=== PATIENT | female | born 1945 | race Caucasian/White ===

== ENCOUNTER 2016-09-18 13:03 | Inpatient (IN) | payer OTHER ==
[~2016-09-18] VITALS: Ht 160 cm; Wt 73.2 kg
[2016-09-18] MEDS ORDERED: ONDANSETRON 4 MG INJ IV STA ×2 (15:35→18:46)
[2016-09-18] MEDS ORDERED: SOD CHLORIDE 0.9% 1,000 ML IV STA (15:35)
[2016-09-18] MEDS ORDERED: morphine 4 MG/ML VIAL IV STA ×2 (15:35→18:46)
[2016-09-18 16:06] LABS: ADD SCAN DIFF NO
[2016-09-18 16:08] LABS: BASOPHILS % 0.3 % (0.0-2.0); EOSINOPHILS # 0.1 10^3/ul (0.0-0.5); EOSINOPHILS % 0.8 % (0.0-7.0); HEMATOCRIT 49.2 % (37.0-47.0); HEMOGLOBIN 15.9 g/dl (12.0-16.0); LYMPHOCYTES % 32.6 % (15.0-51.0); MEAN CORPUSCULAR HEMOGLOBIN 27.5 pg (29.0-33.0); MEAN CORPUSCULAR HGB CONC 32.3 g/dl (32.0-37.0); MEAN CORPUSCULAR VOLUME 85.1 fl (82.0-101.0); MEAN PLATELET VOLUME 8.7 fl (7.4-10.4); MONOCYTE # 0.5 10^3/ul (0.3-0.9); MONOCYTES % 5.5 % (0.0-11.0); NEUTROPHIL # 5.6 10^3/ul (1.6-7.5); NEUTROPHILS % 60.4 % (39.0-77.0); PLATELET COUNT 342 10^3/UL (140-415); RED BLOOD COUNT 5.78 10^6/ul (4.20-5.40); RED CELL DISTRIBUTION WIDTH 13.2 % (11.5-14.5); WHITE BLOOD COUNT 9.2 10^3/ul (4.8-10.8)
--- NOTE | 2016-09-18 16:19 | RADRPT ---
PROCEDURE: US Abdomen. CLINICAL INDICATION: abdominal pain TECHNIQUE: Multiple real-time images were acquired of the patient's right upper quadrant abdomen a nd retroperitoneum utilizing a high resolution transducer. COMPARISON: None FINDINGS: The liver demonstrates increased echogenicity. The liver is normal in size. There is a focal 2.2 x 1.4 cm hypoechoic area in the right lobe of the liver, anterior to the gallbladder. The liver measu res 16.5 cm in length. The portal vein is patent with normal direction of flow. No intrahepatic abbey iary dilatation is seen. No gallstones are identified within the gallbladder. There is no pericholecystic fluid or gallbladd er wall thickening. The common bile duct measures 4 mm in maximal dimension. The visualized portions of the pancreas are unremarkable. The tail of the pancreas is not seen. No free fluid is identified. The right kidney is normal in size, and demonstrate normal echogenicity and cortical thickness. The right kidney measures 11.1 cm in long dimension. There is no evidence of hydronephrosis. There are no kidney stones. RPTAT: AA IMPRESSION: Fatty infiltration of the liver. 2.2 cm hypoechoic area in the right lobe of the liver, anterior to the gallbladder, may represent a focal area of fatty sparing. However, a mass is not excluded and further evaluation with MRI of the liver on a routine basis is recommended. .Bull Solis MD, MD Date Time Electronically viewed and signed by .Bull Solis MD, MD on 09/18/2016 16:19 .S/
[2016-09-18 16:28] LABS: INR 0.93; PARTIAL THROMBOPLASTIN TIME 30.9 Sec (25.0-35.0); PROTIME 12.5 Sec (12.2-14.2)
[2016-09-18] MEDS ORDERED: FOSI20TA PO (16:31)
[2016-09-18] MEDS ORDERED: METF500T4 PO ×2 (16:32→16:33)
[2016-09-18] MEDS ORDERED: SIMV20TA2 PO (16:35)
[2016-09-18] MEDS ORDERED: ASPI-664 PO (16:37)
[2016-09-18 16:43] LABS: CHLORIDE 100 mmol/L (97-110); POTASSIUM 3.8 mmol/L (3.5-5.1); SODIUM 143 mmol/L (135-144)
[2016-09-18 16:45] LABS: ALBUMIN/GLOBULIN RATIO 1.25; ALKALINE PHOSPHATASE 117 IU/L (42-121); AMYLASE 88 U/L (11-123); ANION GAP 21 (8-16); ASPARTATE AMINO TRANSFERASE 26 IU/L (15-46); BILIRUBIN,INDIRECT 0.6 mg/dl (0-1.1); BILIRUBIN,TOTAL 0.6 mg/dl (0.2-1.3); BLOOD UREA NITROGEN 22 mg/dl (7-20); CARBON DIOXIDE 26 mmol/L (21-31); CREATININE 0.64 mg/dl (0.44-1.00)
[2016-09-18 16:46] LABS: ALANINE AMINOTRANSFERASE 28 IU/L (13-69); CALCIUM 9.5 mg/dl (8.4-10.2); GLUCOSE 103 mg/dl (70-220)
[2016-09-18 16:59] LABS: TROPONIN-I < 0.012 ng/ml (0.00-0.12)
--- NOTE | 2016-09-18 17:43 | ERD ---
ER Documentation Chief Complaint Date/Time DATE: 09/18/16 TIME: 17:37 Chief Complaint PERSISTENT RUQ PAIN, MARLONA X 8 DAYS HPI This is a very pleasant 70-year-old female with a known history of diabetes and high blood pressure that presents to the emergency department complaining of persistent right upper quadrant pain for the past 8 days. The patient indicates the pain does radiate to the tip of her right scapula. She states that the pain is a sharp shooting pain and there is no alleviating or exacerbating factors to the pain. She states the pain is 6 out of 10 in intensity. She is felt nauseous but denies any hemoptysis hematemesis or melanotic stools. She denies any frequency urgency or dysuria no gross hematuria. She denies any pain that radiates to her lower abdomen. She denies any weight loss. She denies a productive or nonproductive cough. She denies any recent travel or prolonged immobilization and has no shortness of breath at rest or exertion. She states food does not exacerbate her pain and she denies a retrosternal burning epigastric chest pain. ROS All systems reviewed and are negative except as per history of present illness. Medications Home Meds Reported Medications Aspirin* (Aspirin* EC) 81 Mg Tablet.dr, 81 MG PO DAILY WITH FOOD, TAB 09/18/16 Simvastatin (Simvastatin) 20 Mg Tablet, 20 MG PO QHS for HIGH CHOLESTEROL, #30 TAB 09/18/16 Metformin* (Glucophage*) 500 Mg Tab, 500 MG PO WITH EVENING MEALS, #30 TAB 09/18/16 Fosinopril Sodium (Fosinopril Sodium) 20 Mg Tablet, 20 MG PO DAILY for BLOOD PRESSURE and KIDNEYS, TAB 09/18/16 Discontinued Reported Medications Metformin* (Glucophage*) 500 Mg Tab, 500 MG PO WITH MEALS, #90 TAB 09/18/16 Allergies Allergies: Coded Allergies: No Known Allergy (Unverified , 09/18/16) PMhx/Soc Hx Alcohol Use: No Hx Substance Use: No Hx Tobacco Use: No Smoking Status: Never smoker Physical Exam Vitals Vital Signs Date Time Temp Pulse Resp B/P Pulse Ox O2 Delivery O2 Flow Rate FiO2 09/18/16 13:15 98.7 79 19 166/96 95 Physical Exam Constitutional:Well-developed. Well-nourished. HEENT:Normocephalic. Atraumatic.Pupils were equal round reactive to light. Moist mucous membranes.No tonsillar exudates. Neck: No nuchal rigidity. No lymphadenopathy. No posterior cervical spine tenderness or step-offs. Respiratory: Not using accessory muscles of respiration.Lungs were clear to auscultation bilaterally. No rhonchi. No rales. No wheezing. Cardiovascular: Regular rate regular rhythm.No murmurs. No rubs were appreciated.S1, S2 normal. Distal pulses are palpable 2+ bilaterally. GI: Abdomen was soft. Tenderness in the right upper quadrant with negative Davila sign. No tenderness in the right lower quadrant over McBurneys point. Non Distended. No pulsatile abdominal masses or bruits. No rebound. No guarding. Bowel sounds were present and normal. Muscle skeletal: Full range of motion of both the upper and lower extremities bilaterally.Normal muscle tone.No assymetrical calf tenderness or swelling. Skin: No petechia, no purpura. No lesions on the palms or the soles of the feet. No maculopapular rash. NEURO: Patient was alert, awake, orientated x3.No facial droop. Gait observed and normal with no ataxia.Speech had regular rate and rhythm. No focal neurological deficits. Result Diagram: 09/18/16 1540 09/18/16 1540 Results 24 hrs Laboratory Tests Test 09/18/16 15:40 White Blood Count 9.210^3/ul Red Blood Count 5.7810^6/ul Hemoglobin 15.9g/dl Hematocrit 49.2% Mean Corpuscular Volume 85.1fl Mean Corpuscular Hemoglobin 27.5pg Mean Corpuscular Hemoglobin Concent 32.3g/dl Red Cell Distribution Width 13.2% Platelet Count 56220^3/UL Mean Platelet Volume 8.7fl Neutrophils % 60.4% Lymphocytes % 32.6% Monocytes % 5.5% Eosinophils % 0.8% Basophils % 0.3% Nucleated Red Blood Cells % 0.0/100WBC Neutrophils # 5.610^3/ul Lymphocytes # 3.010^3/ul Monocytes # 0.510^3/ul Eosinophils # 0.110^3/ul Basophils # 0.010^3/ul Nucleated Red Blood Cells # 0.010^3/ul Prothrombin Time 12.5Sec Prothrombin Time Ratio 1.0 INR International Normalized Ratio 0.93 Activated Partial Thromboplast Time 30.9Sec Sodium Level 143mmol/L Potassium Level 3.8mmol/L Chloride Level 100mmol/L Carbon Dioxide Level 26mmol/L Anion Gap 21 Blood Urea Nitrogen 22mg/dl Creatinine 0.64mg/dl Glucose Level 103mg/dl Calcium Level 9.5mg/dl Total Bilirubin 0.6mg/dl Direct Bilirubin 0.00mg/dl Indirect Bilirubin 0.6mg/dl Aspartate Amino Transf (AST/SGOT) 26IU/L Alanine Aminotransferase (ALT/SGPT) 28IU/L Alkaline Phosphatase 117IU/L Troponin I < 0.012ng/ml Total Protein 9.0g/dl Albumin 5.0g/dl Globulin 4.00g/dl Albumin/Globulin Ratio 1.25 Amylase Level 88U/L Lipase 102U/L Current Medications Medications (Trade) Dose Ordered Sig/Marti Route PRN Reason Start Time Stop Time Status Last Admin Dose Admin Sodium Chloride (NS) 1,000 ml @ 1,000 mls/hr Q1H STAT IV 09/18/16 15:35 09/18/16 16:34 DC 09/18/16 16:43 Morphine Sulfate (morphine) 4 mg ONCE STAT IV 09/18/16 15:35 09/18/16 15:39 DC 09/18/16 16:43 Ondansetron HCl (Zofran Inj) 4 mg ONCE STAT IV 09/18/16 15:35 09/18/16 15:39 DC 09/18/16 16:43 IV Flush 10 ml 10 ml STK-MED ONCE .ROUTE 09/18/16 17:53 09/18/16 17:54 DC 09/18/16 18:04 Sodium Chloride (NS) 100 ml @ ud STK-MED ONCE .ROUTE 09/18/16 17:53 09/18/16 17:54 DC 09/18/16 18:05 Iohexol (Omnipaque 300mg/ ml) 150 ml STK-MED ONCE .ROUTE 09/18/16 17:53 09/18/16 17:54 DC 09/18/16 18:05 Procedures/MDM This patient presented to the emergency department with abdominal pain and was seen and evaluated by myself. My differential diagnosis included but was not limited to abdominal aortic aneurysm, appendicitis, pancreatitis, perforated peptic ulcer, perforated viscus, Boerhaaves syndrome or visceral pain such as diverticulitis, DKA, esophagitis, hepatitis or bowel obstruction. The patient was placed on a bus driver/monitor, continuous pulse oximetry, and IV access was established by nursing staff. 12 Lead EKG tracing ordered and reviewed by myself showed: Normal sinus rhythm of 79 bpm and no arrhythmia. VA interval normal. QRS duration normal. No ST segment elevation. Left axis deviation No ST segment depression. No changes consistent with acute ischemia. I obtained an ultrasound of the gallbladder and there is no evidence of cholelithiasis. The patient still complained of a significant amount of pain despite being given analgesic medication. Therefore did not feel is necessary at this time and to obtain a CT scan of the abdomen which was reviewed by both myself and the radiologist and indicated followin. 4 cm by 3.2 x 2.9 cm mass in the distal body and tail of the pancreas. Pancreatic neoplasm is suspected. 2. Dilatation of the distal pancreatic duct and distal common bile duct. MRCP or ERCP might be considered for further evaluation to evaluate for pancreatic duct stenosis or ampullary tumor. No pancreatic mass or evidence of choledocholithiasis. 3. Fatty infiltration of the liver with no hepatic metastasis. No intrahepatic biliary ductal dilatation. 4. Accessory splenule. 5. Ground-glass and plate-like densities in the right left lower lobes consistent with atelectasis. 6. Diastasis rectus with a small midline umbilical hernia containing only fat. 7. 2.8 cm right adnexal cyst. This can be further evaluated with ultrasound if clinically indicated. A right ovarian cyst, paraovarian cyst or mesenteric cyst might present this fashion. 8. Status post hysterectomy. 9. Osteoarthritis of the thoracic and lumbosacral spine. 10. Atherosclerotic vascular disease. The patient received a further dose of analgesic medication with no improvement of her pain. Therefore did feel the patient required admission for observation for intractable abdominal pain and further evaluation into a suspected new onset pancreatic neoplasm. Departure Diagnosis: Primary Impression: Abdominal pain Abdominal location: right upper quadrant Qualified Code: R10.11 - Right upper quadrant abdominal pain Additional Impression: Pancreatic neoplasm Condition: Serious JAMESON JACOBS Sep 18, 2016 17:43
[2016-09-18] MEDS ORDERED: SOD CHLORIDE 0.9% 100 ML ONE (17:53)
[2016-09-18] MEDS ORDERED: IOHEXOL 300MG/ML 150 ML BTL ONE (17:53)
--- NOTE | 2016-09-18 18:28 | RADRPT ---
PROCEDURE: CT scan of the abdomen and pelvis with and without IV contrast. CLINICAL INDICATION: 70-year-old female with history of prior hysterectomy, hypertension and type 2 diabetes. Right upper quadrant abdominal pain. TECHNIQUE: Thin section axial, coronal and sagittal images were performed through the abdomen and pelvis without contrast and then following the injection of 90 cc of Omnipaque-300. Low-dose protoco l imaging was utilized. One or more of the following dose reduction techniques were used: - Automated exposure control. - Adjustment of the mA and/or kV according to patient size. Use of iterative reconstruction technique. Radiation Dose: CTDI: 18.5 and DLP: 1066 COMPARISON: None FINDINGS: Lungs and pleural space: There is peripheral atelectasis in the right left lower lobes. Soft tissues the visible portions of both breasts are normal. There are subcutaneous calcifications in the right and left gluteal areas which likely represent old injection sites. Heart: The heart is upper limits of normal size. No pericardial or pleural effusion is present. The liver, common bile duct and gallbladder: There is fatty infiltration of the liver which measures 14.2 cm AP. No hepatic mass or intrahepatic biliary ductal dilatation is identified. The gallblad gin and gallbladder wall are normal. Pancreas: There is a 3.2 x 2 point a 504 cm mass with low attenuation in the distal body and tail of the pancreas. The main pancreatic duct measures 2.5 mm which is normal. The proximal main pancrea tic duct measures 5.8 mm which is dilated. The common bile duct measures 7.1 mm which is enlarged. No choledocolith is identified. Gastrointestinal: The stomach is unremarkable but incompletely distended which accounts for gastric wall thickening. The small bowel loops are normal. There is fecal material in the colon. There is a small umbilical hernia containing fat. There is diastasis rectus. The vermiform appendix is not visualized. There is no evidence of diverticulosis or diverticulitis. Kidneys and bladder : The adrenal glands are normal. There are small benign left renal cysts measur ing under 1 cm in size. These require no follow-up. No solid mass or nephrolith is identified. Adrenal glands: Normal. Spleen: Normal. There is a 1.2 cm accessory splenule. Lymph nodes: There are small inguinal lymph nodes. Reproductive system: 82 point a by 2.2 by 2.5 cm cyst is noted in the right ovary. The uterus and l eft ovary are not identified. There are phleboliths in the pelvis. Bony elements: There are degenerative changes in the lower thoracic and lumbar spine. No acute bony fracture or bone metastasis is identified. Vasculature: There are atherosclerotic vascular calcifications in the abdominal aorta, common iliac arteries, internal and external iliac and at the origin of the celiac artery. IMPRESSION: 1. 4 cm by 3.2 x 2.9 cm mass in the distal body and tail of the pancreas. Pancreatic neoplasm is s uspected. 2. Dilatation of the distal pancreatic duct and distal common bile duct. MRCP or ERCP might be cons idered for further evaluation to evaluate for pancreatic duct stenosis or ampullary tumor. No pancr eatic mass or evidence of choledocholithiasis. 3. Fatty infiltration of the liver with no hepatic metastasis. No intrahepatic biliary ductal dilat ation. 4. Accessory splenule. 5. Ground-glass and plate-like densities in the right left lower lobes consistent with atelectasis. 6. Diastasis rectus with a small midline umbilical hernia containing only fat. 7. 2.8 cm right adnexal cyst. This can be further evaluated with ultrasound if clinically indicate d. A right ovarian cyst, paraovarian cyst or mesenteric cyst might present this fashion. 8. Status post hysterectomy. 9. Osteoarthritis of the thoracic and lumbosacral spine. 10. Atherosclerotic vascular disease. RPTAT:AAJJ Physician Pedro Date Time Electronically viewed and signed by Physician Pedro on 09/18/2016 18:28 MARIE/
[2016-09-18] MEDS ORDERED: DICLOFENAC SODIUM 37.5 MG/ML VIAL IV STA (18:46)
[2016-09-18] MEDS ORDERED: ACETAMINOPHEN 325 MG TAB PO PRN (21:00)
[2016-09-18] MEDS ORDERED: ONDANSETRON 4 MG INJ IV PRN (21:00)
[2016-09-18 22:40] VITALS: TEMP 98.5
[2016-09-19 00:24] VITALS: BP 129/74; PULSE 74; RESP 18
[2016-09-19 00:25] VITALS: Ht 160 cm; Wt 73.2 kg
[2016-09-19] MEDS ORDERED: MAGNESIUM HYDROXIDE 30ML CUP PO PRN (01:00)
[2016-09-19] MEDS ORDERED: NACL 0.9% 3 ML SYG IV SCH (01:00)
[2016-09-19] MEDS ORDERED: ALBUTEROL/IPRATROPIUM (NEB) 3 ML AMP HHN PRN (01:00)
[2016-09-19] MEDS ORDERED: morphine 2 MG INJ IV PRN (01:00)
[2016-09-19] MEDS ORDERED: ONDANSETRON 4 MG INJ IV PRN (01:00)
[2016-09-19] MEDS ORDERED: ACETAMINOPHEN 325 MG TAB PO PRN (01:00)
[2016-09-19] MEDS: ACCU-CHEK XX SCH (01:19)
[2016-09-19 05:02] LABS: ADD SCAN DIFF NO
[2016-09-19 05:03] LABS: BASOPHILS % 0.1 % (0.0-2.0); EOSINOPHILS % 0.5 % (0.0-7.0); HEMATOCRIT 41.4 % (37.0-47.0); HEMOGLOBIN 13.8 g/dl (12.0-16.0); LYMPHOCYTES # 2.4 10^3/ul (0.8-2.9); LYMPHOCYTES % 27.5 % (15.0-51.0); MEAN CORPUSCULAR HEMOGLOBIN 28.8 pg (29.0-33.0); MEAN CORPUSCULAR HGB CONC 33.3 g/dl (32.0-37.0); MEAN CORPUSCULAR VOLUME 86.4 fl (82.0-101.0); MEAN PLATELET VOLUME 8.6 fl (7.4-10.4); MONOCYTE # 0.7 10^3/ul (0.3-0.9); MONOCYTES % 7.6 % (0.0-11.0); NEUTROPHIL # 5.6 10^3/ul (1.6-7.5); PLATELET COUNT 296 10^3/UL (140-415); RED BLOOD COUNT 4.79 10^6/ul (4.20-5.40); RED CELL DISTRIBUTION WIDTH 13.2 % (11.5-14.5); WHITE BLOOD COUNT 8.7 10^3/ul (4.8-10.8)
[2016-09-19 05:22] LABS: ALBUMIN 3.8 g/dl (3.3-4.9)
[2016-09-19 05:23] LABS: POTASSIUM 4.5 mmol/L (3.5-5.1)
[2016-09-19 05:25] LABS: ALBUMIN/GLOBULIN RATIO 1.18; BILIRUBIN,INDIRECT 0.4 mg/dl (0-1.1); BILIRUBIN,TOTAL 0.4 mg/dl (0.2-1.3); CREATININE 0.82 mg/dl (0.44-1.00); PHOSPHORUS 4.4 mg/dl (2.5-4.9)
[2016-09-19 05:26] LABS: CALCIUM 8.8 mg/dl (8.4-10.2); MAGNESIUM 2.2 mg/dl (1.7-2.5)
--- NOTE | 2016-09-19 06:21 | HP ---
Date/Time of Note Date/Time of Note DATE: 09/19/16 TIME: 06:21 Assessment/Plan VTE Prophylaxis VTE Prophylaxis Intervention: heparin Lines/Catheters IV Catheter Type (from Nrsg): Saline Lock Assessment/Plan Assessment/Plan IMPRESSION 1. Probable Newly dx'd Pancreatic cancer 2. Abd Pain, likely 2/2 above 3. Hx of HTN 4. Hx of Type II Diabetes 5. hx of Dyslipidemia PLAN - Will place an Oncology consult as well as GI consult given dilated pancreatic ducts. Will discuss best way to obtain biopsy with Oncology and GI - pain mgmt - Cont home meds, but hold metformin. Instead Insulin for DM while in-patient HPI/ROS Admit Date/Time Admit Date/Time Sep 18, 2016 at 20:50 Hx of Present Illness Patient is a 70 yo female with hx of HTN, DM, Dyslipidemia who presented to hospital c/o abd pain x 1 week. Pain is diffuse, but mainly located in RUQ area with associated nausea. She reported decreased po intake as a result. Denied Chest pain, SOB, fever, chills. In ER CT a/p showed 4 cm by 3.2 x 2.9 cm mass in the distal body and tail of the pancreas. Pancreatic neoplasm is suspected. Dilatation of the distal pancreatic duct and distal common bile duct. MRCP or ERCP might be considered for further evaluation to evaluate for pancreatic duct stenosis or ampullary tumor. No pancreatic mass or evidence of choledocholithiasis. Fatty infiltration of the liver with no hepatic metastasis. No intrahepatic biliary ductal dilatation. . PMH/Family/Social Past Medical History Medical History: diabetes, high cholesterol, hypertension Social History Alcohol Use: none Smoking Status: Never smoker Drug Use: none Exam/Review of Systems Vital Signs Vitals Vital Signs Date Time Temp Pulse Resp B/P Pulse Ox O2 Delivery O2 Flow Rate FiO2 09/19/16 00:24 98.5 74 18 129/74 92 Room Air Intake and Output 09/18/16 09/18/16 09/19/16 14:59 22:59 06:59 Intake Total 480 ml Balance 480 ml Labs Result Diagram: 09/19/160 09/19/16439 Medications Medications Current Medications Ondansetron HCl (Zofran Inj) 4 mg Q6H PRN IV NAUSEA AND/OR VOMITING; Start at 01:00 Acetaminophen (Tylenol Tab) 650 mg Q6H PRN PO PAIN LEVEL 1-3 OR FEVER; Start at 01:00 Oxycodone/ Acetaminophen (Percocet (5/ 325)) 1 tab Q6H PRN PO MODERATE PAIN LEVEL 4-6; Start 09/19/16 at 01:00 Morphine Sulfate (morphine) 3 mg Q4H PRN IV SEVERE PAIN LEVEL 7-10; Start 09/19 at 01:00 Magnesium Hydroxide (Milk Of Mag) 30 ml DAILY PRN PO CONSTIPATION; Start at 01:00 Enoxaparin Sodium (Lovenox) 40 mg DAILY SC ; Start 09/19/16 at 09:00 Aspirin (Halfprin) 81 mg DAILY PO ; Start 09/19/16 at 09:00 Insulin Glargine (Lantus) 10 unit DAILY@08 SC ; Start 09/19/16 at 08:00 Diagnostic Test (Pha) (Accu-Chek) 1 ea 02 XX ; Start 09/19/16 at 02:00 Atorvastatin Calcium (Lipitor) 10 mg DAILY@21 PO ; Start 09/19/16 at 21:00 Benazepril HCl (Lotensin) 20 mg DAILY PO ; Start 09/19/16 at 09:00 CEDRICK PARKER MD Sep 19, 2016 06:21
--- NOTE | 2016-09-19 06:21 | PN ---
Date/Time of Note Date/Time of Note DATE: 09/19/16 TIME: 06:10 Assessment/Plan VTE Prophylaxis VTE Prophylaxis Intervention: heparin Lines/Catheters IV Catheter Type (from Nrsg): Saline Lock Assessment/Plan Assessment/Plan IMPRESSION 1. Probable Newly dx'd Pancreatic cancer 2. Abd Pain, likely 2/2 above 3. Hx of HTN 4. Hx of Type II Diabetes 5. hx of Dyslipidemia PLAN - Will place an Oncology consult as well as GI consult given dilated pancreatic ducts. Will discuss best way to obtain biopsy with Oncology and GI - pain mgmt - Cont home meds, but hold metformin. Instead Insulin for DM while in-patient Subjective 24 Hr Interval Summary Free Text/Dictation reported improved abd pain Exam/Review of Systems Vital Signs Vitals Vital Signs Date Time Temp Pulse Resp B/P Pulse Ox O2 Delivery O2 Flow Rate FiO2 09/19/16 00:24 98.5 74 18 129/74 92 Room Air Intake and Output 09/18/16 09/18/16 09/19/16 14:59 22:59 06:59 Intake Total 480 ml Balance 480 ml Exam Constitutional: alert, oriented, other (No acute distress) Head: atraumatic, normocephalic Eyes: EOMI, PERRL Respiratory: clear to auscultation, normal air movement Cardiovascular: nl pulses, regular rate and rhythm Gastrointestinal: soft, tender Extremities: normal pulses Results Result Diagram: 09/19/16 0440 09/19/16 0440 Results 24 hrs Laboratory Tests Test 09/18/16 15:40 09/19/16 04:40 White Blood Count 9.2 8.7 Red Blood Count 5.78 H 4.79 Hemoglobin 15.9 13.8 Hematocrit 49.2 H 41.4 Mean Corpuscular Volume 85.1 86.4 Mean Corpuscular Hemoglobin 27.5 L 28.8 L Mean Corpuscular Hemoglobin Concent 32.3 33.3 Red Cell Distribution Width 13.2 13.2 Platelet Count 342 296 Mean Platelet Volume 8.7 8.6 Neutrophils % 60.4 64.0 Lymphocytes % 32.6 27.5 Monocytes % 5.5 7.6 Eosinophils % 0.8 0.5 Basophils % 0.3 0.1 Nucleated Red Blood Cells % 0.0 0.0 Neutrophils # 5.6 5.6 Lymphocytes # 3.0 H 2.4 Monocytes # 0.5 0.7 Eosinophils # 0.1 0.0 Basophils # 0.0 0.0 Nucleated Red Blood Cells # 0.0 0.0 Prothrombin Time 12.5 Prothrombin Time Ratio 1.0 INR International Normalized Ratio 0.93 Activated Partial Thromboplast Time 30.9 Sodium Level 143 142 Potassium Level 3.8 4.5 Chloride Level 100 104 Carbon Dioxide Level 26 28 Anion Gap 21 H 15 Blood Urea Nitrogen 22 H 22 H Creatinine 0.64 0.82 Glucose Level 103 136 Calcium Level 9.5 8.8 Total Bilirubin 0.6 0.4 Direct Bilirubin 0.00 0.00 Indirect Bilirubin 0.6 0.4 Aspartate Amino Transf (AST/SGOT) 26 24 Alanine Aminotransferase (ALT/SGPT) 28 22 Alkaline Phosphatase 117 76 Troponin I < 0.012 Total Protein 9.0 H 7.0 # Albumin 5.0 H 3.8 # Globulin 4.00 H 3.20 Albumin/Globulin Ratio 1.25 1.18 Amylase Level 88 Lipase 102 Phosphorus Level 4.4 Magnesium Level 2.2 Medications Medications Current Medications Ondansetron HCl (Zofran Inj) 4 mg Q6H PRN IV NAUSEA AND/OR VOMITING; Start at 01:00 Acetaminophen (Tylenol Tab) 650 mg Q6H PRN PO PAIN LEVEL 1-3 OR FEVER; Start at 01:00 Oxycodone/ Acetaminophen (Percocet (5/ 325)) 1 tab Q6H PRN PO MODERATE PAIN LEVEL 4-6; Start 09/19/16 at 01:00 Morphine Sulfate (morphine) 3 mg Q4H PRN IV SEVERE PAIN LEVEL 7-10; Start 09/19 at 01:00 Magnesium Hydroxide (Milk Of Mag) 30 ml DAILY PRN PO CONSTIPATION; Start at 01:00 Enoxaparin Sodium (Lovenox) 40 mg DAILY SC ; Start 09/19/16 at 09:00 Aspirin (Halfprin) 81 mg DAILY PO ; Start 09/19/16 at 09:00 Insulin Glargine (Lantus) 10 unit DAILY@08 SC ; Start 09/19/16 at 08:00 Diagnostic Test (Pha) (Accu-Chek) 1 ea 02 XX ; Start 09/19/16 at 02:00 Atorvastatin Calcium (Lipitor) 10 mg DAILY@21 PO ; Start 09/19/16 at 21:00 Benazepril HCl (Lotensin) 20 mg DAILY PO ; Start 09/19/16 at 09:00 CEDRICK PARKER MD Sep 19, 2016 06:20
[2016-09-19] MEDS ORDERED: GLUCOSE GEL 15 GRAM TUBE PO PRN ×2 (07:00)
[2016-09-19] MEDS ORDERED: GLUCOSE GEL 15 GRAM TUBE BUCCAL PRN (07:00)
[2016-09-19] MEDS ORDERED: DEXTROSE 50% 50 ML SYRINGE IV PRN ×2 (07:00)
[2016-09-19] MEDS ORDERED: GLUCAGON 1 MG INJ IM PRN (07:00)
[2016-09-19] MEDS: INSULIN ASPART [NOVOLOG] 3 ML PEN SC SCH ×4 (07:50→21:00)
[2016-09-19 07:52] VITALS: BP 101/65; RESP 18
[2016-09-19] MEDS: ASPIRIN (EC) 81 MG TAB PO SCH (08:26)
[2016-09-19] MEDS: BENAZEPRIL 20 MG TAB PO SCH (08:26)
[2016-09-19] MEDS: ENOXAPARIN 40 MG/0.4 ML SYG SC SCH (08:30)
[2016-09-19] MEDS: INSULIN GLARGINE [LANtus] 3 ML PEN SC SCH (08:30)
[2016-09-19] MEDS ORDERED: FOSINOPRIL SODIUM 20 MG PO SCH (09:00)
[2016-09-19] MEDS: OXYCODONE/ACETAMINOPHEN (5/325) TAB PO PRN ×2 (13:21→21:58)
--- NOTE | 2016-09-19 13:22 | CONS ---
[facility] INITIAL INPATIENT CONSULTATION NOTE DATE OF CONSULTATION: 09/19/2016 PLACE OF SERVICE: [facility] 4th floor IMPRESSION AND PLAN: A very pleasant 70-year-old lady with a few comorbidities including BMI 28.6, hypertension, hyperlipidemia, and recent diagnosis of diabetes mellitus presenting with what appears to be rather unremarkable gallbladder, slightly plum-appearing common bile duct and pancreatic duct and head of the pancreas, and a 3 to 4 cm lesion in the tail of the pancreas that could be intraductal papillary mucinous neoplasm, a mucinous cystadenoma or cystadenocarcinoma, or a serous cystadenoma. The patient has had a diagnosis of diabetes mellitus over the last few months and that is concerning for a malignant process in the pancreas. We still have questions about functionality of the gallbladder and the head of the pancreas area, and for this reason, I am recommending further testing with HIDA scan and MRCP as well as GI consultation to be done here in the hospital and setting the patient up for endoscopic ultrasound for further evaluation of the tail of the pancreas. I explained all the above to the patient and family in detail and answered all their questions to the best of my ability. They appeared to understand and agreed with the plan. With above assessment, I have recommend the followin. HIDA scan. 2. MRCP. 3. Gastroenterology consultation. 4. Set up endoscopic ultrasound evaluation as an outpatient. Thank you again for allowing us to participate in the care of this very pleasant lady and her wonderful family. If there are any questions, please feel free to contact me at [phone]. TOTAL VISIT TIME: 45 minutes of which more than half was spent in [id number] discussion with the patient, discussions with her daughter, as well as coordination of care between multiple physicians and providers. UPDATED CLINICAL SUMMARY: The patient is a very pleasant 70-year-old lady with comorbidities including BMI 28.6 as well as hypertension, dyslipidemia, and a rather recent diagnosis of diabetes mellitus, admitted through the emergency department at [facility] with right upper quadrant pain and an incidentally discovered 4 cm x 3.2 cm x 2.9 cm mass in the distal body and tail of the pancreas. COMORBIDITIES: 1. BMI of 28.6. 2. Hypertension. 3. Dyslipidemia. 4. Type 2 diabetes mellitus diagnosed about 5 to 8 months ago. DATE OF ADMISSION: 09/18/2016 HISTORY OF PRESENT ILLNESS: The patient is a very pleasant 70-year-old lady with above-mentioned comorbidities whom we were kindly asked to consult. The patient herself reports right upper quadrant discomfort which has been going on for the last week. No associated fevers or chills. No changes in bowel or bladder habits. Diagnosis of diabetes mellitus for the last 5 to 8 months. No other major issues with the biliary system. No change in weight and no significant change in appetite and no change with type of food ingested. ALLERGIES: NO KNOWN DRUG ALLERGIES. MEDICATIONS: 1. Aspirin. 2. Fosinopril 3. Metformin. 4. Simvastatin. SOCIAL HISTORY: The patient lives with family. No reported history of smoking , drinking, or intravenous drug use. FAMILY HISTORY: No mention of major medical, surgical, or oncologic problems in the family. REVIEW OF SYSTEMS: Other than the above-mentioned, there are no other pertinent positives or pertinent negatives in a complete 14-point review of systems. PHYSICAL EXAMINATION: GENERAL: The patient appears to be a very pleasant lady of descent, appearing stated age, lying in bed comfortably and in no acute distress. BMI is 28.6. VITAL SIGNS: Temperature 97.7, blood pressure 101/65, pulse 65, respiratory rate 18, pulse oximetry 99% on room air. HEENT: Normocephalic and atraumatic. Extraocular muscles and hearing are grossly intact bilaterally and symmetrically. Sclerae are nonicteric. Oral cavity is clear; oral mucosa appeared to be pink and moist. Dentition: fair. NECK: Supple. There is no lymphadenopathy or JVD. There is no submental, submandibular or supraclavicular lymphadenopathy. CHEST: Rises symmetrically with each breath; patient is breathing comfortably. There are no audible wheezes, rales or rhonchi on the gross exam. HEART: Pulse is regular and palpable on the left wrist. Capillary refill was normal. Carotid pulses are palpable bilaterally and symmetrically in the neck. EXTREMITIES: Lower extremities contain no pitting edema around the ankles bilaterally and symmetrically. ABDOMEN: Soft, nondistended, and minimally tender to palpation in the right upper quadrant. No tenderness in the left upper quadrant. No organomegaly, caput medusae, engorged subcutaneous veins, or evidence of ascites. No peritoneal signs or guarding. SKIN: Appears to be pink and feels warm to touch. NEUROLOGIC: Awake, alert, and follows commands appropriately. LABORATORY DATA: White blood cell count 8.7, platelets 296, albumin 3.8 after resuscitation. Hemoglobin A1c 6.5. Electrolytes are normal, CO2 28, creatinine 0.82, total bilirubin 0.4, AST 24, ALT 22, alkaline phosphatase 76, amylase 88, lipase 102, INR 0.93. IMAGING: Findings were reviewed above. Note that I personally reviewed all the available and pertinent images, and I agree in general with their overall reported findings. The right upper quadrant ultrasound on 09/18/2016 showed fatty infiltration of the liver and no obvious abnormalities of the gallbladder. Common bile duct was measured 4 mm in maximal dimension. The CT scan showed a slightly larger than what is expected common bile duct and pancreatic duct in the head and the above-mentioned lesion in the tail of the pancreas. Dictated By: DELIA WOOD/DENILSON Conf#: [id number] DID#: [id number] MTDD
--- NOTE | 2016-09-19 15:20 | CONS ---
Date/Time of Note Date/Time of Note DATE: 09/19/16 TIME: 15:09 Assessment/Plan Assessment/Plan Chief Complaint/Hosp Course The patient is a 70 year old female with HTN, HLD, and recent diagnosis of diabetes mellitus, who was admitted for right upper quadrant pain associated with nausea and found to have a 4 cm x 3.2 x 2.9 cm mass in the distal body and tail of the pancreas with dilation of the distal pancreatic duct and distal common bile duct, as well as a 2.8 cm right adnexal cyst. # Distal body and tail of the pancreas mass, 4 x 3.2 x 2.9 cm - Discussed with radiologist Dr. Walter who felt that appearance of mass is more of a cystic lesion than a pancreatic adenocarcinoma. There is no vascular involvement and no other evidence of disease in the abdomen/pelvis so could potentially be resectable. - Discussed possibly biopsy by IR but Dr. Walter is hesitant due to concern for seeding. Would recommend GI consultation. Consider EUS/biopsy unless lesion too distal to reach by EUS. - Appreciate Dr. Maurer's recommendations. Agree that new diagnosis of diabetes mellitus is concerning for malignant process in the pancreas, though imaging more suspicious for cystic lesion. Therefore would want tissue confirmation prior to undertaking major surgery such as distal pancreatectomy. - Will obtain CT chest for staging - Will obtain tumor markers CA 19-9, CEA, as well as CA 125 given adnexal mass though more likely cyst. # Right adnexal cyst. Will obtain baseline US per radiologist recommendation and check CA 125. Problems: Consultation Date/Type/Reason Admit Date/Time Sep 18, 2016 at 20:50 Date of Consultation: Sep 19, 2016 Type of Consultation: Oncology Reason for Consultation Pancreatic mass Hx of Present Illness The patient is a 70 year old female with HTN, HLD, and recent diagnosis of diabetes mellitus, who was admitted for right upper quadrant pain associated with nausea and found to have a 4 cm x 3.2 x 2.9 cm mass in the distal body and tail of the pancreas with dilation of the distal pancreatic duct and distal common bile duct, as well as a 2.8 cm right adnexal cyst. The patient reports RUQ pain for the past week, no fevers/chills, no changes in bowel or bladder habits. She had the same pain about two months ago. She was diagnosed with diabetes mellitus in the last 5-8 months. No weight loss and no change in appetite. She feels normal with normal activity level, except for pain x 1 week. She currently denies pain due to pain medications. CT A/P with and without IV contrast 09/18/16 1. 4 cm by 3.2 x 2.9 cm mass in the distal body and tail of the pancreas. Pancreatic neoplasm is suspected. 2. Dilatation of the distal pancreatic duct and distal common bile duct. MRCP or ERCP might be considered for further evaluation to evaluate for pancreatic duct stenosis or ampullary tumor. No pancreatic mass or evidence of choledocholithiasis. 3. Fatty infiltration of the liver with no hepatic metastasis. No intrahepatic biliary ductal dilatation. 4. Accessory splenule. 5. Ground-glass and plate-like densities in the right left lower lobes consistent with atelectasis. 6. Diastasis rectus with a small midline umbilical hernia containing only fat. 7. 2.8 cm right adnexal cyst. This can be further evaluated with ultrasound if clinically indicated. A right ovarian cyst, paraovarian cyst or mesenteric cyst might present this fashion. 8. Status post hysterectomy. 9. Osteoarthritis of the thoracic and lumbosacral spine. 10. Atherosclerotic vascular disease. Past Medical History Medical History: diabetes, high cholesterol, hypertension Family History Significant Family History: no pertinent family hx Social History Alcohol Use: none Smoking Status: Never smoker Drug Use: none Exam/Review of Systems Vital Signs Vitals Vital Signs Date Time Temp Pulse Resp B/P Pulse Ox O2 Delivery O2 Flow Rate FiO2 09/19/16 07:52 97.7 65 18 101/65 99 09/19/16 00:24 Room Air Intake and Output 09/18/16 09/18/16 09/19/16 14:59 22:59 06:59 Intake Total 480 ml Balance 480 ml Exam Constitutional: alert, oriented Psych: no complaints Head: normocephalic Neck: supple Respiratory: clear to auscultation Cardiovascular: regular rate and rhythm Gastrointestinal: non-tender, soft Musculoskeletal: nl extremities to inspection Neurological: MOBILE MANAGER II-XII intact Results Result Diagram: 09/19/160 09/19/16439 Results 24 hrs Laboratory Tests Test 09/18/16 15:40 09/19/16 04:40 09/19/16 08:24 09/19/16 12:12 White Blood Count 9.2 8.7 Red Blood Count 5.78 H 4.79 Hemoglobin 15.9 13.8 Hematocrit 49.2 H 41.4 Mean Corpuscular Volume 85.1 86.4 Mean Corpuscular Hemoglobin 27.5 L 28.8 L Mean Corpuscular Hemoglobin Concent 32.3 33.3 Red Cell Distribution Width 13.2 13.2 Platelet Count 342 296 Mean Platelet Volume 8.7 8.6 Neutrophils % 60.4 64.0 Lymphocytes % 32.6 27.5 Monocytes % 5.5 7.6 Eosinophils % 0.8 0.5 Basophils % 0.3 0.1 Nucleated Red Blood Cells % 0.0 0.0 Neutrophils # 5.6 5.6 Lymphocytes # 3.0 H 2.4 Monocytes # 0.5 0.7 Eosinophils # 0.1 0.0 Basophils # 0.0 0.0 Nucleated Red Blood Cells # 0.0 0.0 Prothrombin Time 12.5 Prothrombin Time Ratio 1.0 INR International Normalized Ratio 0.93 Activated Partial Thromboplast Time 30.9 Sodium Level 143 142 Potassium Level 3.8 4.5 Chloride Level 100 104 Carbon Dioxide Level 26 28 Anion Gap 21 H 15 Blood Urea Nitrogen 22 H 22 H Creatinine 0.64 0.82 Glucose Level 103 136 Calcium Level 9.5 8.8 Total Bilirubin 0.6 0.4 Direct Bilirubin 0.00 0.00 Indirect Bilirubin 0.6 0.4 Aspartate Amino Transf (AST/SGOT) 26 24 Alanine Aminotransferase (ALT/SGPT) 28 22 Alkaline Phosphatase 117 76 Troponin I < 0.012 Total Protein 9.0 H 7.0 # Albumin 5.0 H 3.8 # Globulin 4.00 H 3.20 Albumin/Globulin Ratio 1.25 1.18 Amylase Level 88 Lipase 102 Hemoglobin A1c 6.5 H Phosphorus Level 4.4 Magnesium Level 2.2 Bedside Glucose 94 107 Medications Medications Current Medications Ondansetron HCl (Zofran Inj) 4 mg Q6H PRN IV NAUSEA AND/OR VOMITING; Start at 01:00 Acetaminophen (Tylenol Tab) 650 mg Q6H PRN PO PAIN LEVEL 1-3 OR FEVER; Start at 01:00 Oxycodone/ Acetaminophen (Percocet (5/ 325)) 1 tab Q6H PRN PO MODERATE PAIN LEVEL 4-6 Last administered on 09/19/16t 13:21; Admin Dose 1 TAB; Start at 01:00 Morphine Sulfate (morphine) 3 mg Q4H PRN IV SEVERE PAIN LEVEL 7-10; Start 09/19 at 01:00 Magnesium Hydroxide (Milk Of Mag) 30 ml DAILY PRN PO CONSTIPATION; Start at 01:00 Enoxaparin Sodium (Lovenox) 40 mg DAILY SC Last administered on 09/19/16 08:30 ; Admin Dose 40 MG; Start 09/19/16 at 09:00 Aspirin (Halfprin) 81 mg DAILY PO Last administered on 09/19/16 08:26; Admin Dose 81 MG; Start 09/19/16 at 09:00 Insulin Glargine (Lantus) 10 unit DAILY@08 SC Last administered on 09/19/16 08 :30; Admin Dose 10 UNIT; Start 09/19/16 at 08:00 Diagnostic Test (Pha) (Accu-Chek) 1 ea 02 XX ; Start 09/19/16 at 02:00 Atorvastatin Calcium (Lipitor) 10 mg DAILY@21 PO ; Start 09/19/16 at 21:00 Benazepril HCl (Lotensin) 20 mg DAILY PO Last administered on 09/19/16 08:26; Admin Dose 20 MG; Start 09/19/16 at 09:00 Miscellaneous Information 1 ea NOTE XX ; Start 09/19/16 at 07:00 Glucose (Glutose) 15 gm Q15M PRN PO DECREASED GLUCOSE; Start 09/19/16 at 07:00 Glucose (Glutose) 22.5 gm Q15M PRN PO DECREASED GLUCOSE; Start 09/19/16 at 07: 00 Dextrose (D50w Syringe) 25 ml Q15M PRN IV DECREASED GLUCOSE; Start 09/19/16 at 07:00 Dextrose (D50w Syringe) 50 ml Q15M PRN IV DECREASED GLUCOSE; Start 09/19/16 at 07:00 Glucagon (Glucagen) 1 mg Q15M PRN IM DECREASED GLUCOSE; Start 09/19/16 at 07:00 Glucose (Glutose) 15 gm Q15M PRN BUCCAL DECREASED GLUCOSE; Start 09/19/16 at 07 :00 SANJANA LEONARD MD Sep 19, 2016 15:20
--- NOTE | 2016-09-19 15:38 | CONS ---
Date/Time of Note Date/Time of Note DATE: 09/19/16 TIME: 15:23 Assessment/Plan Assessment/Plan Additional Assessment/Plan Assessment * Abdominal pain right upper quadrant * Low density pancreatic mass on CT distal tail and body/Dilated CBD and pancreatic duct * r/o cystic neoplasm vs solid neoplasm * r/o CBD pathology ie stones or other obstructive lesions * r/o ampullary obstructing lesion * Diabetes mellitus * Hypertension * Hyperlipidemia Plan * MRI/MRCP * CA19-9, CEA titers * ERCP vs EUS Consultation Date/Type/Reason Admit Date/Time Sep 18, 2016 at 20:50 Date of Consultation: Sep 19, 2016 Type of Consultation: Gastroenterology Reason for Consultation pancreatic mass Referring Provider: PITO LEE of Present Illness &1 year old female who was referred to emergency room because of right upper quadrant pain.Condition started 1 week ago as right upper quadrant pain sharp radiating to the back with associated nausea,Denies any history of vomiting, hematemesis nor jaundice.Past medical history includes new onset DM,Hypertension ,hyperlipidemia. Ct scan of abdomen revealed 1. 4 cm by 3.2 x 2.9 cm mass in the distal body and tail of the pancreas. Pancreatic neoplasm is suspected. 2. Dilatation of the distal pancreatic duct and distal common bile duct. MRCP or ERCP might be considered for further evaluation to evaluate for pancreatic duct stenosis or ampullary tumor. No pancreatic mass or evidence of choledocholithiasis. 3. Fatty infiltration of the liver with no hepatic metastasis. No intrahepatic biliary ductal dilatation. 4. Accessory splenule. 5. Ground-glass and plate-like densities in the right left lower lobes consistent with atelectasis. 6. Diastasis rectus with a small midline umbilical hernia containing only fat. 7. 2.8 cm right adnexal cyst. This can be further evaluated with ultrasound if clinically indicated. A right ovarian cyst, paraovarian cyst or mesenteric cyst might present this fashion. 8. Status post hysterectomy. 9. Osteoarthritis of the thoracic and lumbosacral spine. 10. Atherosclerotic vascular disease. On the floor ,patient still complains of right upper quadrant relieved with intake of analgesics,denies any vomiting,nor jaundice no fever, weight loss,nor changes in bowel habits Constitutional: improved, no complaints Eyes: no complaints ENT: no complaints Respiratory: no complaints Cardiovascular: no complaints Gastrointestinal: flatus, nausea, pain, passing stool, No blood Genitourinary: no complaints Musculoskeletal: no complaints Skin: no complaints Neurologic: no complaints Endocrine: no complaints Lymphatic: no complaints Psychological: nl mood/affect, no complaints Immunologic: no complaints Past Medical History Medical History: diabetes, high cholesterol, hypertension Past Surgical History Past Surgical Hx: no surgical history Family History Significant Family History: no pertinent family hx Social History Alcohol Use: none Smoking Status: Never smoker Drug Use: none Exam/Review of Systems Vital Signs Vitals Vital Signs Date Time Temp Pulse Resp B/P Pulse Ox O2 Delivery O2 Flow Rate FiO2 09/19/16 07:52 97.7 65 18 101/65 99 09/19/16 00:24 Room Air Intake and Output 09/18/16 09/18/16 09/19/16 15:00 23:00 07:00 Intake Total 480 ml Balance 480 ml Exam Constitutional: alert, oriented, well developed Psych: nl mood/affect, no complaints Head: atraumatic, normocephalic Eyes: EOMI, PERRL, nl conjunctiva, nl lids, nl sclera ENMT: nl external ears & nose Neck: non-tender, supple Respiratory: clear to auscultation, diminished breath sounds, normal air movement Cardiovascular: nl pulses, regular rate and rhythm Gastrointestinal: bowel sounds, nl liver, spleen, non-tender, soft, No rebound or guarding Musculoskeletal: nl extremities to inspection, nl gait and stance Extremities: normal pulses Neurological: TOOL CRIB MANAGER II-XII intact, nl mental status, nl speech, nl strength Skin: nl turgor, No rash or lesions Lymph: nl lymph nodes Results Result Diagram: 09/19/1643909/19/16 044 Results 24 hrs Laboratory Tests Test 09/18/16 15:40 09/19/16 04:40 09/19/16 08:24 09/19/16 12:12 White Blood Count 9.2 8.7 Red Blood Count 5.78 H 4.79 Hemoglobin 15.9 13.8 Hematocrit 49.2 H 41.4 Mean Corpuscular Volume 85.1 86.4 Mean Corpuscular Hemoglobin 27.5 L 28.8 L Mean Corpuscular Hemoglobin Concent 32.3 33.3 Red Cell Distribution Width 13.2 13.2 Platelet Count 342 296 Mean Platelet Volume 8.7 8.6 Neutrophils % 60.4 64.0 Lymphocytes % 32.6 27.5 Monocytes % 5.5 7.6 Eosinophils % 0.8 0.5 Basophils % 0.3 0.1 Nucleated Red Blood Cells % 0.0 0.0 Neutrophils # 5.6 5.6 Lymphocytes # 3.0 H 2.4 Monocytes # 0.5 0.7 Eosinophils # 0.1 0.0 Basophils # 0.0 0.0 Nucleated Red Blood Cells # 0.0 0.0 Prothrombin Time 12.5 Prothrombin Time Ratio 1.0 INR International Normalized Ratio 0.93 Activated Partial Thromboplast Time 30.9 Sodium Level 143 142 Potassium Level 3.8 4.5 Chloride Level 100 104 Carbon Dioxide Level 26 28 Anion Gap 21 H 15 Blood Urea Nitrogen 22 H 22 H Creatinine 0.64 0.82 Glucose Level 103 136 Calcium Level 9.5 8.8 Total Bilirubin 0.6 0.4 Direct Bilirubin 0.00 0.00 Indirect Bilirubin 0.6 0.4 Aspartate Amino Transf (AST/SGOT) 26 24 Alanine Aminotransferase (ALT/SGPT) 28 22 Alkaline Phosphatase 117 76 Troponin I < 0.012 Total Protein 9.0 H 7.0 # Albumin 5.0 H 3.8 # Globulin 4.00 H 3.20 Albumin/Globulin Ratio 1.25 1.18 Amylase Level 88 Lipase 102 Hemoglobin A1c 6.5 H Phosphorus Level 4.4 Magnesium Level 2.2 Bedside Glucose 94 107 Medications Medications Current Medications Ondansetron HCl (Zofran Inj) 4 mg Q6H PRN IV NAUSEA AND/OR VOMITING; Start at 01:00 Acetaminophen (Tylenol Tab) 650 mg Q6H PRN PO PAIN LEVEL 1-3 OR FEVER; Start at 01:00 Oxycodone/ Acetaminophen (Percocet (5/ 325)) 1 tab Q6H PRN PO MODERATE PAIN LEVEL 4-6 Last administered on 09/19/16 13:21; Admin Dose 1 TAB; Start at 01:00 Morphine Sulfate (morphine) 3 mg Q4H PRN IV SEVERE PAIN LEVEL 7-10; Start 09/19 at 01:00 Magnesium Hydroxide (Milk Of Mag) 30 ml DAILY PRN PO CONSTIPATION; Start at 01:00 Enoxaparin Sodium (Lovenox) 40 mg DAILY SC Last administered on 09/19/16 08:30 ; Admin Dose 40 MG; Start 09/19/16 at 09:00 Aspirin (Halfprin) 81 mg DAILY PO Last administered on 09/19/16 08:26; Admin Dose 81 MG; Start 09/19/16 at 09:00 Insulin Glargine (Lantus) 10 unit DAILY@08 SC Last administered on 09/19/16 08 :30; Admin Dose 10 UNIT; Start 09/19/16 at 08:00 Diagnostic Test (Pha) (Accu-Chek) 1 ea 02 XX ; Start 09/19/16 at 02:00 Atorvastatin Calcium (Lipitor) 10 mg DAILY@21 PO ; Start 09/19/16 at 21:00 Benazepril HCl (Lotensin) 20 mg DAILY PO Last administered on 09/19/16 08:26; Admin Dose 20 MG; Start 09/19/16 at 09:00 Miscellaneous Information 1 ea NOTE XX ; Start 09/19/16 at 07:00 Glucose (Glutose) 15 gm Q15M PRN PO DECREASED GLUCOSE; Start 09/19/16 at 07:00 Glucose (Glutose) 22.5 gm Q15M PRN PO DECREASED GLUCOSE; Start 09/19/16 at 07: 00 Dextrose (D50w Syringe) 25 ml Q15M PRN IV DECREASED GLUCOSE; Start 09/19/16 at 07:00 Dextrose (D50w Syringe) 50 ml Q15M PRN IV DECREASED GLUCOSE; Start 09/19/16 at 07:00 Glucagon (Glucagen) 1 mg Q15M PRN IM DECREASED GLUCOSE; Start 09/19/16 at 07:00 Glucose (Glutose) 15 gm Q15M PRN BUCCAL DECREASED GLUCOSE; Start 09/19/16 at 07 :00 ASHLEY CERVANTES MD Sep 19, 2016 15:33 Miscellaneous Information 1 ea NOTE XX ; Start 09/19/16 at 07:00 Glucose (Glutose) 15 gm Q15M PRN PO DECREASED GLUCOSE; Start 09/19/16 at 07:00 Glucose (Glutose) 22.5 gm Q15M PRN PO DECREASED GLUCOSE; Start 09/19/16 at 07: 00 Dextrose (D50w Syringe) 25 ml Q15M PRN IV DECREASED GLUCOSE; Start 09/19/16 at 07:00 Dextrose (D50w Syringe) 50 ml Q15M PRN IV DECREASED GLUCOSE; Start 09/19/16 at 07:00 Glucagon (Glucagen) 1 mg Q15M PRN IM DECREASED GLUCOSE; Start 09/19/16 at 07:00 Glucose (Glutose) 15 gm Q15M PRN BUCCAL DECREASED GLUCOSE; Start 09/19/16 at 07 :00 ASHLEY CERVANTES MD Sep 19, 2016 15:33
[2016-09-19 20:59] VITALS: BP 129/67; RESP 18
[2016-09-19] MEDS ORDERED: NON-FORMULARY/PATIENT OWN MED (Simvastatin 20 MG) PO SCH (21:00)
--- NOTE | 2016-09-19 21:47 | RADRPT ---
PROCEDURE: HIDA scan CLINICAL INDICATION: 70 -year-old patient with abdominal pain. TECHNIQUE: Following the intravenous injection of 7.6 mCi of Tc-99m mebrofenin, multiple images of the abdomen were obtained up to 60 minutes post injection. COMPARISON: No prior studies. FINDINGS: The liver is promptly visualized, demonstrates homogeneous distribution of radionuclide. There is visualization of a persistent activity in the common bile duct. There is a visualization of the gallbladder and gastrointestinal activity within normal time. IMPRESSION: 1. No evidence of a cystic duct obstruction. 2. Persistent common bile duct activity up to 60 minutes post injection and a visualization of franck l activity possibly represents physiologic uptake; a partial common bile duct obstruction cannot be entirely ruled out. Please, consider further evaluation with MRCP if clinically indicated. RPTAT: QQ .Skye Craft MD, Date Time Electronically viewed and signed by .Skye Craft MD, on 09/19/2016 21:47 .L/
[2016-09-19] MEDS: ATORVASTATIN 10 MG TAB PO SCH (21:54)
[2016-09-20] MEDS: ACCU-CHEK XX SCH (02:00)
[2016-09-20 05:19] LABS: ADD SCAN DIFF NO
[2016-09-20 05:24] LABS: BASOPHILS % 0.3 % (0.0-2.0); EOSINOPHILS # 0.1 10^3/ul (0.0-0.5); EOSINOPHILS % 1.6 % (0.0-7.0); HEMATOCRIT 44.2 % (37.0-47.0); HEMOGLOBIN 14.1 g/dl (12.0-16.0); LYMPHOCYTES # 2.9 10^3/ul (0.8-2.9); MEAN CORPUSCULAR HEMOGLOBIN 27.9 pg (29.0-33.0); MEAN CORPUSCULAR HGB CONC 31.9 g/dl (32.0-37.0); MEAN CORPUSCULAR VOLUME 87.4 fl (82.0-101.0); MEAN PLATELET VOLUME 8.8 fl (7.4-10.4); MONOCYTE # 0.5 10^3/ul (0.3-0.9); MONOCYTES % 7.2 % (0.0-11.0); NEUTROPHIL # 3.8 10^3/ul (1.6-7.5); NEUTROPHILS % 51.6 % (39.0-77.0); PLATELET COUNT 298 10^3/UL (140-415); RED BLOOD COUNT 5.06 10^6/ul (4.20-5.40); RED CELL DISTRIBUTION WIDTH 13.8 % (11.5-14.5); WHITE BLOOD COUNT 7.3 10^3/ul (4.8-10.8)
[2016-09-20 05:43] LABS: POTASSIUM 4.2 mmol/L (3.5-5.1)
[2016-09-20 05:46] LABS: CREATININE 0.77 mg/dl (0.44-1.00)
[2016-09-20 05:47] LABS: CALCIUM 9.1 mg/dl (8.4-10.2); MAGNESIUM 2.2 mg/dl (1.7-2.5); PHOSPHORUS 4.8 mg/dl (2.5-4.9)
[2016-09-20 06:13] LABS: CANCER ANTIGEN 125 14.6 U/ml (0.0-35.0); CARCINOEMBRYONIC ANTIGEN 1.9 ng/ml (0.0-5.0)
[2016-09-20 06:17] LABS: CANCER ANTIGEN 19-9 32.5 U/ml (0.0-37.0)
[2016-09-20 07:25] VITALS: BP 95/62; RESP 20
[2016-09-20] MEDS: INSULIN ASPART [NOVOLOG] 3 ML PEN SC SCH ×4 (07:50→21:00)
[2016-09-20] MEDS: INSULIN GLARGINE [LANtus] 3 ML PEN SC SCH (08:15)
[2016-09-20] MEDS: ENOXAPARIN 40 MG/0.4 ML SYG SC SCH (08:16)
--- NOTE | 2016-09-20 09:59 | PN ---
Date/Time of Note Date/Time of Note DATE: 09/20/16 TIME: 09:54 Assessment/Plan Lines/Catheters IV Catheter Type (from [facility]): Saline Lock Assessment/Plan Assessment/Plan [facility] Progress Note Date of Service: 09/20/16 Today's Impression & Plan: Overall stable with clinical picture concerning for malignancy. Tail of pancreas cystic lesion and possible process in head of pancreas. Needs further w /u which she is undergoing currently. HIDA concerning for possible CBD obstruction. MRCP pending (? being done now since patient was not in her room). I advise against percutaneous biopsy and strongly recommend EUS evaluation agustin. No indication for acute surgical intervention. With above assessment, I've recommended the following for today: 1. F/u with MRCP 2. Possible need for ERCP eval if CBD obstruction noted on MRCP; otherwise, suggest expedited EUS eval (has to be done outside of [facility] since not available here) 3. Multidisciplinary tumor board presentation Thank you again for your great care of this very pleasant patient and wonderful family. If there are any questions, please feel free to call me at [phone]. TOTAL VISIT TIME: 20 minutes of which more than half was spent in [id number] discussion with the patient, possibly including family, as well as coordination of care between multiple physicians and providers. Disclaimer: Inadvertent spelling or grammatical errors are likely due to EHR/ dictation software use and do not reflect on the overall quality of patient care. Updated Clinical Summary: The patient is a very pleasant 70-year-old lady with comorbidities including BMI 28.6 as well as hypertension, dyslipidemia, and a rather recent diagnosis of diabetes mellitus, admitted through the emergency department at [facility] with right upper quadrant pain and an incidentally discovered 4 cm x 3.2 cm x 2.9 cm mass in the distal body and tail of the pancreas. COMORBIDITIES: 1. BMI of 28.6. 2. Hypertension. 3. Dyslipidemia. 4. Type 2 diabetes mellitus diagnosed about 5 to 8 months ago. Subjective: No major reported events or complaints; no reported abd pain and under control with medications; not in her room Objective: Vitals: See below Exam: Not in her room Exam/Review of Systems Vital Signs Vitals Vital Signs Date Time Temp Pulse Resp B/P Pulse Ox O2 Delivery O2 Flow Rate FiO2 09/20/16 07:25 98.2 62 20 95/62 93 09/19/16 00:24 Room Air Intake and Output 09/19/16 09/19/16 09/20/16 15:00 23:00 07:00 Intake Total 1300 ml 240 ml Output Total 600 ml 450 ml Balance 700 ml -210 ml Results Result Diagram: 09/20/16 0433 09/20/16 0436 DELIA BURNS M.D. Sep 20, 2016 09:59
[2016-09-20] MEDS: ASPIRIN (EC) 81 MG TAB PO SCH (10:43)
[2016-09-20] MEDS: OXYCODONE/ACETAMINOPHEN (5/325) TAB PO PRN (10:43)
[2016-09-20] MEDS: BENAZEPRIL 20 MG TAB PO SCH (10:43)
[2016-09-20 10:44] VITALS: BP 125/74; PULSE 62
--- NOTE | 2016-09-20 11:05 | RADRPT ---
PROCEDURE: US Pelvis CLINICAL INDICATION: Pelvic pain TECHNIQUE: Transabdominal and transvaginal sonographic evaluation of the pelvis was performed. COMPARISON: None. FINDINGS: Status post hysterectomy. The ovaries are not visualized. No adnexal mass. No free pelvic fluid is demonstrated. IMPRESSION: Status post hysterectomy. The ovaries are not visualized. No adnexal masses. RPTAT:PP .Jez Olivares MD, MD Date Time Electronically viewed and signed by .Jez Olivares MD, MD on 09/20/2016 11:05 .V/
--- NOTE | 2016-09-20 12:43 | CONS ---
Date/Time of Note Date/Time of Note DATE: 09/20/16 TIME: 12:37 Assessment/Plan Assessment/Plan Chief Complaint/Hosp Course The patient is a 70 year old female with HTN, HLD, and recent diagnosis of diabetes mellitus, who was admitted for right upper quadrant pain associated with nausea and found to have a 4 cm x 3.2 x 2.9 cm mass in the distal body and tail of the pancreas with dilation of the distal pancreatic duct and distal common bile duct, as well as a 2.8 cm right adnexal cyst. # Distal body and tail of the pancreas mass, 4 x 3.2 x 2.9 cm - Discussed with radiologist Dr. Walter who felt that appearance of mass is more of a cystic lesion than a pancreatic adenocarcinoma. There is no vascular involvement and no other evidence of disease in the abdomen/pelvis so could potentially be resectable. - Appreciate GI recs, with plan for MRI/MRCP, ERCP vs. EUS. Consider EUS/ biopsy unless lesion too distal to reach by EUS. - Appreciate Dr. Maurer's recommendations. Agree that new diagnosis of diabetes mellitus is concerning for malignant process in the pancreas, though imaging more suspicious for cystic lesion. Therefore would want tissue confirmation prior to undertaking major surgery such as distal pancreatectomy. Per Dr. Maurer, advise against percutaneous biopsy (per radiology, concern for potential seeding) and strongly recommend EUS evaluation agustin. No indication for acute surgical intervention. - HIDA concerning for possible CBD obstruction. MRCP pending. Plan for possible ERCP eval if CBD obstruction noted on MRCP; otherwise, suggest expedited EUS eval (has to be done outside of [facility] since not available here). - Pending CT chest for staging - Tumor markers CA 19-9 (32, normal < 37), CEA (1.9, normal < 5), as well as CA 125 (14.6, normal < 35) are all within normal limits # Right adnexal cyst on CT, however US pelvis demonstrates no adnexal masses. CA 125 normal. With a office sweeper, I explained to the patient that we are in the process of working up the pancreatic mass. I did confirm with the office sweeper that the patient would not want to know her diagnosis and that she wants her family to make decisions on her behalf. Will continue to follow Problems: Consultation Date/Type/Reason Admit Date/Time Sep 18, 2016 at 20:50 Initial Consult Date 09/19/16 Type of Consultation: Oncology Referring Provider: PITO LEE 24 HR Interval Summary Free Text/Dictation Patient doing well, feels "good," no pain at this time. Exam/Review of Systems Vital Signs Vitals Vital Signs Date Time Temp Pulse Resp B/P Pulse Ox O2 Delivery O2 Flow Rate FiO2 09/20/16 10:44 62 125/74 09/20/16 07:25 98.2 20 93 09/19/16 00:24 Room Air Intake and Output 09/19/16 09/19/16 09/20/16 15:00 23:00 07:00 Intake Total 1300 ml 240 ml Output Total 600 ml 450 ml Balance 700 ml -210 ml Exam Constitutional: alert, oriented Psych: no complaints Head: normocephalic Neck: supple Respiratory: clear to auscultation Cardiovascular: regular rate and rhythm Gastrointestinal: non-tender, soft Musculoskeletal: nl extremities to inspection Neurological: MANAGER PHYSICAL II-XII intact Results Result Diagram: 09/20/16 0433 09/20/16 0436 Results 24 hrs Laboratory Tests Test 09/19/16 17:41 09/19/16 21:35 09/20/16 04:33 09/20/16 04:36 Bedside Glucose 99 98 White Blood Count 7.3 Red Blood Count 5.06 Hemoglobin 14.1 Hematocrit 44.2 Mean Corpuscular Volume 87.4 Mean Corpuscular Hemoglobin 27.9 L Mean Corpuscular Hemoglobin Concent 31.9 L Red Cell Distribution Width 13.8 Platelet Count 298 Mean Platelet Volume 8.8 Neutrophils % 51.6 Lymphocytes % 39.0 Monocytes % 7.2 Eosinophils % 1.6 Basophils % 0.3 Nucleated Red Blood Cells % 0.0 Neutrophils # 3.8 Lymphocytes # 2.9 Monocytes # 0.5 Eosinophils # 0.1 Basophils # 0.0 Nucleated Red Blood Cells # 0.0 Sodium Level 141 Potassium Level 4.2 Chloride Level 101 Carbon Dioxide Level 30 Anion Gap 14 Blood Urea Nitrogen 19 Creatinine 0.77 Glucose Level 106 Calcium Level 9.1 Phosphorus Level 4.8 Magnesium Level 2.2 Carcinoembryonic Antigen 1.9 CA 19-9 Antigen 32.5 CA 125 Antigen 14.6 Test 09/20/16 04:38 09/20/16 08:13 09/20/16 12:24 Bedside Glucose 104 118 163 Medications Medications Current Medications Ondansetron HCl (Zofran Inj) 4 mg Q6H PRN IV NAUSEA AND/OR VOMITING Last administered on 09/20/16 04:39; Admin Dose 4 MG; Start 09/19/16 at 01:00 Acetaminophen (Tylenol Tab) 650 mg Q6H PRN PO PAIN LEVEL 1-3 OR FEVER; Start at 01:00 Oxycodone/ Acetaminophen (Percocet (5/ 325)) 1 tab Q6H PRN PO MODERATE PAIN LEVEL 4-6 Last administered on 09/20/16 10:43; Admin Dose 1 TAB; Start at 01:00 Morphine Sulfate (morphine) 3 mg Q4H PRN IV SEVERE PAIN LEVEL 7-10 Last administered on 09/20/16 04:46; Admin Dose 3 MG; Start 09/19/16 at 01:00 Magnesium Hydroxide (Milk Of Mag) 30 ml DAILY PRN PO CONSTIPATION; Start at 01:00 Enoxaparin Sodium (Lovenox) 40 mg DAILY SC Last administered on 09/20/16 08:16 ; Admin Dose 40 MG; Start 09/19/16 at 09:00 Aspirin (Halfprin) 81 mg DAILY PO Last administered on 09/20/16 10:43; Admin Dose 81 MG; Start 09/19/16 at 09:00 Insulin Glargine (Lantus) 10 unit DAILY@08 SC Last administered on 09/20/16 08 :15; Admin Dose 10 UNIT; Start 09/19/16 at 08:00 Diagnostic Test (Pha) (Accu-Chek) 1 ea 02 XX ; Start 09/19/16 at 02:00 Atorvastatin Calcium (Lipitor) 10 mg DAILY@21 PO Last administered on 21:54; Admin Dose 10 MG; Start 09/19/16 at 21:00 Benazepril HCl (Lotensin) 20 mg DAILY PO Last administered on 09/20/16 10:43; Admin Dose 20 MG; Start 09/19/16 at 09:00 Miscellaneous Information 1 ea NOTE XX ; Start 09/19/16 at 07:00 Glucose (Glutose) 15 gm Q15M PRN PO DECREASED GLUCOSE; Start 09/19/16 at 07:00 Glucose (Glutose) 22.5 gm Q15M PRN PO DECREASED GLUCOSE; Start 09/19/16 at 07: 00 Dextrose (D50w Syringe) 25 ml Q15M PRN IV DECREASED GLUCOSE; Start 09/19/16 at 07:00 Dextrose (D50w Syringe) 50 ml Q15M PRN IV DECREASED GLUCOSE; Start 09/19/16 at 07:00 Glucagon (Glucagen) 1 mg Q15M PRN IM DECREASED GLUCOSE; Start 09/19/16 at 07:00 Glucose (Glutose) 15 gm Q15M PRN BUCCAL DECREASED GLUCOSE; Start 09/19/16 at 07 :00 TOSANJANA MD Sep 20, 2016 12:43
--- NOTE | 2016-09-20 15:10 | PN ---
Date/Time of Note Date/Time of Note DATE: 09/20/16 TIME: 15:08 Assessment/Plan VTE Prophylaxis VTE Prophylaxis Intervention: ambulation Lines/Catheters IV [facility] (from [facility]): Saline Lock Assessment/Plan Assessment/Plan Abdominal pain right upper quadrant improved * Low density pancreatic mass on CT distal tail and body/Dilated CBD and pancreatic duct * r/o cystic neoplasm vs solid neoplasm * r/o CBD pathology ie stones or other obstructive lesions * r/o ampullary obstructing lesion * Diabetes mellitus * Hypertension * Hyperlipidemia Plan * await MRI/MRCP results * CA19-9, CEA titers * ERCP vs EUS Subjective 24 Hr Interval Summary Free Text/Dictation * Course reviewed with RN * Patient seen and examined * no complaints * still awaiting MRCP results Exam/Review of Systems Vital Signs Vitals Vital Signs Date Time Temp Pulse Resp B/P Pulse Ox O2 Delivery O2 Flow Rate FiO2 09/20/16 10:44 62 125/74 09/20/16 07:25 98.2 20 93 09/19/16 00:24 Room Air Intake and Output 09/19/16 09/19/16 09/20/16 15:00 23:00 07:00 Intake Total 1300 ml 240 ml Output Total 600 ml 450 ml Balance 700 ml -210 ml Exam Constitutional: alert, oriented Psych: no complaints Head: normocephalic Eyes: nl conjunctiva, nl sclera Neck: non-tender, supple Respiratory: clear to auscultation, normal air movement Cardiovascular: nl pulses, regular rate and rhythm Gastrointestinal: non-tender, soft, No rebound or guarding Musculoskeletal: nl extremities to inspection, nl gait and stance Extremities: normal pulses Neurological: nl mental status, nl speech Results Result Diagram: 09/20/16 0433 09/20/16 0436 Results 24 hrs Laboratory Tests Test 09/19/16 17:41 09/19/16 21:35 09/20/16 04:33 09/20/16 04:36 Bedside Glucose 99 98 White Blood Count 7.3 Red Blood Count 5.06 Hemoglobin 14.1 Hematocrit 44.2 Mean Corpuscular Volume 87.4 Mean Corpuscular Hemoglobin 27.9 L Mean Corpuscular Hemoglobin Concent 31.9 L Red Cell Distribution Width 13.8 Platelet Count 298 Mean Platelet Volume 8.8 Neutrophils % 51.6 Lymphocytes % 39.0 Monocytes % 7.2 Eosinophils % 1.6 Basophils % 0.3 Nucleated Red Blood Cells % 0.0 Neutrophils # 3.8 Lymphocytes # 2.9 Monocytes # 0.5 Eosinophils # 0.1 Basophils # 0.0 Nucleated Red Blood Cells # 0.0 Sodium Level 141 Potassium Level 4.2 Chloride Level 101 Carbon Dioxide Level 30 Anion Gap 14 Blood Urea Nitrogen 19 Creatinine 0.77 Glucose Level 106 Calcium Level 9.1 Phosphorus Level 4.8 Magnesium Level 2.2 Carcinoembryonic Antigen 1.9 CA 19-9 Antigen 32.5 CA 125 Antigen 14.6 Test 09/20/16 04:38 09/20/16 08:13 09/20/16 12:24 Bedside Glucose 104 118 163 Medications Medications Current Medications Ondansetron HCl (Zofran Inj) 4 mg Q6H PRN IV NAUSEA AND/OR VOMITING Last administered on 09/20/16 04:39; Admin Dose 4 MG; Start 09/19/16 at 01:00 Acetaminophen (Tylenol Tab) 650 mg Q6H PRN PO PAIN LEVEL 1-3 OR FEVER; Start at 01:00 Oxycodone/ Acetaminophen (Percocet (5/ 325)) 1 tab Q6H PRN PO MODERATE PAIN LEVEL 4-6 Last administered on 09/20/16 10:43; Admin Dose 1 TAB; Start at 01:00 Morphine Sulfate (morphine) 3 mg Q4H PRN IV SEVERE PAIN LEVEL 7-10 Last administered on 09/20/16 04:46; Admin Dose 3 MG; Start 09/19/16 at 01:00 Magnesium Hydroxide (Milk Of Mag) 30 ml DAILY PRN PO CONSTIPATION; Start at 01:00 Enoxaparin Sodium (Lovenox) 40 mg DAILY SC Last administered on 09/20/16 08:16 ; Admin Dose 40 MG; Start 09/19/16 at 09:00 Aspirin (Halfprin) 81 mg DAILY PO Last administered on 09/20/16 10:43; Admin Dose 81 MG; Start 09/19/16 at 09:00 Insulin Glargine (Lantus) 10 unit DAILY@08 SC Last administered on 09/20/16 08 :15; Admin Dose 10 UNIT; Start 09/19/16 at 08:00 Diagnostic Test (Pha) (Accu-Chek) 1 ea 02 XX ; Start 09/19/16 at 02:00 Atorvastatin Calcium (Lipitor) 10 mg DAILY@21 PO Last administered on 21:54; Admin Dose 10 MG; Start 09/19/16 at 21:00 Benazepril HCl (Lotensin) 20 mg DAILY PO Last administered on 09/20/16 10:43; Admin Dose 20 MG; Start 09/19/16 at 09:00 Miscellaneous Information 1 ea NOTE XX ; Start 09/19/16 at 07:00 Glucose (Glutose) 15 gm Q15M PRN PO DECREASED GLUCOSE; Start 09/19/16 at 07:00 Glucose (Glutose) 22.5 gm Q15M PRN PO DECREASED GLUCOSE; Start 09/19/16 at 07: 00 Dextrose (D50w Syringe) 25 ml Q15M PRN IV DECREASED GLUCOSE; Start 09/19/16 at 07:00 Dextrose (D50w Syringe) 50 ml Q15M PRN IV DECREASED GLUCOSE; Start 09/19/16 at 07:00 Glucagon (Glucagen) 1 mg Q15M PRN IM DECREASED GLUCOSE; Start 09/19/16 at 07:00 Glucose (Glutose) 15 gm Q15M PRN BUCCAL DECREASED GLUCOSE; Start 09/19/16 at 07 :00 ASHLEY CERVANTES MD Sep 20, 2016 15:10
--- NOTE | 2016-09-20 16:02 | PN ---
Date/Time of Note Date/Time of Note DATE: 09/20/16 TIME: 15:36 Assessment/Plan VTE Prophylaxis VTE Prophylaxis Intervention: LMWH Lines/Catheters IV Catheter Type (from Nrs): Saline Lock Assessment/Plan Chief Complaint/Hosp Course 1. Probable Newly Dx'd Pancreatic cancer -Surgery, GI and Oncology consult appreciated pt will need EUS as out-pt and will F/U with [facility] as an out-pt -HIDA is negative, MRCP is pending - pain mgmt 2. Abd Pain, likely 2/2 above 3. Hx of HTN 4. Hx of Type II Diabetes -Cont home meds, but hold metformin. Instead Insulin for DM while in-patient PPx- Lovenox Problems: Subjective 24 Hr Interval Summary Gastrointestinal: pain Exam/Review of Systems Vital Signs Vitals Vital Signs Date Time Temp Pulse Resp B/P Pulse Ox O2 Delivery O2 Flow Rate FiO2 09/20/16 10:44 62 125/74 09/20/16 07:25 98.2 20 93 09/19/16 00:24 Room Air Intake and Output 09/19/16 09/19/16 09/20/16 15:00 23:00 07:00 Intake Total 1300 ml 240 ml Output Total 600 ml 450 ml Balance 700 ml -210 ml Exam Constitutional: alert Respiratory: clear to auscultation Cardiovascular: regular rate and rhythm Gastrointestinal: soft, No distended Musculoskeletal: nl extremities to inspection Results Result Diagram: 09/20/16 0433 09/20/16 0436 Results 24 hrs Laboratory Tests Test 09/19/16 17:41 09/19/16 21:35 09/20/16 04:33 09/20/16 04:36 Bedside Glucose 99 98 White Blood Count 7.3 Red Blood Count 5.06 Hemoglobin 14.1 Hematocrit 44.2 Mean Corpuscular Volume 87.4 Mean Corpuscular Hemoglobin 27.9 L Mean Corpuscular Hemoglobin Concent 31.9 L Red Cell Distribution Width 13.8 Platelet Count 298 Mean Platelet Volume 8.8 Neutrophils % 51.6 Lymphocytes % 39.0 Monocytes % 7.2 Eosinophils % 1.6 Basophils % 0.3 Nucleated Red Blood Cells % 0.0 Neutrophils # 3.8 Lymphocytes # 2.9 Monocytes # 0.5 Eosinophils # 0.1 Basophils # 0.0 Nucleated Red Blood Cells # 0.0 Sodium Level 141 Potassium Level 4.2 Chloride Level 101 Carbon Dioxide Level 30 Anion Gap 14 Blood Urea Nitrogen 19 Creatinine 0.77 Glucose Level 106 Calcium Level 9.1 Phosphorus Level 4.8 Magnesium Level 2.2 Carcinoembryonic Antigen 1.9 CA 19-9 Antigen 32.5 CA 125 Antigen 14.6 Test 09/20/16 04:38 09/20/16 08:13 09/20/16 12:24 Bedside Glucose 104 118 163 Medications Medications Current Medications Ondansetron HCl (Zofran Inj) 4 mg Q6H PRN IV NAUSEA AND/OR VOMITING Last administered on 09/20/16 04:39; Admin Dose 4 MG; Start 09/19/16 at 01:00 Acetaminophen (Tylenol Tab) 650 mg Q6H PRN PO PAIN LEVEL 1-3 OR FEVER; Start at 01:00 Oxycodone/ Acetaminophen (Percocet (5/ 325)) 1 tab Q6H PRN PO MODERATE PAIN LEVEL 4-6 Last administered on 09/20/16 10:43; Admin Dose 1 TAB; Start at 01:00 Morphine Sulfate (morphine) 3 mg Q4H PRN IV SEVERE PAIN LEVEL 7-10 Last administered on 09/20/16 04:46; Admin Dose 3 MG; Start 09/19/16 at 01:00 Magnesium Hydroxide (Milk Of Mag) 30 ml DAILY PRN PO CONSTIPATION; Start at 01:00 Enoxaparin Sodium (Lovenox) 40 mg DAILY SC Last administered on 09/20/16 08:16 ; Admin Dose 40 MG; Start 09/19/16 at 09:00 Aspirin (Halfprin) 81 mg DAILY PO Last administered on 09/20/16 10:43; Admin Dose 81 MG; Start 09/19/16 at 09:00 Insulin Glargine (Lantus) 10 unit DAILY@08 SC Last administered on 09/20/16 08 :15; Admin Dose 10 UNIT; Start 09/19/16 at 08:00 Diagnostic Test (Pha) (Accu-Chek) 1 ea 02 XX ; Start 09/19/16 at 02:00 Atorvastatin Calcium (Lipitor) 10 mg DAILY@21 PO Last administered on 21:54; Admin Dose 10 MG; Start 09/19/16 at 21:00 Benazepril HCl (Lotensin) 20 mg DAILY PO Last administered on 09/20/16 10:43; Admin Dose 20 MG; Start 09/19/16 at 09:00 Miscellaneous Information 1 ea NOTE XX ; Start 09/19/16 at 07:00 Glucose (Glutose) 15 gm Q15M PRN PO DECREASED GLUCOSE; Start 09/19/16 at 07:00 Glucose (Glutose) 22.5 gm Q15M PRN PO DECREASED GLUCOSE; Start 09/19/16 at 07: 00 Dextrose (D50w Syringe) 25 ml Q15M PRN IV DECREASED GLUCOSE; Start 09/19/16 at 07:00 Dextrose (D50w Syringe) 50 ml Q15M PRN IV DECREASED GLUCOSE; Start 09/19/16 at 07:00 Glucagon (Glucagen) 1 mg Q15M PRN IM DECREASED GLUCOSE; Start 09/19/16 at 07:00 Glucose (Glutose) 15 gm Q15M PRN BUCCAL DECREASED GLUCOSE; Start 09/19/16 at 07 :00 PITO LEE Sep 20, 2016 15:46
[2016-09-20 20:51] VITALS: BP 121/71; RESP 20
[2016-09-20] MEDS: ATORVASTATIN 10 MG TAB PO SCH (21:41)
[2016-09-21] MEDS: ACCU-CHEK XX SCH (01:56)
[2016-09-21] MEDS: OXYCODONE/ACETAMINOPHEN (5/325) TAB PO PRN (04:33)
[2016-09-21 07:32] VITALS: BP 106/67; PULSE 52; RESP 16
[2016-09-21] MEDS: INSULIN ASPART [NOVOLOG] 3 ML PEN SC SCH ×3 (07:50→17:55)
[2016-09-21 07:59] VITALS: BP 106/67; RESP 18
--- NOTE | 2016-09-21 08:29 | RADRPT ---
PROCEDURE: CT Chest without contrast. CLINICAL INDICATION: Pancreatic cancer. Staging scan. TECHNIQUE: CT scan of the chest without contrast was performed on a multidetector high-resolution CT scanner. Coronal and sagittal reformatted images were obtained from the axial source images. The total exam CTDI equals 15.56 mGy and the total exam DLP equals 574.20 mGy-cm. One or more of the following dose reduction techniques were used: Automated exposure control. Adjustment of the mA and/or kV according to patient size. Use of iterative reconstruction technique. COMPARISON: None FINDINGS: There is subsegmental atelectasis in the lung bases left being more prominent. No focal opacificatio n, effusion, pneumothorax, edema, or nodules are seen. There is no pulmonary infiltrate. No mass l esion to suggest neoplasm is identified. The central tracheobronchial tree is clear. The mediastinum is unremarkable without evidence for mass or lymphadenopathy. There are calcified ri ght hilar intrapulmonary and azygo-esophageal lymph nodes. The vascular structures of the mediastin um are normal in course and caliber. Aortic vascular calcifications are present. The heart size is enlarged without evidence for pericardial thickening or effusion. There is mild diffuse enlargement of the thyroid gland with no discrete thyroid nodule. The axillary regions, subpectoral regions, and supraclavicular regions are all unremarkable. Imagin g obtained through the upper abdomen reveals no acute abnormality. Redemonstrated is approximately 3 .7 cm mass in the tail of the pancreas. There is fatty infiltration of the liver. The surrounding osseous structures are remarkable for degenerative spondylosis of the spine. No osteolytic or osteo blastic lesion is detected. IMPRESSION: 1. No suspicious pulmonary nodules. 2. Bibasilar atelectasis left being more prominent. 3. Cardiomegaly. Scattered aortic vascular calcifications. 4. Mild diffuse enlargement of the thyroid gland right lobe being more prominent. No discrete thyro id nodules by CT. 5. Pancreatic tail mass. RPTAT: BB .Sudeep Stovall MD, Date Time Electronically viewed and signed by .Sudeep Stovall MD, on 09/21/2016 08:29 .O/
[2016-09-21] MEDS: BENAZEPRIL 20 MG TAB PO SCH (08:37)
[2016-09-21] MEDS: ASPIRIN (EC) 81 MG TAB PO SCH (08:37)
[2016-09-21] MEDS: INSULIN GLARGINE [LANtus] 3 ML PEN SC SCH (08:39)
--- NOTE | 2016-09-21 08:45 | RADRPT ---
PROCEDURE: MRCP without contrast. CLINICAL INDICATION: Right upper quadrant abdominal pain. TECHNIQUE: Routine MRCP was obtained without the administration of intravenous contrast. COMPARISON: None. FINDINGS: Gallbladder is unremarkable. A patent cystic duct is noted. There is mild to moderate intra and extrahepatic bile duct dilatation with common bile duct measurin g up to 12 mm in maximal diameter. There is no filling defect or choledocholithiasis. There is no biliary stricture. There is a multi septated cystic lesion occupying the pancreatic body/tail measuring up to 3.5 cm. The pancreatic duct demonstrates mild diffuse dilatation. There is no peripancreatic inflammation. IMPRESSION: Indeterminate extrahepatic biliary dilatation without choledocholithiasis or intraluminal filling de fect. If correlation with LFTs suggest cholestasis, consider ERCP as an ampullary lesion/stenosis w ould be difficult to exclude by MRCP. 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 Consider correlation with endoscopic ul trasound RPTAT: EE .Fran Stein MD, MD Date Time Electronically viewed and signed by .Fran Stein MD, on 09/21/2016 08:49 .C/
[2016-09-21] MEDS: ENOXAPARIN 40 MG/0.4 ML SYG SC SCH (09:32)
--- NOTE | 2016-09-21 14:24 | PN ---
Date/Time of Note Date/Time of Note DATE: 09/21/16 TIME: 14:01 Assessment/Plan Lines/Catheters IV Catheter Type (from [facility]): Peripheral IV Assessment/Plan Assessment/Plan [facility] Progress Note Date of Service: 09/21/16 Today's Impression & Plan: Overall stable. MRCP confirms cystic lesion in the tail of pancreas and borderline dilated CBD and pancreatic duct in the head. Will likely need ERCP eval (can be done here vs. scheduled at same time as EUS once d/c'd from hospital). If no head issues, she would need a distal pancreatectomy with splenectomy, assuming continued absence of evidence for metastatic disease. If IPMN and involvement of head of pancreas, then a total pancreatectomy would be considered (difficult operation to recover from and post op course is challenging with brittle diabetes). Would likely have her gallbladder out at the same time. No indication for acute surgical intervention. Left a message for Dr. Burris and discussed with patient, family and the team. With above assessment, I've recommended the following for today: 1. ? role for ERCP now vs. at time of outpatient EUS 2. D/c home when stable medically and after above is resolved 3. F/u with my office (please provide patient and family with my number: ) Thank you again for your great care of this very pleasant patient and wonderful family. If there are any questions, please feel free to call me at [phone]. TOTAL VISIT TIME: 20 minutes of which more than half was spent in [id number] discussion with the patient, possibly including family, as well as coordination of care between multiple physicians and providers. Disclaimer: Inadvertent spelling or grammatical errors are likely due to EHR/ dictation software use and do not reflect on the overall quality of patient care. Updated Clinical Summary: The patient is a very pleasant 70-year-old lady with comorbidities including BMI 28.6 as well as hypertension, dyslipidemia, and a rather recent diagnosis of diabetes mellitus, admitted through the emergency department at [facility] with right upper quadrant pain and an incidentally discovered 4 cm x 3.2 cm x 2.9 cm mass in the distal body and tail of the pancreas. HIDA showed persistent CBD activity after 60 min, possibly indicating partial CBD obstruction 09/20/15. MRCP on 09/21/16 confirmed cystic lesion in the tail of pancreas and borderline dilated CBD and pancreatic duct in the head. COMORBIDITIES: 1. BMI of 28.6. 2. Hypertension. 3. Dyslipidemia. 4. Type 2 diabetes mellitus diagnosed about 5 to 8 months ago. Subjective: No major reported events or complaints; reports band-like lower abd pain and under control with medications; no sob or cp; + flatus; + BM and normal; + activity Objective: Vitals: See below Exam: GENERAL: On exam, the patient was laying in bed and appeared to be comfortable and in no acute distress. ABDOMEN: Soft, nontender and nondistended. There are no peritoneal signs or guarding. SKIN: Skin appears to be pink and feels warm to touch. NEUROLOGIC: Patient is awake, alert, and follows commands appropriately. Exam/Review of Systems Vital Signs Vitals Vital Signs Date Time Temp Pulse Resp B/P Pulse Ox O2 Delivery O2 Flow Rate FiO2 09/21/16 07:59 97.6 52 18 106/67 92 09/21/16 07:32 Room Air Intake and Output 09/20/16 09/20/16 09/21/16 15:00 23:00 07:00 Intake Total 520 ml 300 ml Balance 520 ml 300 ml Results Result Diagram: 09/20/16 0433 09/20/16 0436 DELIA BURNS M.D. Sep 21, 2016 14:22
--- NOTE | 2016-09-21 15:36 | PN ---
Date/Time of Note Date/Time of Note DATE: 09/21/16 TIME: 15:26 Assessment/Plan VTE Prophylaxis VTE Prophylaxis Intervention: ambulation Lines/Catheters IV Catheter Type (from Nrs): Peripheral IV Assessment/Plan Assessment/Plan Abdominal pain right upper quadrant improved * Low density pancreatic mass on CT distal tail and body/Dilated CBD and pancreatic duct * Indeterminate extrahepatic biliary dilatation without choledocholithiasis or intraluminal filling defect. 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 pancreas by MRCP Diabetes mellitus * Hypertension * Hyperlipidemia Plan * Endoscopic ultrasound as outpatient basis Subjective 24 Hr Interval Summary Free Text/Dictation * Course reviewed with RN * Patient seen and examined * No abdominal pain * MRCP 09/20/2016 Indeterminate extrahepatic biliary dilatation without choledocholithiasis or intraluminal filling defect. If correlation with LFTs suggest cholestasis, consider ERCP as an ampullary lesion/stenosis would be difficult to exclude by MRCP. 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.Consider correlation with endoscopic ultrasound Exam/Review of Systems Vital Signs Vitals Vital Signs Date Time Temp Pulse Resp B/P Pulse Ox O2 Delivery O2 Flow Rate FiO2 09/21/16 07:59 97.6 52 18 106/67 92 09/21/16 07:32 Room Air Intake and Output 09/20/16 09/20/16 09/21/16 15:00 23:00 07:00 Intake Total 520 ml 300 ml Balance 520 ml 300 ml Exam Constitutional: alert, oriented Psych: no complaints Head: normocephalic Eyes: nl conjunctiva, nl sclera Neck: non-tender, supple Respiratory: clear to auscultation, normal air movement Cardiovascular: nl pulses, regular rate and rhythm Gastrointestinal: nl liver, spleen, non-tender, soft Musculoskeletal: nl extremities to inspection, nl gait and stance Extremities: normal pulses Neurological: nl mental status, nl speech Lymph: nl lymph nodes Results Result Diagram: 09/20/16 0433 09/20/16 0436 Results 24 hrs Laboratory Tests Test 09/20/16 17:21 09/20/16 21:40 09/21/16 07:41 09/21/16 11:32 Bedside Glucose 85 110 101 108 Medications Medications Current Medications Ondansetron HCl (Zofran Inj) 4 mg Q6H PRN IV NAUSEA AND/OR VOMITING Last administered on 09/20/16 04:39; Admin Dose 4 MG; Start 09/19/16 at 01:00 Acetaminophen (Tylenol Tab) 650 mg Q6H PRN PO PAIN LEVEL 1-3 OR FEVER; Start at 01:00 Oxycodone/ Acetaminophen (Percocet (5/ 325)) 1 tab Q6H PRN PO MODERATE PAIN LEVEL 4-6 Last administered on 09/21/16 04:33; Admin Dose 1 TAB; Start at 01:00 Morphine Sulfate (morphine) 3 mg Q4H PRN IV SEVERE PAIN LEVEL 7-10 Last administered on 09/20/16 04:46; Admin Dose 3 MG; Start 09/19/16 at 01:00 Magnesium Hydroxide (Milk Of Mag) 30 ml DAILY PRN PO CONSTIPATION; Start at 01:00 Enoxaparin Sodium (Lovenox) 40 mg DAILY SC Last administered on 09/21/16 09:32 ; Admin Dose 40 MG; Start 09/19/16 at 09:00 Aspirin (Halfprin) 81 mg DAILY PO Last administered on 09/21/16 08:37; Admin Dose 81 MG; Start 09/19/16 at 09:00 Insulin Glargine (Lantus) 10 unit DAILY@08 SC Last administered on 09/21/16 08 :39; Admin Dose 10 UNIT; Start 09/19/16 at 08:00 Diagnostic Test (Pha) (Accu-Chek) 1 ea 02 XX ; Start 09/19/16 at 02:00 Atorvastatin Calcium (Lipitor) 10 mg DAILY@21 PO Last administered on 21:41; Admin Dose 10 MG; Start 09/19/16 at 21:00 Benazepril HCl (Lotensin) 20 mg DAILY PO Last administered on 09/21/16 08:37; Admin Dose 20 MG; Start 09/19/16 at 09:00 Miscellaneous Information 1 ea NOTE XX ; Start 09/19/16 at 07:00 Glucose (Glutose) 15 gm Q15M PRN PO DECREASED GLUCOSE; Start 09/19/16 at 07:00 Glucose (Glutose) 22.5 gm Q15M PRN PO DECREASED GLUCOSE; Start 09/19/16 at 07: 00 Dextrose (D50w Syringe) 25 ml Q15M PRN IV DECREASED GLUCOSE; Start 09/19/16 at 07:00 Dextrose (D50w Syringe) 50 ml Q15M PRN IV DECREASED GLUCOSE; Start 09/19/16 at 07:00 Glucagon (Glucagen) 1 mg Q15M PRN IM DECREASED GLUCOSE; Start 09/19/16 at 07:00 Glucose (Glutose) 15 gm Q15M PRN BUCCAL DECREASED GLUCOSE; Start 09/19/16 at 07 :00 ASHLEY CERVANTES MD Sep 21, 2016 15:36
[2016-09-21 15:47] VITALS: BP 96/62; PULSE 60; RESP 20
--- NOTE | 2016-09-21 16:05 | CONS ---
Date/Time of Note Date/Time of Note DATE: 09/21/16 TIME: 15:59 Assessment/Plan Assessment/Plan Chief Complaint/Hosp Course The patient is a 70 year old female with HTN, HLD, and recent diagnosis of diabetes mellitus, who was admitted for right upper quadrant pain associated with nausea and found to have a 4 cm x 3.2 x 2.9 cm mass in the distal body and tail of the pancreas with dilation of the distal pancreatic duct and distal common bile duct, as well as a 2.8 cm right adnexal cyst. # Distal body and tail of the pancreas mass, 4 x 3.2 x 2.9 cm - Discussed with radiologist Dr. Walter who felt that appearance of mass is more of a cystic lesion than a pancreatic adenocarcinoma. There is no vascular involvement and no other evidence of disease in the abdomen/pelvis so could potentially be resectable. - Appreciate GI recs, with plan for ERCP vs. EUS. Consider EUS/biopsy unless lesion too distal to reach by EUS. - Appreciate Dr. Maurer's recommendations. Agree that new diagnosis of diabetes mellitus is concerning for malignant process in the pancreas, though imaging more suspicious for cystic lesion. Therefore would want tissue confirmation prior to undertaking major surgery such as distal pancreatectomy. Per Dr. Maurer, advise against percutaneous biopsy (per radiology, concern for potential seeding) and strongly recommend EUS evaluation agustin. No indication for acute surgical intervention. - HIDA concerning for possible CBD obstruction. - MRCP showed Indeterminate extrahepatic biliary dilatation without choledocholithiasis or intraluminal filling defect. Indeterminate large multi septated cystic lesion occupying the pancreatic tail, with imaging - - - Plan for Endoscopic ultrasound as outpatient basis per GI and follow-up with Dr. Maurer. - Per Dr. Maurer, if no head issues, she would need a distal pancreatectomy with splenectomy, assuming continued absence of evidence for metastatic disease. If IPMN and involvement of head of pancreas, then a total pancreatectomy would be considered (difficult operation to recover from and post op course is challenging with brittle diabetes). Would likely have her gallbladder out at the same time. No indication for acute surgical intervention. - Tumor markers CA 19-9 (32, normal < 37), CEA (1.9, normal < 5), as well as CA 125 (14.6, normal < 35) are all within normal limits - CT chest showed no suspicious pulmonary nodules. Bibasilar atelectasis left being more prominent. Cardiomegaly. Scattered aortic vascular calcifications. Mild diffuse enlargement of the thyroid gland right lobe being more prominent. No discrete thyroid nodules by CT. # Right adnexal cyst on CT, however US pelvis demonstrates no adnexal masses. CA 125 normal. With a immunology specialist, I explained to the patient that we are in the process of working up the pancreatic mass. I did confirm with the immunology specialist that the patient would not want to know her diagnosis and that she wants her family to make decisions on her behalf. Will continue to follow Problems: Consultation Date/Type/Reason Admit Date/Time Sep 18, 2016 at 20:50 Initial Consult Date 09/19/16 Type of Consultation: Oncology Referring Provider: PITO LEE 24 HR Interval Summary Free Text/Dictation Patient discharged home. Exam/Review of Systems Vital Signs Vitals Vital Signs Date Time Temp Pulse Resp B/P Pulse Ox O2 Delivery O2 Flow Rate FiO2 09/21/16 15:47 98.2 60 20 96/62 92 Room Air Intake and Output 09/20/16 09/20/16 09/21/16 14:59 22:59 06:59 Intake Total 520 ml 300 ml Balance 520 ml 300 ml Exam Constitutional: alert, oriented Psych: no complaints Head: normocephalic Neck: supple Respiratory: clear to auscultation Cardiovascular: regular rate and rhythm Gastrointestinal: non-tender, soft Musculoskeletal: nl extremities to inspection Neurological: RESIDENTIAL WORKER II-XII intact Results Result Diagram: 09/20/16 0433 09/20/16 0436 Results 24 hrs Laboratory Tests Test 09/20/16 17:21 09/20/16 21:40 09/21/16 07:41 09/21/16 11:32 Bedside Glucose 85 110 101 108 Medications Medications Current Medications Ondansetron HCl (Zofran Inj) 4 mg Q6H PRN IV NAUSEA AND/OR VOMITING Last administered on 09/20/16t 04:39; Admin Dose 4 MG; Start 09/19/16 at 01:00 Acetaminophen (Tylenol Tab) 650 mg Q6H PRN PO PAIN LEVEL 1-3 OR FEVER; Start at 01:00 Oxycodone/ Acetaminophen (Percocet (5/ 325)) 1 tab Q6H PRN PO MODERATE PAIN LEVEL 4-6 Last administered on 09/21/16 04:33; Admin Dose 1 TAB; Start at 01:00 Morphine Sulfate (morphine) 3 mg Q4H PRN IV SEVERE PAIN LEVEL 7-10 Last administered on 09/20/16 04:46; Admin Dose 3 MG; Start 09/19/16 at 01:00 Magnesium Hydroxide (Milk Of Mag) 30 ml DAILY PRN PO CONSTIPATION; Start at 01:00 Enoxaparin Sodium (Lovenox) 40 mg DAILY SC Last administered on 09/21/16 09:32 ; Admin Dose 40 MG; Start 09/19/16 at 09:00 Aspirin (Halfprin) 81 mg DAILY PO Last administered on 09/21/16 08:37; Admin Dose 81 MG; Start 09/19/16 at 09:00 Insulin Glargine (Lantus) 10 unit DAILY@08 SC Last administered on 09/21/16 08 :39; Admin Dose 10 UNIT; Start 09/19/16 at 08:00 Diagnostic Test (Pha) (Accu-Chek) 1 ea 02 XX ; Start 09/19/16 at 02:00 Atorvastatin Calcium (Lipitor) 10 mg DAILY@21 PO Last administered on 21:41; Admin Dose 10 MG; Start 09/19/16 at 21:00 Benazepril HCl (Lotensin) 20 mg DAILY PO Last administered on 09/21/16 08:37; Admin Dose 20 MG; Start 09/19/16 at 09:00 Miscellaneous Information 1 ea NOTE XX ; Start 09/19/16 at 07:00 Glucose (Glutose) 15 gm Q15M PRN PO DECREASED GLUCOSE; Start 09/19/16 at 07:00 Glucose (Glutose) 22.5 gm Q15M PRN PO DECREASED GLUCOSE; Start 09/19/16 at 07: 00 Dextrose (D50w Syringe) 25 ml Q15M PRN IV DECREASED GLUCOSE; Start 09/19/16 at 07:00 Dextrose (D50w Syringe) 50 ml Q15M PRN IV DECREASED GLUCOSE; Start 09/19/16 at 07:00 Glucagon (Glucagen) 1 mg Q15M PRN IM DECREASED GLUCOSE; Start 09/19/16 at 07:00 Glucose (Glutose) 15 gm Q15M PRN BUCCAL DECREASED GLUCOSE; Start 09/19/16 at 07 :00 TOSANJANA MD Sep 21, 2016 16:05
--- NOTE | 2016-09-21 16:05 | PDOCDIS ---
Discharge Instructions CONDITION Patient Condition: Good HOME CARE INSTRUCTIONS: Special Diet: carb control diet ACTIVITY: Activity Restrictions: No Restrictions FOLLOW UP/APPOINTMENTS Appointments F/U WITH DR DELIA BURNS IN HIS CLINIC INDICATED PITO LEE Sep 21, 2016 16:05
[2016-09-21] MEDS ORDERED: Oxycodone/Acetamin (5/325) PO (16:06)
--- NOTE | 2016-09-21 19:20 | DS ---
DATE OF ADMISSION: 09/18/2016 DATE OF DISCHARGE: 09/21/2016 DISCHARGE DIAGNOSES: 1. Likely pancreatic cancer. The patient to follow with Dr. Maurer for endoscopic ultrasound as an outpatient. 2. Abdominal pain secondary to above. Discharge with Percocet. 3. History of hypertension. Continue home medications. 4. History of newly diagnosed diabetes. Continue home medications. HOSPITAL COURSE: The patient is a 70-year-old with history of newly diagnosed diabetes. She presen ts with abdominal pain. She had abdominopelvic CT that showed a 4 x 3.2 cm mass in distal body and tail of the pancreas. Pancreatic neoplasm was suspected. 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 The patient was seen by Oncology as well as Dr. Maurer of Surgery and Dr. Burris of GI. The patient was felt to need an endoscopic ultrasound, which would be done as an outpatient. Dr. Maurer's clinic did arrange for patient to follow up. T he patient was cleared for discharge by Surgery and GI. On the day of discharge, the patient's mackenzie l signs, labs, physical exam were stable. She had no acute complaints. Questions answered. CONDITION ON DISCHARGE: Stable. DISPOSITION: To home. MEDICATIONS: The patient was given a prescription for Percocet 5/325 one tablet p.o. q.4 hours p.r. n. for pain. The patient is to continue her other home medications. FOLLOWUP: The patient to follow up with her PCP in 1 to [address] Mark Maurer as sched uled. Greater than 30 minutes was spent coordinating discharge of patient. Dictated By: PITO LEE MD BS/NTS Conf#: [id number] DID#: [id number]
== END 2016-09-21 18:00 | disposition home or self-care (01) | DRG 436 ==
LOC: E/R 13:03 → MS1 20:50
PROVIDERS: ADMIT Internal Medicine; ATTEND Internal Medicine
DX: C25.2 Malignant neoplasm of tail of pancreas (principal); J98.11 Atelectasis; K76.0 Fatty (change of) liver, not elsewhere classified; K86.89 Other specified diseases of pancreas; K83.8 Other specified diseases of biliary tract; E11.9 Type 2 diabetes mellitus without complications; M47.817 Spondylosis without myelopathy or radiculopathy, lumbosacral region; M47.814 Spondylosis without myelopathy or radiculopathy, thoracic region; R10.11 Right upper quadrant pain; Z79.84 Long term (current) use of oral hypoglycemic drugs; E78.5 Hyperlipidemia, unspecified; I10 Essential (primary) hypertension; Z79.82 Long term (current) use of aspirin
CPT/HCPCS: 71250; 74177; 74181; 76705; 76856; 78226; 80048; 80053; 82150; 82378; 82962; 83036; 83690; 83735; 84100; 84484; 85025; 85610; 85730; 86301; 86304; 93005; 96374; 96375; 96376; A9537; J1650; J1815; J2270; J2405; J7030; Q9967

== ENCOUNTER 2017-04-09 07:52 | Day surgery (SDC) | payer OTHER ==
[2017-04-09] VITALS (14 sets, daily range): BP systolic 100–154; BP diastolic 63–90; PULSE 70–86; RESP 18–21; Ht 160 cm; Wt 74.9 kg
[~2017-04-09] VITALS: Ht 160 cm; Wt 74.9 kg
[~2017-04-09 07:52] MED LIST: ASPI-664 PO; DEXAMETHASONE 4 MG/ML 1 ML INJ ONE; FENTAnyl 50 MCG/ML VIAL ONE; FOSI20TA PO; GLYCOPYRROLATE 0.4 MG INJ ONE; LIDOCAINE 2% (SDV) 5 ML INJ ONE; METF500T4 PO; MIDAZOLAM 1 MG/ML 2 ML INJ ONE; NEOSTIGMINE 3 MG/3 ML SYRINGE ONE; ONDANSETRON 4 MG INJ ONE; Oxycodone/Acetamin (5/325) PO; PROPOFOL 200 MG INJ ONE; ROCURONIUM 50 MG INJ ONE; SIMV20TA2 PO
[2017-04-09] MEDS ORDERED: IOHEXOL 300MG/ML 30 ML BTL ONE (09:36)
[2017-04-09] MEDS ORDERED: SUCCINYLCHOLINE CHLORIDE 100 MG/5 ML SYG IV ONE (09:59)
[2017-04-09] MEDS ORDERED: INDOMETHACIN 50 MG SUPP PR ONE ×2 (10:10→10:30)
[2017-04-09] MEDS ORDERED: LABETALOL HCL 20MG INJ ONE (10:32)
[2017-04-09] MEDS ORDERED: hydrALAzine 20 MG INJ ONE (10:33)
[2017-04-09] MEDS ORDERED: SUGAMMADEX SODIUM 200 MG/2 ML VIAL IV ONE (11:56)
--- NOTE | 2017-04-09 14:35 | OPR ---
Date/Time of Note Date/Time of Note DATE: 04/09/17 TIME: 14:30 Operative Report Procedure Date: Apr 09, 2017 Preoperative Diagnosis dilated cbd pancreatic cystic lesion in tail of pancreas Postoperative Diagnosis abn tail of pancreas brushing done stent placed in to miller duct Operation/Procedure Performed ercp Surgeon see signature line Route Sales Person none Anesthesia Type: general Anesthesiologist: ARTEM GARCIA MD Estimated Blood Loss: none Transfusion none Specimen pancreatic fluid miller duct brushing Grafts/Implants none Tubes/Drains miller stent Complications none Pt Condition Post Procedure: stable Disposition: PACU Indications pancreatic cystic lesion in tail Procedure Description ercp done sphincterotomy done 'fluid from miller duct obtained brushing duct obtained miller duct stent placed GAURI SPEAR MD Apr 09, 2017 14:35
--- NOTE | 2017-04-10 03:21 | GILP ---
DATE OF PROCEDURE: PROCEDURE: ERCP. PREOPERATIVE DIAGNOSIS: Patient presenting with history of abdominal pain. CAT scan of the abdomen shows evidence of a cystic lesion in the tail of the pancreas. Rule out malignancy of the cystic l esion. POSTOPERATIVE DIAGNOSIS: There is evidence of a narrowing of the distal pancreatic duct with irregu larity of the duct, and this is consistent with a mass type of lesion. DESCRIPTION OF PROCEDURE: After the informed written consent was obtained, the patient was intubate d by anesthesiologist, Dr. Pinzon. While the patient was in prone position, Olympus video side-view ing duodenoscope was inserted into the oropharynx, then into the esophagus and then stomach and then into the duodenum. Ampulla was located in normal location with normal morphology. At this time, b y using the Dreamtome, cannulation of the pancreatic duct was performed. The pancreatic duct showed evidence of a tortuosity. There was evidence of a loop-like appearance of the pancreatic duct note d about 2 cm above the ampullary opening, and the distal pancreatic duct appeared to show evidence o f irregularity and narrowing. This is consistent with some kind of a neoplastic process. At this t yoon, the guidewire was inserted into the pancreatic duct with some manipulation. The guidewire was passed through the loop of the pancreatic duct and advanced to the tail of the pancreatic duct. At this time, sphincterotomy was performed, about 4 mm cut was made of the sphincter of the pancreatic duct. Following this, fluid was aspirated from the pancreatic duct, sent for cytology. At this venus e, brush was inserted into the pancreatic duct over the guidewire, up to the tail of the pancreatic duct and brushing was performed a few times. [place] was retrieved. At this time, I elected to put a stent into the pancreatic duct. A 5-Estonian 10 cm long stent was not available and hence I elected to put a 5-Estonian and 7 cm long straight pancreatic duct stent, was put over the guidewire into the pancreatic duct. A couple of attempts were made to cannulate the common bile duct, it was not possi ble because this area of the ampulla was occupied by the stent and it made it difficult to get into the common bile duct; however, at this time, scope was withdrawn and the procedure was terminated. PLAN: Recommend wait for the cytology results of the pancreatic duct. Dictated By: GAURI SPEAR MD NC/NTS Conf#: [id number] DID#: [id number]
--- NOTE | 2017-04-10 21:45 | RADRPT ---
Vent Rate: 69 bpm RR Interval: 0 msec DE Interval: 152 msec QRS Duration: 86 msec QT Interval: 414 msec QTC Interval: 443 msec P-R-T [place]: 47 - -76 - 11 degrees Normal sinus rhythm Left axis deviation Cannot rule out Anterior infarct , age undetermined Abnormal ECG Electronically Signed By: Jaquan Piedra [id number]
== END 2017-04-09 13:44 | disposition home or self-care (01) ==
LOC: SDS 07:52
PROVIDERS: ATTEND Internal Medicine Gastroenterology
DX: K86.2 Cyst of pancreas (principal); I10 Essential (primary) hypertension; E11.9 Type 2 diabetes mellitus without complications
CPT/HCPCS: 43260; 82962; 93005; C2617; J0360; J1100; J2250; J2405; J2710; J3010; Q9967; Z7512; Z7610

== ENCOUNTER 2017-04-11 09:33 | Inpatient (IN) | payer OTHER ==
[~2017-04-11] VITALS: Ht 160 cm; Wt 74.4 kg
[~2017-04-11 09:33] MED LIST changes: -DEXAMETHASONE 4 MG/ML 1 ML INJ ONE; -FENTAnyl 50 MCG/ML VIAL ONE; -GLYCOPYRROLATE 0.4 MG INJ ONE; -LIDOCAINE 2% (SDV) 5 ML INJ ONE; -METF500T4 PO; -MIDAZOLAM 1 MG/ML 2 ML INJ ONE; -NEOSTIGMINE 3 MG/3 ML SYRINGE ONE; -ONDANSETRON 4 MG INJ ONE; -Oxycodone/Acetamin (5/325) PO; -PROPOFOL 200 MG INJ ONE; -ROCURONIUM 50 MG INJ ONE
[2017-04-11] MEDS ORDERED: SOD CHLORIDE 0.9% 500 ML IV STA (11:45)
[2017-04-11] MEDS ORDERED: ONDANSETRON 4 MG INJ IV STA (11:45)
[2017-04-11 12:12] LABS: ABNORMAL IP MESSAGE 1; BASOPHIL # 0.1 10^3/ul (0.0-0.1); BASOPHILS % 0.3 % (0.0-2.0); HEMATOCRIT 48.4 % (37.0-47.0); HEMOGLOBIN 16.4 g/dl (12.0-16.0); LYMPHOCYTES # 1.2 10^3/ul (0.8-2.9); LYMPHOCYTES % 5.4 % (15.0-51.0); MEAN CORPUSCULAR HEMOGLOBIN 28.6 pg (29.0-33.0); MEAN CORPUSCULAR HGB CONC 33.9 g/dl (32.0-37.0); MEAN CORPUSCULAR VOLUME 84.5 fl (82.0-101.0); MEAN PLATELET VOLUME 8.7 fl (7.4-10.4); MONOCYTE # 1.5 10^3/ul (0.3-0.9); MONOCYTES % 6.7 % (0.0-11.0); NEUTROPHIL # 19.9 10^3/ul (1.6-7.5); NEUTROPHILS % 86.9 % (39.0-77.0); PLATELET COUNT 298 10^3/UL (140-415); RED BLOOD COUNT 5.73 10^6/ul (4.20-5.40); RED CELL DISTRIBUTION WIDTH 13.5 % (11.5-14.5); WHITE BLOOD COUNT 22.9 10^3/ul (4.8-10.8)
[2017-04-11 12:16] LABS: POSITIVE DIFF @See below
[2017-04-11 12:32] LABS: ALBUMIN 4.8 g/dl (3.3-4.9); ALBUMIN/GLOBULIN RATIO 1.17; BILIRUBIN,INDIRECT 1.2 mg/dl (0-1.1); BILIRUBIN,TOTAL 1.2 mg/dl (0.2-1.3); CREATININE 0.63 mg/dl (0.44-1.00); POTASSIUM 3.9 mmol/L (3.5-5.1); TOTAL PROTEIN 8.9 g/dl (6.1-8.1)
[2017-04-11 12:37] LABS: ADD UMIC YES; UR ASCORBIC ACID NEGATIVE (NEGATIVE); UR BILIRUBIN (Dip) NEGATIVE (NEGATIVE); UR BLOOD (Dip) NEGATIVE (NEGATIVE); UR CLARITY SLIGHTLY CLOUDY (CLEAR); UR COLOR AMBER (YELLOW); UR GLUCOSE (Dip) 1+ mg/dL (NEGATIVE); UR KETONES (Dip) NEGATIVE (NEGATIVE); UR LEUKOCYTE ESTERASE (Dip) NEGATIVE Leu/ul (NEGATIVE); UR MUCUS MANY /HPF (NONE SEEN); UR NITRITE (Dip) NEGATIVE (NEGATIVE); UR RBC 3 /HPF (0-5); UR SPECIFIC GRAVITY (Dip) 1.028 (1.003-1.030); UR SQUAMOUS EPITHELIAL CELL FEW /HPF (FEW); UR TOTAL PROTEIN (Dip) 2+ mg/dl (NEGATIVE); UR UROBILINOGEN (Dip) NEGATIVE (NEGATIVE)
[2017-04-11] MEDS ORDERED: SOD CHLORIDE 0.9% 100 ML ONE (13:44)
[2017-04-11] MEDS ORDERED: IOHEXOL 300MG/ML 150 ML BTL ONE (13:44)
--- NOTE | 2017-04-11 14:19 | RADRPT ---
PROCEDURE: CT Abdomen and Pelvis with contrast. CLINICAL INDICATION: Abdomen and pelvis pain. TECHNIQUE: CT scan of the abdomen and pelvis with contrast was performed. The patient was scanned following the uncomplicated intravenous administration of 100 cc of Omnipaque-300. Coronal and sag ittal reformatted images were obtained from the axial source images. Images were reviewed on a high- resolution PACS workstation. Total exam DLP is 1000.48 mGy-cm. CTDIvol is 16.07 mGy. One or more of the following dose reduction techniques were used: Automated exposure control, adjustment of the mA and/or kV according to patient size, use of iterative reconstruction technique. DICOM images are available. COMPARISON: MRI of the abdomen dated 09/20/2016 which demonstrated a multi septated cystic lesion in the tail of the pancreas suggestive of a mucinous cystic neoplasm. FINDINGS: There is mild atelectasis at both lung bases posteriorly. The lung bases are otherwise normal. There is no pleural effusion or pericardial effusion. The heart is mildly enlarged. The liver is normal in size and diffusely decreased attenuation consistent with fatty metamorphosis. There is no focal hepatic lesion. The gallbladder and bile ducts are normal. The spleen is normal in size. There is no focal splenic lesion. Both adrenals are normal with no enlargement or mass. There is a low attenuation mass in the tail of the pancreas measuring 3.9 x 2.7 cm. There are thin e nhancing septations. There is extensive surrounding mesenteric edema and there is a small amount of free fluid in the left anterior pararenal space and the left paracolic gutter. The pancreas Scratch and there is a stent in the pancreatic duct extending into the duodenum. Both kidneys demonstrate normal contrast enhancement. There is no renal mass or hydronephrosis. The abdominal aorta is not dilated. There is calcification in the aorta consistent with atherosclero sis. There is no retroperitoneal lymphadenopathy or mass. There is no pelvic lymphadenopathy or mass. The bladder and distal ureters are normal. The periappendiceal region is unremarkable with no evidence of appendicitis. The bowel and mesentery are normal. There is no free fluid or free gas. There are degenerative changes of the spine. The osseous structures are otherwise unremarkable with no fracture or lytic lesion. IMPRESSION: 1. Mild atelectasis at the lung bases posteriorly. 2. Mild cardiomegaly. 3. Fatty metamorphosis of the liver. No focal hepatic lesion. 4. Low attenuation mass in the tail of the pancreas measuring 3.9 x 2.7 cm. There are associated th in enhancing septations and surrounding mesenteric edema and free fluid. The findings may be due to mucinous cystic neoplasm as indicated previously. Surrounding edema and free fluid may indicate pse udocyst with pancreatitis. Correlation with endoscopic ultrasound should be considered. RPTAT: QQ .Maico Broussard MD, MD Date Time Electronically viewed and signed by .Maico Broussard MD, on 04/11/2017 14:19 .R/
--- NOTE | 2017-04-11 14:27 | ERD ---
ER Documentation Chief Complaint Chief Complaint ABD PAIN WITH NAUSEA AND VOMITING HPI This is a 71-year-old female with a recent diagnosis of pancreatic cancer for which she had an ERCP and stenting completed last week who is now presenting with abdominal pain, nausea and vomiting. The patient reports that she has had abdominal pain since the procedure. It is been getting progressively worse over the last several days. She has had a decreased appetite because she has felt nauseated and has needed to vomit each time she tries to eat or drink anything. Her vomit is nonbilious and nonbloody. She describes it as mostly clear and mucousy. The patient has felt ill, but she does not endorse fevers. She has had intermittent chills. She does not endorse diarrhea or changes to bowel movements urination. The patient has had no headache or vision changes. The patient does not endorse neck or back pain. She does describe a mild sore throat since the procedure, which is expected. The patient denies lightheadedness or dizziness. The patient has had no chest pain or shortness of breath or trouble breathing. The patient has had no focal deficits. The patient has had no weakness or numbness or tingling to the face or extremities. ROS All systems reviewed and are negative except as per history of present illness. Medications Home Meds Reported Medications Aspirin* (Aspirin* EC) 81 Mg Tablet.dr, 81 MG PO DAILY WITH FOOD, TAB 09/18/16 Simvastatin (Simvastatin) 20 Mg Tablet, 20 MG PO QHS for HIGH CHOLESTEROL, #30 TAB 09/18/16 Fosinopril Sodium (Fosinopril Sodium) 20 Mg Tablet, 20 MG PO DAILY for BLOOD PRESSURE and KIDNEYS, TAB 09/18/16 Discontinued Reported Medications Metformin* (Glucophage*) 500 Mg Tab, 500 MG PO WITH EVENING MEALS, #30 TAB 09/18/16 Discontinued Scripts [Oxycodone/Acetamin (5/325)] 1 TAB TAB No Conflict Check, 1 TAB PO Q4 Y for MODERATE PAIN LEVEL 4-6, #40 Prov:PITO LEE 09/21/16 Allergies Allergies: Coded Allergies: No Known Allergy (Unverified , 04/09/17) PMhx/Soc History of Surgery: Yes (Gynecological surgery, ERCP) Anesthesia Reaction: No Hx Neurological Disorder: No Hx Respiratory Disorders: No Hx Cardiac Disorders: Yes (htn,high cholesterol. ) Hx Psychiatric Problems: No Hx Miscellaneous Medical Probl: Yes (Acid reflux, Dislipidemia, DM, Pancreatic Ca) Hx Alcohol Use: No Hx Substance Use: No Hx Tobacco Use: No Smoking Status: Never smoker Physical Exam Vitals Vital Signs Date Time Temp Pulse Resp B/P Pulse Ox O2 Delivery O2 Flow Rate FiO2 04/11/17 09:35 99.2 92 17 132/82 92 Physical Exam Const: No apparent distress, well-developed, well-nourished Head: Atraumatic Eyes: Normal Conjunctiva. Extraocular movements intact. ENT: Normal External Ears, Nose and Mouth. Neck: Full range of motion. ~ No meningismus. Resp: Clear to auscultation bilaterally Cardio: Regular rate and rhythm, no murmurs Abd: Soft, non distended, general tenderness LUE worse than other areas, voluntary rebound. Normal bowel sounds Skin: No petechiae or rashes Back: No midline or flank tenderness Ext: No cyanosis, or edema Neur: Awake and alert, oriented 4. Cranial nerves intact. No facial droop. Normal strength and sensation in all extremities. Coordination with finger to nose normal. Psych: Normal Mood and Affect Result Diagram: 04/11/17 1200 04/11/17 1200 Results 24 hrs Laboratory Tests Test 04/11/17 12:00 White Blood Count 22.910^3/ul Red Blood Count 5.7310^6/ul Hemoglobin 16.4g/dl Hematocrit 48.4% Mean Corpuscular Volume 84.5fl Mean Corpuscular Hemoglobin 28.6pg Mean Corpuscular Hemoglobin Concent 33.9g/dl Red Cell Distribution Width 13.5% Platelet Count 72607^3/UL Mean Platelet Volume 8.7fl Neutrophils % 86.9% Lymphocytes % 5.4% Monocytes % 6.7% Eosinophils % 0.0% Basophils % 0.3% Nucleated Red Blood Cells % 0.0/100WBC Neutrophils # 19.910^3/ul Lymphocytes # 1.210^3/ul Monocytes # 1.510^3/ul Eosinophils # 0.010^3/ul Basophils # 0.110^3/ul Nucleated Red Blood Cells # 0.010^3/ul Urine Color MICHAEL Urine Clarity SLIGHTLY CLOUDY Urine pH 5.0 Urine Specific [place] 1.028 Urine Ketones NEGATIVEmg/dL Urine Nitrite NEGATIVEmg/dL Urine Bilirubin NEGATIVEmg/dL Urine Urobilinogen NEGATIVEmg/dL Urine Leukocyte Esterase NEGATIVELeu/ul Urine Microscopic RBC 3/HPF Urine Microscopic WBC 3/HPF Urine Squamous Epithelial Cells FEW/HPF Urine Mucus MANY/HPF Urine Hemoglobin NEGATIVEmg/dL Urine Glucose 1+mg/dL Urine Total Protein 2+mg/dl Sodium Level 140mmol/L Potassium Level 3.9mmol/L Chloride Level 98mmol/L Carbon Dioxide Level 27mmol/L Anion Gap 19 Blood Urea Nitrogen 19mg/dl Creatinine 0.63mg/dl Glucose Level 171mg/dl Calcium Level 9.0mg/dl Total Bilirubin 1.2mg/dl Direct Bilirubin 0.00mg/dl Indirect Bilirubin 1.2mg/dl Aspartate Amino Transf (AST/SGOT) 42IU/L Alanine Aminotransferase (ALT/SGPT) 20IU/L Alkaline Phosphatase 109IU/L Total Protein 8.9g/dl Albumin 4.8g/dl Globulin 4.10g/dl Albumin/Globulin Ratio 1.17 Lipase 957U/L Current Medications Medications (Trade) Dose Ordered Sig/Marti Route PRN Reason Start Time Stop Time Status Last Admin Dose Admin Sodium Chloride (NS) 500 ml @ 500 mls/hr Q1H STAT IV 04/11/17 11:45 04/11/17 12:44 DC 04/11/17 12:21 Ondansetron HCl (Zofran Inj) 4 mg ONCE STAT IV 04/11/17 11:45 04/11/17 11:47 DC 04/11/17 12:21 IV Flush 10 ml 10 ml STK-MED ONCE .ROUTE 04/11/17 13:44 04/11/17 13:45 DC 04/11/17 14:09 Sodium Chloride (NS) 100 ml @ ud STK-MED ONCE .ROUTE 04/11/17 13:44 04/11/17 13:45 DC 04/11/17 14:09 Iohexol (Omnipaque 300mg/ ml) 150 ml STK-MED ONCE .ROUTE 04/11/17 13:44 04/11/17 13:45 DC 04/11/17 14:09 Procedures/[facility] MDM The patient's presentation warrants further investigation. The patient's presentation is concerning for post ERCP pancreatitis. Additionally, because there was a recent iatrogenic manipulation, we do have to be concerned about bowel perforation as well. Infection is also possible etiologies require further workup. LABS The patient's blood work was obtained and reviewed. The patient's CBC shows significant leukocytosis and left shift. The patient is afebrile but i am concerned of a possible systemic infection. The patient is not anemic today. In fact, she may be hemoconcentrated given her decreased oral intake. The patient's platelet count is unremarkable. The patient's CMP shows no signs of metabolic or electrolyte emergency. The patient has normal renal and hepatic function testing. Her lipase is greater than three times the upper limit of normal, concerning for pancreatitis. Her LDH is also quite elevated. IMAGING CT abd/pelvis with contrast IMPRESSION: 1. Mild atelectasis at the lung bases posteriorly. 2. Mild cardiomegaly. 3. Fatty metamorphosis of the liver. No focal hepatic lesion. 4. Low attenuation mass in the tail of the pancreas measuring 3.9 x 2.7 cm. There are associated thin enhancing septations and surrounding mesenteric edema and free fluid. The findings may be due to mucinous cystic neoplasm as indicated previously. Surrounding edema and free fluid may indicate pseudocyst with pancreatitis. Correlation with endoscopic ultrasound should be considered. Electronically viewed and signed by .Maico Broussard MD, MD on 04/11/2017 14:19 TREATMENT/DISPOSITION Patient has findings concerning for poast ERCP pancreatitis with a question of pseudocyst formation on the CT scan. The patient was given IV fluids and medication for pain control and for nausea. The patient will also be given antibiotics to cover for an intraabdominal infection, Cipro and Flagyl. At this time, I feel that the patient requires admission for further evaluation and management. The patient will be admitted to Panel in accordance with the patient's insurance. The patient was accepted by Dr. Vicente at 14:36PM on April 11, 2017. Departure Diagnosis: Primary Impression: Pseudocyst of pancreas Additional Impressions: Acute pancreatitis Pancreatitis type: other Acute pancreatitis complication: unspecified Qualified Code: K85.80 - Other acute pancreatitis, unspecified complication status Status post endoscopic retrograde cholangiopancreatography Condition: NIRMAL Glaser MD Apr 11, 2017 14:27
[2017-04-11] MEDS ORDERED: ACETAMINOPHEN 325 MG TAB PO PRN (15:00)
[2017-04-11] MEDS ORDERED: ONDANSETRON 4 MG INJ IV PRN ×2 (15:00→21:00)
[2017-04-11] MEDS ORDERED: CIPROFLOXACIN 400MG/D5W 200 ML IVPB ONE (15:00)
[2017-04-11] MEDS ORDERED: metroNIDAZOLE 500 MG/NS (PMX) 100 ML IVPB ONE (15:00)
[2017-04-11] MEDS ORDERED: FENTAnyl 50 MCG/ML VIAL IV ONE (15:00)
[2017-04-11 16:12] VITALS: TEMP 98.8
--- NOTE | 2017-04-11 16:13 | HP ---
Date/Time of Note Date/Time of Note DATE: 04/11/17 TIME: 16:05 Assessment/Plan VTE Prophylaxis VTE Prophylaxis Intervention: LMWH Assessment/Plan Chief Complaint/Hosp Course 71 yo female with h/o pancreatic cyst s/p stent and biopsy two days ago, DMII, HTN who presents with post-ERCP pancreatitis Pancreatitis: - IV LR for volume expansion at 200 cc/hr for now - Pain control as needed Pancreatic cyst: - Management per Dr Farr DMII: - Basal/bolus insulin Will hold anithypertensives for now Problems: HPI/ROS Admit Date/Time Admit Date/Time Hx of Present Illness 71 yo female with DMII, pancreatitic cyst s/p recent stent and ductal brushing who presents with abdominal pain Patient has had abdominal pain since Apirl. CT imaging has shown pancreatic cyst. On Sunday, ERCP was performed with stent of duct and brushings taken ( benign on path). She says yesterday she started to develop abdominal pain that has only worsened prompting her to come to ED. Here found to have pancreatitis by labs and imaging. Given pain meds, started on fluids PMH/Family/Social Past Medical History Medical History: diabetes Past Surgical History Past Surgical Hx: no surgical history Social History Alcohol Use: none Smoking Status: Never smoker Drug Use: none Exam/Review of Systems Vital Signs Vitals Vital Signs Date Time Temp Pulse Resp B/P Pulse Ox O2 Delivery O2 Flow Rate FiO2 04/11/17 09:35 99.2 92 17 132/82 92 Exam Constitutional: alert, oriented, well developed Psych: nl mood/affect, no complaints Head: atraumatic, normocephalic Eyes: EOMI, PERRL, nl conjunctiva, nl lids, nl sclera ENMT: nl external ears & nose, nl lips & teeth, nl nasal mucosa & septum Neck: non-tender, supple Respiratory: clear to auscultation, normal air movement Cardiovascular: nl pulses, regular rate and rhythm Gastrointestinal: nl liver, spleen, non-tender, soft Musculoskeletal: nl extremities to inspection Extremities: normal pulses Neurological: [employer] II-XII intact, nl mental status, nl speech, nl strength Skin: nl turgor, No rash or lesions Lymph: nl lymph nodes Labs Result Diagram: 04/11/17 1200 04/11/17 1200 TEA HAMEED MD Apr 11, 2017 16:13
[2017-04-11] MEDS ORDERED: NACL 0.9% 3 ML SYG IV SCH (16:30)
[2017-04-11] MEDS ORDERED: morphine 2 MG INJ IV PRN (16:30)
[2017-04-11 16:48] VITALS: Ht 160 cm; Wt 74.4 kg
[2017-04-11 16:50] VITALS: BP 120/81; PULSE 83; RESP 18
[2017-04-11] MEDS: LACTATED RINGER'S 1,000 ML IV SCH ×2 (17:14→23:02)
[2017-04-11] MEDS ORDERED: INFLUENZA VIRUS VACCINE 0.5 ML (DISPENSING) IM* ONE (19:30)
[2017-04-11] MEDS ORDERED: METOCLOPRAMIDE 10 MG INJ ONE (20:57)
[2017-04-11] MEDS: HYDROmorphONE 1 MG/ML SYG IV PRN (21:00)
[2017-04-11] MEDS: METOCLOPRAMIDE 10 MG INJ IV PRN (21:06)
[2017-04-11 21:09] VITALS: BP 125/75; RESP 18
[2017-04-12] MEDS: LACTATED RINGER'S 1,000 ML IV SCH ×5 (02:30→21:16)
[2017-04-12] MEDS: HYDROmorphONE 1 MG/ML SYG IV PRN ×5 (02:38→21:15)
[2017-04-12 03:29] VITALS: BP 109/58; RESP 18
--- NOTE | 2017-04-12 04:14 | CONS ---
DATE OF ADMISSION: 04/11/2017 DATE OF CONSULTATION: TYPE OF CONSULTATION: Gastroenterology. Dear Dr. Bowden: Thank you for asking me to see Ms. Hearn in GI consultation. HISTORY OF PRESENT ILLNESS: As you know, the patient is a 71-year-old female who was seen by me in the office several weeks ago because of abdominal pain. CAT scan of the abdomen showed juarez dence of a possible mass in the ampullary area. Also, there is a cystic mass noted in the tail of t he pancreas. Hence, at this time she was brought to the [facility]. ERCP was per formed 2 days ago and the ERCP showed evidence of abnormal ductal stricture in the distal part of th e pancreatic duct. At that time, fluid was taken from the pancreatic duct and brushings of the panc reatic duct was performed. Upon talking to the pathology department, now was found that the fluid a nd cytology was negative for malignant cells. Now patient developed abdominal pain after the ERCP a fter she went home and she was brought to the hospital because of the persistent upper abdominal ajlen n with nausea, no vomiting, no GI bleeding, no fever, no jaundice. PAST MEDICAL HISTORY: Not significant. REVIEW OF SYSTEM: Positive for diabetes. PAST SURGICAL HISTORY: No surgical history. MEDICATIONS PRIOR TO THIS ADMISSION: Include 1. Fosinopril. 2. Simvastatin. 3. Aspirin. PHYSICAL EXAMINATION: GENERAL: The patient is a 71-year-old female who at this time appears well built, not in d istress. VITAL SIGNS: Shows temperature 98.1, pulse is 83. CARDIOVASCULAR: Normal heart sounds. RESPIRATORY: Normal breath sounds. ABDOMEN: Showed a soft abdomen with no palpable masses, no tenderness, no distention; however, has minimal epigastric discomfort as noted on examination. LABORATORY WORKUP: Shows that WBC count is 22,300, hemoglobin 16.4. The chemistry: Potassium 3.9, BUN is 19, creatinine 0.63, bilirubin 1.2, AST 42, ALT 20, alkaline phosphatase 109. LDH is 677. The CA 19-9 on 09/20/2016 showed evidence of 32.5. CA-125 is 14.6, still normal. CAT scan of the a bdomen at this time showed evidence of a mild pancreatitis in the distal area of the pancreas, thick duct. Definitely low attenuation mass is noted in the tail of the pancreas measuring 3.9 cm. CLINICAL IMPRESSION: 1. Patient presenting with abdominal pain. She seems to have suggestion of a post-ERCP pancreatit is. At this time, she has a cystic mass noted in the tail of the pancreas. PLAN: At this time, I recommend CT-guided biopsy of the tail of the pancreas and meanwhile continue symptomatic treatment with analgesics and antibiotics. Will get a hepatobiliary pancreatic surgery consultation. Dictated By: GAURI SPEAR MD NC/NTS Conf#: [id number] DID#: [id number] CC: TEA HAMEED MD; JOSE BOWDEN MD;*EndCC*
[2017-04-12 05:37] LABS: BASOPHILS % 0.2 % (0.0-2.0); HEMATOCRIT 40.3 % (37.0-47.0); HEMOGLOBIN 13.7 g/dl (12.0-16.0); LYMPHOCYTES # 1.2 10^3/ul (0.8-2.9); LYMPHOCYTES % 6.3 % (15.0-51.0); MEAN CORPUSCULAR VOLUME 85.2 fl (82.0-101.0); MEAN PLATELET VOLUME 8.7 fl (7.4-10.4); MONOCYTES % 5.5 % (0.0-11.0); NEUTROPHIL # 16.2 10^3/ul (1.6-7.5); NEUTROPHILS % 87.5 % (39.0-77.0); PLATELET COUNT 226 10^3/UL (140-415); RED BLOOD COUNT 4.73 10^6/ul (4.20-5.40); RED CELL DISTRIBUTION WIDTH 13.5 % (11.5-14.5); WHITE BLOOD COUNT 18.5 10^3/ul (4.8-10.8)
[2017-04-12] MEDS: METOCLOPRAMIDE 10 MG INJ IV PRN ×2 (05:45→21:16)
[2017-04-12 06:36] LABS: ALBUMIN 3.2 g/dl (3.3-4.9); ALBUMIN/GLOBULIN RATIO 0.96; BILIRUBIN,INDIRECT 0.9 mg/dl (0-1.1); BILIRUBIN,TOTAL 0.9 mg/dl (0.2-1.3); CALCIUM 8.3 mg/dl (8.4-10.2); CREATININE 0.58 mg/dl (0.44-1.00); TOTAL PROTEIN 6.5 g/dl (6.1-8.1)
[2017-04-12 06:40] LABS: POTASSIUM 2.7 mmol/L (3.5-5.1)
[2017-04-12] MEDS: POTASSIUM CHLORIDE 250 ML IVPB SCH ×3 (07:00→12:35)
[2017-04-12 07:59] VITALS: BP 109/67; RESP 18
[2017-04-12] MEDS: ENOXAPARIN 40 MG/0.4 ML SYG SC SCH (08:30)
--- NOTE | 2017-04-12 14:42 | PN ---
Date/Time of Note Date/Time of Note DATE: 04/12/17 TIME: 14:41 Assessment/Plan VTE Prophylaxis VTE Prophylaxis Intervention: LMWH Lines/Catheters IV [facility]ter Type (from [email or web address] Peripheral IV Assessment/Plan Chief Complaint/Hosp Course 71 yo female with h/o pancreatic cyst s/p stent and biopsy two days ago, DMII, HTN who presents with post-ERCP pancreatitis Pancreatitis: - IV LR for volume expansion at 200 cc/hr for now - Pain control as needed Pancreatic cyst: - Management per Dr Farr: IR biopsy tomorrow. Will involve surgery DMII: - Basal/bolus insulin PPx: lmwh Problems: Subjective 24 Hr Interval Summary Free Text/Dictation Still with abdominal pain, uncomfortable but decently controlled on current regimen Exam/Review of Systems Vital Signs Vitals Vital Signs Date Time Temp Pulse Resp B/P Pulse Ox O2 Delivery O2 Flow Rate FiO2 04/12/17 07:59 98.1 82 18 109/67 95 04/11/17 16:50 Room Air 04/11/17 16:12 2.0 Intake and Output 04/11/17 04/11/17 04/12/17 15:00 23:00 07:00 Intake Total 100 ml 1000 ml Balance 100 ml 1000 ml Exam Tenderness to abdominal palpation, no guarding, no rebound Results Result Diagram: 04/12/17 0513 04/12/17 0513 Results 24 hrs Laboratory Tests Test 04/11/17 14:55 04/12/17 05:13 Lactate Dehydrogenase 677 H White Blood Count 18.5 H Red Blood Count 4.73 Hemoglobin 13.7 Hematocrit 40.3 Mean Corpuscular Volume 85.2 Mean Corpuscular Hemoglobin 29.0 Mean Corpuscular Hemoglobin Concent 34.0 Red Cell Distribution Width 13.5 Platelet Count 226 # Mean Platelet Volume 8.7 Neutrophils % 87.5 H Lymphocytes % 6.3 L Monocytes % 5.5 Eosinophils % 0.0 Basophils % 0.2 Nucleated Red Blood Cells % 0.0 Neutrophils # 16.2 H Lymphocytes # 1.2 Monocytes # 1.0 H Eosinophils # 0.0 Basophils # 0.0 Nucleated Red Blood Cells # 0.0 Sodium Level 138 Potassium Level 2.7 *L Chloride Level 101 Carbon Dioxide Level 32 H Anion Gap 8 # Blood Urea Nitrogen 11 Creatinine 0.58 Glucose Level 136 Hemoglobin A1c 6.6 H Calcium Level 8.3 L Magnesium Level 2.0 Total Bilirubin 0.9 Direct Bilirubin 0.00 Indirect Bilirubin 0.9 Aspartate Amino Transf (AST/SGOT) 23 Alanine Aminotransferase (ALT/SGPT) 21 Alkaline Phosphatase 88 Total Protein 6.5 # Albumin 3.2 #L Globulin 3.30 H Albumin/Globulin Ratio 0.96 Medications Medications Current Medications Lactated Ringer's (Lr) 1,000 ml @ 200 mls/hr Q5H IV Last administered on 04/12 05:43; Admin Dose 200 MLS/HR; Start 04/11/17 at 16:30 Enoxaparin Sodium (Lovenox) 40 mg DAILY SC Last administered on 04/12/17 08: 30; Admin Dose 40 MG; Start 04/12/17 at 09:00 Hydromorphone HCl (Dilaudid) 1 mg Q3H PRN IV PAIN Last administered on 11:26; Admin Dose 1 MG; Start 04/11/17 at 18:00 Ondansetron HCl (Zofran Inj) 4 mg Q6H PRN IV NAUSEA AND/OR VOMITING Last administered on 04/12/17 02:38; Admin Dose 4 MG; Start 04/11/17 at 21:00 Metoclopramide HCl 10 mg 10 mg Q4H PRN IV NAUSEA AND/OR VOMITING Last administered on 04/12/17 05:45; Admin Dose 10 MG; Start 04/11/17 at 21:00 Potassium Chloride (KCl 40 MEQ/250 ML NS) 250 ml @ 62.5 mls/hr Q4H IVPB Last administered on 04/12/17 12:35; Admin Dose 62.5 MLS/HR; Start 04/12/17 at 07: 00; Stop 04/12/17 at 14:59 TEA HAMEED MD Apr 12, 2017 14:42
[2017-04-12 14:56] LABS: CALCIUM 7.9 mg/dl (8.4-10.2); CREATININE 0.59 mg/dl (0.44-1.00)
[2017-04-12 15:15] VITALS: BP 102/59; RESP 16
--- NOTE | 2017-04-12 18:26 | PN ---
DATE: 04/12/2017 The patient still has abdominal pain. The patient was admitted with pancreatitis. She had ERCP don e 2 days ago, which showed evidence of a mass in the tail of the pancreas, which is a cystic mass. At that time sphincterotomy was performed. A stent was placed into the pancreatic duct. The patien t admitted with abdominal pain, and she was found to have elevated amylase and lipase. Yesterday, lipase was 957, today is not done. PHYSICAL EXAMINATION: GENERAL: The patient is alert. VITAL SIGNS: Temperature 98.9, blood pressure is 102/59. CARDIOVASCULAR: Normal heart sounds. RESPIRATORY: Normal breath sounds. ABDOMEN: Showed minimal epigastric tenderness. CLINICAL IMPRESSION: Patient has a mass in the cystic mass in the tail of the pancreas. She has a stent in the pancreatic duct. Brushings and fluid from the pancreatic duct were negative for malign anastasia. PLAN: Discuss with Dr. Maurer, the pancreatic surgeon, who has agreed to see the patient. She will probably need a percutaneous biopsy of the pancreatic cystic lesion and then proceed further. Dictated By: GAURI JANE/DENILSON Conf#: [id number] DID#: [id number]
--- NOTE | 2017-04-12 18:29 | CONS ---
Date/Time of Note Date/Time of Note DATE: 04/12/17 TIME: 18:29 Assessment/Plan Assessment/Plan Additional Assessment/Plan [facility] INPATIENT CONSULTATION NOTE DATE OF SERVICE: 04/12/2017 PLACE OF SERVICE: [facility], 2nd floor [facility] ASSESSMENT AND PLAN: A very-pleasant 71-year-old lady with a few comorbidities presenting with a distal tail of the pancreas cystic lesion which appears to be either simple serous cyst versus mucinous cystadenoma. Unlikely to be and I PMN but that is in the differential. She also has mild elevation of the pancreatic duct without associated obvious stricture in the proximal duct or ampullary mass. Cytology has been negative. Her current abdominal pain is likely exacerbated by post ERCP pancreatitis and should get better. Most value based care in this situation is to arrange for the patient to have an endoscopic ultrasound evaluation of her pancreas. If there are concerning features of a mucinous cystadenoma, or other premalignant or malignant findings , and the patient could potentially undergo a distal pancreatectomy. I do not currently recommend percutaneous access of this cyst since we have ability to do endoscopic ultrasound evaluation. I explained all of the above to the patient and family and answered all questions. Patient and family appear to understand and agreed with plans. With above assessment, I've recommended the followin. Continue current cares with intravenous antimicrobial coverage for possible ascending cholangitis since the biliary system was accessed and treated for post ERCP pancreatitis 2. Discharge when medically stable 3. I will kindly ask my office to assist with arrangement for outpatient endoscopic ultrasound evaluation 4. Multidisciplinary tumor board presentation 5. Follow-up with me after above is done Thank you very much for having me involved in the care of this very pleasant patient and wonderful family. If you have any questions, please feel free to contact me at [phone]. Nature of presenting problem: High severity Please note that, given the extensive number of diagnoses or management options , the extensive amount and/or complexity of data needed to be reviewed, and high risk of complications and/or morbidity or mortality, this qualifies as high complexity type of decision-making. Disclaimers: 1. Inadvertent spelling and grammatical errors are likely due to electronic health record (EHR)/dictation software used and do not reflect on the quality of delivered patient care. 2. The electronic timestamp recorded on this note does not necessarily reflect the actual date and time of the visit or the service. 3. Portions of this note may have been created through electronic templates and computer algorithms that might bring in information either from the system or from other physicians and providers. Please note that such information may or may not contain errors, the occurrence of which are outside of my control. In general (but not always) this happens either in the beginning or at the end of the note. The portion of the note that I have created are generally done in 1 continuous block of text, flanked at the beginning and at the end by " ", and entered into one field in the EHR. 4. There may be other unanticipated errors in the note that are outside of my control. I can only attest to the portions of the note that I have created. Updated clinical summary: A very-pleasant 71-year-old lady with a few comorbidities presenting with a distal tail of the pancreas cystic lesion which appears to be either simple serous cyst versus mucinous cystadenoma. Comorbidities: 1. BMI 29.1 2. Possible fatty infiltration of the liver 3. Accessory splenule 4. Diastasis rectus with a small midline umbilical hernia containing only fat 5. 2.8 cm right adnexal cyst 6. Status post hysterectomy 7. Osteoarthritis of the thoracic and lumbosacral spine 8. Atherosclerotic vascular disease 9. Hemoglobin A1c 6.6 10. Albumin 3.2 after hydration 11. Diabetes mellitus type 2 12. Hypertension 13. Status post ERCP [facility] 04/09/2017 with pancreatic duct stenting. CONSULTATION REQUESTED BY: Brian Farr MD Dear Dr. Farr, Thank you very much for the opportunity to participate in the care of this very pleasant lady and her wonderful family. HISTORY OF PRESENT ILLNESS: The patient is a very pleasant 71-year-old lady with above-mentioned comorbidities who were kindly asked to consult regarding management of pancreatic cyst. Patient has had a known pancreatic cyst since at least August 2016. She was admitted due to abdominal pain after ERCP, but which also has been present since August 2016. Patient underwent an ERCP as mentioned above where stenting of pancreatic duct and brushings were done. Cytology was negative for malignancy. I was kindly asked to consult regarding further possible surgical management of this problem. Note that previously, there were concerns about possibility of an ampullary mass, but this was disproven with the ERCP. ERCP did show evidence of abnormal ductal stricture in the distal part of the pancreatic duct. Other notable findings on her workup during admission was an elevated white blood cell count of 22.3. CA-19- 9 in August 2016 was 32.5. CA 125 was 14.6. Still with mild to moderate abdominal pain. No n/v. No diarrhea or constipation. No other major complaints during my visit. ALLERGIES: NO KNOWN DRUG ALLERGIES MEDICATIONS Documented in the electronic records and reviewed by me. Please see the electronic records for details, as well as details for inpatient medications which were also reviewed by me. SOCIAL HISTORY: The patient lives with family.-Tob;-ETOH;-IVDU FAMILY HISTORY: Diabetes. There are no other significant medical, surgical or oncologic issues in the family as reported by the patient or reflected in the chart. REVIEW OF SYSTEMS: Other than mentioned above, there were no other pertinent positives or pertinent negatives in an otherwise complete 14 point review of systems. PHYSICAL EXAMINATION GENERAL: The patient appears to be a very pleasant lady of descent lying in bed, appearing stated age, and otherwise in no acute distress. BMI: 29.1 VITAL SIGNS: AVSS (please also see auto important data if available as well as the electronic records) HEENT: Normocephalic and atraumatic. Extraocular muscles and hearing are grossly intact bilaterally and symmetrically. Sclerae are nonicteric. Oral cavity is clear; oral mucosa appear to be pink and moist. Dentition: Fair to poor. NECK: Supple. There is no lymphadenopathy or JVD. There is no submental, submandibular or supraclavicular lymphadenopathy. CHEST: Rises symmetrically with each breath; patient is breathing comfortably. There are no audible wheezes, rales or rhonchi on the gross exam. HEART: Pulse is regular and palpable on the right wrist. Capillary refill is normal. Carotid pulses are palpable bilaterally and symmetrically in the neck. EXTREMITIES: Lower extremities contain no pitting edema around the ankles bilaterally and symmetrically. ABDOMEN: Abdomen is soft, nontender and nondistended. No evidence of ascites, organomegaly, caput medusae, engorged subcutaneous veins, or other abnormalities. There are no peritoneal signs or guarding. SKIN: Appears to be pink and feels warm to touch. NEUROLOGIC: Awake, alert, and follows commands appropriately. LABORATORY DATA: See below IMAGING: See electronic chart. Please note that I've personally reviewed all pertinent available images and I agree in general with their overall reported findings. CT scan abdomen and pelvis [facility] 04/11/2017 IMPRESSION: 1. Mild atelectasis at the lung bases posteriorly. 2. Mild cardiomegaly. 3. Fatty metamorphosis of the liver. No focal hepatic lesion. 4. Low attenuation mass in the tail of the pancreas measuring 3.9 x 2.7 cm. There are associated thin enhancing septations and surrounding mesenteric edema and free fluid. The findings may be due to mucinous cystic neoplasm as indicated previously. Surrounding edema and free fluid may indicate pseudocyst with pancreatitis. Correlation with endoscopic ultrasound should be considered. MRCP [facility] 09/20/2016 IMPRESSION: Indeterminate extrahepatic biliary dilatation without choledocholithiasis or intraluminal filling defect. If correlation with LFTs suggest cholestasis, consider ERCP as an ampullary lesion/stenosis would be difficult to exclude by MRCP. 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. Consider correlation with endoscopic ultrasound CT scan abdomen and pelvis [facility] 09/18/2016 IMPRESSION: 1. 4 cm by 3.2 x 2.9 cm mass in the distal body and tail of the pancreas. Pancreatic neoplasm is suspected. 2. Dilatation of the distal pancreatic duct and distal common bile duct. MRCP or ERCP might be considered for further evaluation to evaluate for pancreatic duct stenosis or ampullary tumor. No pancreatic mass or evidence of choledocholithiasis. 3. Fatty infiltration of the liver with no hepatic metastasis. No intrahepatic biliary ductal dilatation. 4. Accessory splenule. 5. Ground-glass and plate-like densities in the right left lower lobes consistent with atelectasis. 6. Diastasis rectus with a small midline umbilical hernia containing only fat. 7. 2.8 cm right adnexal cyst. This can be further evaluated with ultrasound if clinically indicated. A right ovarian cyst, paraovarian cyst or mesenteric cyst might present this fashion. 8. Status post hysterectomy. 9. Osteoarthritis of the thoracic and lumbosacral spine. 10. Atherosclerotic vascular disease. Consultation Date/Type/Reason Admit Date/Time Psychological: nl mood/affect, no complaints Past Medical History Medical History: diabetes Past Surgical History Past Surgical Hx: no surgical history Social History Alcohol Use: none Smoking Status: Unknown if ever smoked Drug Use: none Exam/Review of Systems Vital Signs Vitals Vital Signs Date Time Temp Pulse Resp B/P Pulse Ox O2 Delivery O2 Flow Rate FiO2 04/12/17 15:15 98.9 71 16 102/59 93 04/11/17 16:50 Room Air 04/11/17 16:12 2.0 Intake and Output 04/11/17 04/11/17 04/12/17 15:00 23:00 07:00 Intake Total 100 ml 1000 ml Balance 100 ml 1000 ml Results Result Diagram: 04/12/17 0513 04/12/17 1419 Results 24 hrs Laboratory Tests Test 04/12/17 05:13 04/12/17 14:19 White Blood Count 18.5 H Red Blood Count 4.73 Hemoglobin 13.7 Hematocrit 40.3 Mean Corpuscular Volume 85.2 Mean Corpuscular Hemoglobin 29.0 Mean Corpuscular Hemoglobin Concent 34.0 Red Cell Distribution Width 13.5 Platelet Count 226 # Mean Platelet Volume 8.7 Neutrophils % 87.5 H Lymphocytes % 6.3 L Monocytes % 5.5 Eosinophils % 0.0 Basophils % 0.2 Nucleated Red Blood Cells % 0.0 Neutrophils # 16.2 H Lymphocytes # 1.2 Monocytes # 1.0 H Eosinophils # 0.0 Basophils # 0.0 Nucleated Red Blood Cells # 0.0 Sodium Level 138 139 Potassium Level 2.7 *L 4.0 Chloride Level 101 102 Carbon Dioxide Level 32 H 29 Anion Gap 8 # 12 Blood Urea Nitrogen 11 11 Creatinine 0.58 0.59 Glucose Level 136 121 Hemoglobin A1c 6.6 H Calcium Level 8.3 L 7.9 L Magnesium Level 2.0 Total Bilirubin 0.9 Direct Bilirubin 0.00 Indirect Bilirubin 0.9 Aspartate Amino Transf (AST/SGOT) 23 Alanine Aminotransferase (ALT/SGPT) 21 Alkaline Phosphatase 88 Total Protein 6.5 # Albumin 3.2 #L Globulin 3.30 H Albumin/Globulin Ratio 0.96 Medications Medications Current Medications Lactated Ringer's (Lr) 1,000 ml @ 200 mls/hr Q5H IV Last administered on 04/12 05:43; Admin Dose 200 MLS/HR; Start 04/11/17 at 16:30 Enoxaparin Sodium (Lovenox) 40 mg DAILY SC Last administered on 04/12/17 08: 30; Admin Dose 40 MG; Start 04/12/17 at 09:00; Status Future hold Hydromorphone HCl (Dilaudid) 1 mg Q3H PRN IV PAIN Last administered on 15:35; Admin Dose 1 MG; Start 04/11/17 at 18:00 Ondansetron HCl (Zofran Inj) 4 mg Q6H PRN IV NAUSEA AND/OR VOMITING Last administered on 04/12/17 02:38; Admin Dose 4 MG; Start 04/11/17 at 21:00 Metoclopramide HCl (Reglan) 10 mg Q4H PRN IV NAUSEA AND/OR VOMITING Last administered on 04/12/17 05:45; Admin Dose 10 MG; Start 04/11/17 at 21:00 DELIA BURNS M.D. Apr 12, 2017 18:29
[2017-04-13] MEDS: HYDROmorphONE 1 MG/ML SYG IV PRN ×5 (03:07→21:59)
[2017-04-13] MEDS: LACTATED RINGER'S 1,000 ML IV SCH ×4 (06:13→23:30)
[2017-04-13 08:20] VITALS: BP 110/58; RESP 18
[2017-04-13 08:45] LABS: BASOPHILS % 0.2 % (0.0-2.0); EOSINOPHILS % 0.1 % (0.0-7.0); HEMATOCRIT 39.6 % (37.0-47.0); HEMOGLOBIN 13.2 g/dl (12.0-16.0); LYMPHOCYTES # 1.3 10^3/ul (0.8-2.9); LYMPHOCYTES % 7.2 % (15.0-51.0); MEAN CORPUSCULAR HEMOGLOBIN 28.9 pg (29.0-33.0); MEAN CORPUSCULAR HGB CONC 33.3 g/dl (32.0-37.0); MEAN CORPUSCULAR VOLUME 86.7 fl (82.0-101.0); MEAN PLATELET VOLUME 8.9 fl (7.4-10.4); MONOCYTE # 1.3 10^3/ul (0.3-0.9); MONOCYTES % 7.1 % (0.0-11.0); NEUTROPHIL # 15.2 10^3/ul (1.6-7.5); NEUTROPHILS % 84.8 % (39.0-77.0); PLATELET COUNT 275 10^3/UL (140-415); RED BLOOD COUNT 4.57 10^6/ul (4.20-5.40); RED CELL DISTRIBUTION WIDTH 13.9 % (11.5-14.5); WHITE BLOOD COUNT 17.9 10^3/ul (4.8-10.8)
[2017-04-13 09:04] LABS: ALBUMIN 3.2 g/dl (3.3-4.9); ALBUMIN/GLOBULIN RATIO 0.88; BILIRUBIN,INDIRECT 0.9 mg/dl (0-1.1); BILIRUBIN,TOTAL 0.9 mg/dl (0.2-1.3); CALCIUM 8.9 mg/dl (8.4-10.2); CREATININE 0.59 mg/dl (0.44-1.00); POTASSIUM 3.6 mmol/L (3.5-5.1); TOTAL PROTEIN 6.8 g/dl (6.1-8.1)
[2017-04-13 09:16] LABS: INR 1.19; PROTIME 15.2 Sec (12.2-14.2); PT RATIO 1.2
[2017-04-13 09:17] LABS: PARTIAL THROMBOPLASTIN TIME 35.5 Sec (25.0-35.0)
[2017-04-13 10:14] LABS: MAGNESIUM 2.1 mg/dl (1.7-2.5)
[2017-04-13] MEDS: METOCLOPRAMIDE 10 MG INJ IV PRN (11:47)
--- NOTE | 2017-04-13 15:09 | PN ---
Date/Time of Note Date/Time of Note DATE: 04/13/17 TIME: 15:07 Assessment/Plan VTE Prophylaxis VTE Prophylaxis Intervention: LMWH Lines/Catheters IV Catheter Type (from Nrsg): Peripheral IV Assessment/Plan Chief Complaint/Hosp Course 71 yo female with h/o pancreatic cyst s/p stent and biopsy two days ago, DMII, HTN who presents with post-ERCP pancreatitis Pancreatitis: - IV LR for volume expansion at 200 cc/hr for now - Pain control as needed - Empiric unasyn Pancreatic cyst concernign for neoplasm - Cancel plan for percutaenous biopsy. EUS at outside facility per Dr Maurer DMII: - Basal/bolus insulin PPx: lmwh Problems: Subjective 24 Hr Interval Summary Free Text/Dictation Pain much better controlled Tolerating clear diet No plan for biopys now, rather EUS at outside hospital per Dr Maurer Exam/Review of Systems Vital Signs Vitals Vital Signs Date Time Temp Pulse Resp B/P Pulse Ox O2 Delivery O2 Flow Rate FiO2 04/13/17 08:20 98.9 77 18 110/58 93 04/11/17 16:50 Room Air 04/11/17 16:12 2.0 Intake and Output 04/12/17 04/12/17 04/13/17 15:00 23:00 07:00 Intake Total 250 ml 250 ml 240 ml Balance 250 ml 250 ml 240 ml Exam Constitutional: alert, oriented, well developed Psych: nl mood/affect, no complaints Head: atraumatic, normocephalic Eyes: EOMI, PERRL, nl conjunctiva, nl lids, nl sclera ENMT: nl external ears & nose, nl lips & teeth, nl nasal mucosa & septum Neck: non-tender, supple Respiratory: clear to auscultation, normal air movement Cardiovascular: nl pulses, regular rate and rhythm Gastrointestinal: nl liver, spleen, non-tender, soft Musculoskeletal: nl extremities to inspection, nl gait and stance Extremities: normal pulses 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, nl mental status, nl speech, nl strength Skin: nl turgor, No rash or lesions Lymph: nl lymph nodes Results Result Diagram: 04/13/17 0807 04/13/17 0807 Results 24 hrs Laboratory Tests Test 04/13/17 08:07 White Blood Count 17.9 H Red Blood Count 4.57 Hemoglobin 13.2 Hematocrit 39.6 Mean Corpuscular Volume 86.7 Mean Corpuscular Hemoglobin 28.9 L Mean Corpuscular Hemoglobin Concent 33.3 Red Cell Distribution Width 13.9 Platelet Count 275 # Mean Platelet Volume 8.9 Neutrophils % 84.8 H Lymphocytes % 7.2 L Monocytes % 7.1 Eosinophils % 0.1 Basophils % 0.2 Nucleated Red Blood Cells % 0.0 Neutrophils # 15.2 H Lymphocytes # 1.3 Monocytes # 1.3 H Eosinophils # 0.0 Basophils # 0.0 Nucleated Red Blood Cells # 0.0 Prothrombin Time 15.2 #H Prothrombin Time Ratio 1.2 INR International Normalized Ratio 1.19 Activated Partial Thromboplast Time 35.5 H Sodium Level 142 Potassium Level 3.6 Chloride Level 103 Carbon Dioxide Level 31 Anion Gap 12 Blood Urea Nitrogen 10 Creatinine 0.59 Glucose Level 132 Lactic Acid Level 1.3 Calcium Level 8.9 Phosphorus Level 2.0 L Magnesium Level 2.1 Total Bilirubin 0.9 Direct Bilirubin 0.00 Indirect Bilirubin 0.9 Aspartate Amino Transf (AST/SGOT) 22 Alanine Aminotransferase (ALT/SGPT) 25 Alkaline Phosphatase 100 Total Protein 6.8 Albumin 3.2 L Globulin 3.60 H Albumin/Globulin Ratio 0.88 Medications Medications Current Medications Lactated Ringer's (Lr) 1,000 ml @ 200 mls/hr Q5H IV Last administered on 04/13 11:47; Admin Dose 200 MLS/HR; Start 04/11/17 at 16:30 Enoxaparin Sodium (Lovenox) 40 mg DAILY SC Last administered on 04/12/17 08: 30; Admin Dose 40 MG; Start 04/12/17 at 09:00; Status Future hold Hydromorphone HCl (Dilaudid) 1 mg Q3H PRN IV PAIN Last administered on 09:55; Admin Dose 1 MG; Start 04/11/17 at 18:00 Ondansetron HCl (Zofran Inj) 4 mg Q6H PRN IV NAUSEA AND/OR VOMITING Last administered on 04/12/17 02:38; Admin Dose 4 MG; Start 04/11/17 at 21:00 Metoclopramide HCl 10 mg 10 mg Q4H PRN IV NAUSEA AND/OR VOMITING Last administered on 04/13/17 11:47; Admin Dose 10 MG; Start 04/11/17 at 21:00 Ampicillin Sodium/ Sulbactam Sodium (Unasyn 3gm/NS (Pmx)) 100 ml @ 100 mls/hr Q6 IVPB ; Start 04/13/17 at 18:00; Status TEA AZUL MD Apr 13, 2017 15:08
[2017-04-13] MEDS: AMPICILLIN/SULB 3 GM/NS (PMX) 100 ML IVPB SCH ×2 (18:09→23:59)
--- NOTE | 2017-04-13 19:42 | CONS ---
DATE OF ADMISSION: 04/11/2017 DATE OF CONSULTATION: 04/13/2017 HISTORY OF PRESENT ILLNESS: The patient is admitted to the hospital with abdominal pain secondary t o pancreatitis. Patient had a recent ERCP and stent placement. She has a cystic mass in the tail o f the pancreas. Pancreatic surgeon consultation has been obtained. PHYSICAL EXAMINATION: GENERAL: The patient is a 71-year-old female who at this time is alert. VITAL SIGNS: Afebrile, blood pressure 110/58. ABDOMEN: Showed a soft mass. Not much tenderness today. LABORATORY WORKUP: WBC count 17,900. The lipase is not available from today. CLINICAL IMPRESSION: The patient admitted with pancreatitis. She has history of cystic mass in the tail of the pancreas, status post ERCP and pancreatic duct stent placement. PLAN: At this time, patient will wait to resolve the pancreatitis. Subsequently patient will be di scharged and endoscopic ultrasound and biopsy of the cystic mass will be performed as an outpatient. Further management will be depending upon the biopsy results of the pancreatic mass. Dictated By: GAURI JANE/DENILSON Conf#: [id number] DID#: [id number]
[2017-04-13 21:28] VITALS: BP 139/70; RESP 18
--- NOTE | 2017-04-13 21:29 | PN ---
Date/Time of Note Date/Time of Note DATE: 04/13/17 TIME: 21:24 Assessment/Plan Lines/Catheters IV Catheter Type (from Nrsg): Peripheral IV Assessment/Plan Assessment/Plan [facility] Progress Note Date of Service: 04/13/2017 Location of Service: [facility] 2nd floor [facility] Today's Assessment & Plan: Overall stable. Abd pain improved. Expect continued improvement without surgical intervention. Explained to patient and family and answered all questions. Patient and family appeared to understand and agreed with plans. Previous assessments that apply today: A very-pleasant 71-year-old lady with a few comorbidities presenting with a distal tail of the pancreas cystic lesion which appears to be either simple serous cyst versus mucinous cystadenoma. Unlikely to be and I PMN but that is in the differential. She also has mild dilation of the pancreatic duct without associated obvious stricture in the proximal duct or ampullary mass. Cytology has been negative. Her current abdominal pain is likely exacerbated by post ERCP pancreatitis and should get better. Most value based care in this situation is to arrange for the patient to have an endoscopic ultrasound evaluation of her pancreas. If there are concerning features of a mucinous cystadenoma, or other premalignant or malignant findings, and the patient could potentially undergo a distal pancreatectomy. I do not currently recommend percutaneous access of this cyst since we have ability to do endoscopic ultrasound evaluation. With above assessment, I've recommended the followin. Continue current cares with intravenous antimicrobial coverage for possible ascending cholangitis since the biliary system was accessed and treated for post ERCP pancreatitis 2. Discharge when medically stable 3. I will kindly ask my office to assist with arrangement for outpatient endoscopic ultrasound evaluation 4. Multidisciplinary tumor board presentation 5. Follow-up with me after above is done Thank you very much for having me involved in the care of this very pleasant patient and wonderful family. If you have any questions, please feel free to contact me at [phone]. Nature of presenting problem: High severity Please note that, given the extensive number of diagnoses or management options , the extensive amount and/or complexity of data needed to be reviewed, and high risk of complications and/or morbidity or mortality, this qualifies as high complexity type of decision-making. Disclaimers: 1. Inadvertent spelling and grammatical errors are likely due to electronic health record (EHR)/dictation software used and do not reflect on the quality of delivered patient care. 2. The electronic timestamp recorded on this note does not necessarily reflect the actual date and time of the visit or the service. 3. Portions of this note may have been created through electronic templates and computer algorithms that might bring in information either from the system or from other physicians and providers. Please note that such information may or may not contain errors, the occurrence of which are outside of my control. In general (but not always) this happens either in the beginning or at the end of the note. The portion of the note that I have created are generally done in 1 continuous block of text, flanked at the beginning and at the end by " ", and entered into one field in the EHR. 4. There may be other unanticipated errors in the note that are outside of my control. I can only attest to the portions of the note that I have created. Updated clinical summary: A very-pleasant 71-year-old lady with a few comorbidities presenting with a distal tail of the pancreas cystic lesion which appears to be either simple serous cyst versus mucinous cystadenoma. Comorbidities: 1. BMI 29.1 2. Possible fatty infiltration of the liver 3. Accessory splenule 4. Diastasis rectus with a small midline umbilical hernia containing only fat 5. 2.8 cm right adnexal cyst 6. Status post hysterectomy 7. Osteoarthritis of the thoracic and lumbosacral spine 8. Atherosclerotic vascular disease 9. Hemoglobin A1c 6.6 10. Albumin 3.2 after hydration 11. Diabetes mellitus type 2 12. Hypertension 13. Status post ERCP [facility] 04/09/2017 with pancreatic duct stenting. Subjective: No major events or complaints overnight; feels improved; still with abdominal pain and under control with medications; no n/v/d; no sob or cp; - bowel activity; minimal to no activity Objective: Vitals: See below Exam: GENERAL: On exam, the patient was laying in bed and appeared to be comfortable and in no acute distress. ABDOMEN: Soft, nontender and nondistended. There are no peritoneal signs or guarding. SKIN: Skin appears to be pink and feels warm to touch. NEUROLOGIC: Patient is awake, alert, and follows commands appropriately. Exam/Review of Systems Vital Signs Vitals Vital Signs Date Time Temp Pulse Resp B/P Pulse Ox O2 Delivery O2 Flow Rate FiO2 04/13/17 08:20 98.9 77 18 110/58 93 04/11/17 16:50 Room Air 04/11/17 16:12 2.0 Intake and Output 04/12/17 04/12/17 04/13/17 15:00 23:00 07:00 Intake Total 250 ml 250 ml 240 ml Balance 250 ml 250 ml 240 ml Results Result Diagram: 04/13/17 0807 04/13/17 0807 DELIA BURNS M.D. Apr 13, 2017 21:29
[2017-04-14] MEDS: LACTATED RINGER'S 1,000 ML IV SCH ×7 (00:07→23:44)
[2017-04-14] MEDS: HYDROmorphONE 1 MG/ML SYG IV PRN ×4 (01:58→23:43)
[2017-04-14 02:00] VITALS: BP 137/81; RESP 21
[2017-04-14] MEDS: METOCLOPRAMIDE 10 MG INJ IV PRN ×2 (05:18→23:49)
[2017-04-14] MEDS: AMPICILLIN/SULB 3 GM/NS (PMX) 100 ML IVPB SCH ×4 (05:21→23:44)
[2017-04-14 06:00] LABS: WHITE BLOOD COUNT 15.8 10^3/ul (4.8-10.8)
[2017-04-14 06:01] LABS: BASOPHILS % 0.2 % (0.0-2.0); EOSINOPHILS # 0.1 10^3/ul (0.0-0.5); EOSINOPHILS % 0.4 % (0.0-7.0); HEMATOCRIT 38.4 % (37.0-47.0); LYMPHOCYTES # 1.7 10^3/ul (0.8-2.9); LYMPHOCYTES % 10.6 % (15.0-51.0); MEAN CORPUSCULAR HEMOGLOBIN 28.6 pg (29.0-33.0); MEAN CORPUSCULAR HGB CONC 33.9 g/dl (32.0-37.0); MEAN CORPUSCULAR VOLUME 84.4 fl (82.0-101.0); MONOCYTE # 1.3 10^3/ul (0.3-0.9); MONOCYTES % 8.4 % (0.0-11.0); NEUTROPHIL # 12.6 10^3/ul (1.6-7.5); NEUTROPHILS % 79.7 % (39.0-77.0); PLATELET COUNT 304 10^3/UL (140-415); RED BLOOD COUNT 4.55 10^6/ul (4.20-5.40)
[2017-04-14 06:24] LABS: INR 1.14; PROTIME 14.6 Sec (12.2-14.2); PT RATIO 1.1
[2017-04-14 06:25] LABS: PARTIAL THROMBOPLASTIN TIME 34.1 Sec (25.0-35.0)
[2017-04-14 06:56] LABS: ALBUMIN 3.4 g/dl (3.3-4.9); BILIRUBIN,INDIRECT 0.8 mg/dl (0-1.1); BILIRUBIN,TOTAL 0.8 mg/dl (0.2-1.3); CALCIUM 8.8 mg/dl (8.4-10.2); CREATININE 0.56 mg/dl (0.44-1.00); PHOSPHORUS 2.5 mg/dl (2.5-4.9); POTASSIUM 3.2 mmol/L (3.5-5.1); TOTAL PROTEIN 6.8 g/dl (6.1-8.1)
[2017-04-14 08:00] VITALS: BP 161/89; RESP 18
[2017-04-14] MEDS: ENOXAPARIN 40 MG/0.4 ML SYG SC SCH ×2 (09:00→11:27)
--- NOTE | 2017-04-14 11:19 | PN ---
Date/Time of Note Date/Time of Note DATE: 04/14/17 TIME: :18 Assessment/Plan Lines/Catheters IV Catheter Type (from Nrsg): Peripheral IV Assessment/Plan Assessment/Plan [facility] Progress Note Date of Service: 04/14/2017 Location of Service: [facility] 2nd floor [facility] Today's Assessment & Plan: Overall stable and improving. Abd pain much improved. Expect continued improvement without surgical intervention. Explained to patient and family and answered all questions. Patient and family appeared to understand and agreed with plans. Previous assessments that apply today: A very-pleasant 71-year-old lady with a few comorbidities presenting with a distal tail of the pancreas cystic lesion which appears to be either simple serous cyst versus mucinous cystadenoma. Unlikely to be and I PMN but that is in the differential. She also has mild dilation of the pancreatic duct without associated obvious stricture in the proximal duct or ampullary mass. Cytology has been negative. Her current abdominal pain is likely exacerbated by post ERCP pancreatitis and should get better. Most value based care in this situation is to arrange for the patient to have an endoscopic ultrasound evaluation of her pancreas. If there are concerning features of a mucinous cystadenoma, or other premalignant or malignant findings, and the patient could potentially undergo a distal pancreatectomy. I do not currently recommend percutaneous access of this cyst since we have ability to do endoscopic ultrasound evaluation. With above assessment, I've recommended the followin. Continue current cares with intravenous antimicrobial coverage for possible ascending cholangitis since the biliary system was accessed and treated for post ERCP pancreatitis 2. Discharge when medically stable 3. I will ask my office to kindly assist with arrangement for outpatient endoscopic ultrasound evaluation 4. Multidisciplinary tumor board presentation 5. Follow-up with me after above is done Thank you very much for having me involved in the care of this very pleasant patient and wonderful family. If you have any questions, please feel free to contact me at [phone]. Nature of presenting problem: High severity Please note that, given the extensive number of diagnoses or management options , the extensive amount and/or complexity of data needed to be reviewed, and high risk of complications and/or morbidity or mortality, this qualifies as high complexity type of decision-making. Disclaimers: 1. Inadvertent spelling and grammatical errors are likely due to electronic health record (EHR)/dictation software used and do not reflect on the quality of delivered patient care. 2. The electronic timestamp recorded on this note does not necessarily reflect the actual date and time of the visit or the service. 3. Portions of this note may have been created through electronic templates and computer algorithms that might bring in information either from the system or from other physicians and providers. Please note that such information may or may not contain errors, the occurrence of which are outside of my control. In general (but not always) this happens either in the beginning or at the end of the note. The portion of the note that I have created are generally done in 1 continuous block of text, flanked at the beginning and at the end by " ", and entered into one field in the EHR. 4. There may be other unanticipated errors in the note that are outside of my control. I can only attest to the portions of the note that I have created. Updated clinical summary: A very-pleasant 71-year-old lady with a few comorbidities presenting with a distal tail of the pancreas cystic lesion which appears to be either simple serous cyst versus mucinous cystadenoma. Comorbidities: 1. BMI 29.1 2. Possible fatty infiltration of the liver 3. Accessory splenule 4. Diastasis rectus with a small midline umbilical hernia containing only fat 5. 2.8 cm right adnexal cyst 6. Status post hysterectomy 7. Osteoarthritis of the thoracic and lumbosacral spine 8. Atherosclerotic vascular disease 9. Hemoglobin A1c 6.6 10. Albumin 3.2 after hydration 11. Diabetes mellitus type 2 12. Hypertension 13. Status post ERCP [facility] 04/09/2017 with pancreatic duct stenting. Subjective: No major events or complaints overnight; feels improved; less abdominal pain and under control with medications; no n/v/d; no sob or cp; + bowel activity; + activity Objective: Vitals: See below Exam: GENERAL: On exam, the patient was standing up in her room and appeared to be comfortable and in no acute distress. ABDOMEN: Soft, nontender and nondistended. There are no peritoneal signs or guarding. SKIN: Skin appears to be pink and feels warm to touch. NEUROLOGIC: Patient is awake, alert, and follows commands appropriately. Exam/Review of Systems Vital Signs Vitals Vital Signs Date Time Temp Pulse Resp B/P Pulse Ox O2 Delivery O2 Flow Rate FiO2 04/14/17 08:00 97.7 77 18 161/89 92 04/11/17 16:50 Room Air 04/11/17 16:12 2.0 Intake and Output 04/13/17 04/13/17 04/14/17 15:00 23:00 07:00 Intake Total 1000 ml 1580 ml 1750 ml Balance 1000 ml 1580 ml 1750 ml Results Result Diagram: 04/14/17 0515 04/14/17 0515 DELIA BURNS M.D. Apr 14, 2017 11:19
--- NOTE | 2017-04-14 17:31 | PN ---
Date/Time of Note Date/Time of Note DATE: 04/14/17 TIME: 17:30 Assessment/Plan VTE Prophylaxis VTE Prophylaxis Intervention: LMWH Lines/Catheters IV Catheter Type (from Nrsg): Peripheral IV Assessment/Plan Chief Complaint/Hosp Course 71 yo female with h/o pancreatic cyst s/p stent and biopsy two days ago, DMII, HTN who presents with post-ERCP pancreatitis Pancreatitis: - IV LR for volume expansion at 200 cc/hr for now - Pain control as needed - Empiric unasyn - Advance diet Pancreatic cyst concernign for neoplasm - EUS to be arranged at outside facility per Dr Maurer DMII: - Basal/bolus insulin PPx: lmwh Discharge home tomorrow Problems: Subjective 24 Hr Interval Summary Free Text/Dictation Much improved, pain controlled, tolerating diet Exam/Review of Systems Vital Signs Vitals Vital Signs Date Time Temp Pulse Resp B/P Pulse Ox O2 Delivery O2 Flow Rate FiO2 04/14/17 08:00 97.7 77 18 161/89 92 04/11/17 16:50 Room Air 04/11/17 16:12 2.0 Intake and Output 04/13/17 04/13/17 04/14/17 15:00 23:00 07:00 Intake Total 1000 ml 1580 ml 1750 ml Balance 1000 ml 1580 ml 1750 ml Exam Constitutional: alert, oriented, well developed Psych: nl mood/affect, no complaints Head: atraumatic, normocephalic Eyes: EOMI, PERRL, nl conjunctiva, nl lids, nl sclera ENMT: nl external ears & nose, nl lips & teeth, nl nasal mucosa & septum Neck: non-tender, supple Respiratory: clear to auscultation, normal air movement Cardiovascular: nl pulses, regular rate and rhythm Gastrointestinal: nl liver, spleen, non-tender, soft Musculoskeletal: nl extremities to inspection, nl gait and stance Extremities: normal pulses Neurological: [employer] II-XII intact, nl mental status, nl speech, nl strength Skin: nl turgor, No rash or lesions Lymph: nl lymph nodes Results Result Diagram: 04/14/1715 04/14/17 0515 Results 24 hrs Laboratory Tests Test 04/14/17 05:15 White Blood Count 15.8 H Red Blood Count 4.55 Hemoglobin 13.0 Hematocrit 38.4 Mean Corpuscular Volume 84.4 Mean Corpuscular Hemoglobin 28.6 L Mean Corpuscular Hemoglobin Concent 33.9 Red Cell Distribution Width 14.0 Platelet Count 304 Mean Platelet Volume 9.0 Neutrophils % 79.7 H Lymphocytes % 10.6 L Monocytes % 8.4 Eosinophils % 0.4 Basophils % 0.2 Nucleated Red Blood Cells % 0.0 Neutrophils # 12.6 H Lymphocytes # 1.7 Monocytes # 1.3 H Eosinophils # 0.1 Basophils # 0.0 Nucleated Red Blood Cells # 0.0 Prothrombin Time 14.6 H Prothrombin Time Ratio 1.1 INR International Normalized Ratio 1.14 Activated Partial Thromboplast Time 34.1 Sodium Level 145 H Potassium Level 3.2 L Chloride Level 100 Carbon Dioxide Level 33 H Anion Gap 15 Blood Urea Nitrogen 6 L Creatinine 0.56 Glucose Level 139 Calcium Level 8.8 Phosphorus Level 2.5 Magnesium Level 2.0 Total Bilirubin 0.8 Direct Bilirubin 0.00 Indirect Bilirubin 0.8 Aspartate Amino Transf (AST/SGOT) 32 Alanine Aminotransferase (ALT/SGPT) 22 Alkaline Phosphatase 113 B-Type Natriuretic Peptide 1020 H Total Protein 6.8 Albumin 3.4 Globulin 3.40 H Albumin/Globulin Ratio 1.00 Lipase 55 Medications Medications Current Medications Lactated Ringer's (Lr) 1,000 ml @ 200 mls/hr Q5H IV Last administered on 04/14 17:23; Admin Dose 200 MLS/HR; Start 04/11/17 at 16:30 Enoxaparin Sodium (Lovenox) 40 mg DAILY SC Last administered on 04/14/17 11: 27; Admin Dose 40 MG; Start 04/12/17 at 09:00; Status Future hold Hydromorphone HCl (Dilaudid) 1 mg Q3H PRN IV PAIN Last administered on 05:17; Admin Dose 1 MG; Start 04/11/17 at 18:00 Ondansetron HCl (Zofran Inj) 4 mg Q6H PRN IV NAUSEA AND/OR VOMITING Last administered on 04/12/17 02:38; Admin Dose 4 MG; Start 04/11/17 at 21:00 Metoclopramide HCl 10 mg 10 mg Q4H PRN IV NAUSEA AND/OR VOMITING Last administered on 04/14/17 05:18; Admin Dose 10 MG; Start 04/11/17 at 21:00 Ampicillin Sodium/ Sulbactam Sodium (Unasyn 3gm/NS (Pmx)) 100 ml @ 100 mls/hr Q6 IVPB Last administered on 04/14/17t 17:22; Admin Dose 100 MLS/HR; Start at 18:00 TEA HAMEED MD Apr 14, 2017 17:31
[2017-04-14 20:00] VITALS: BP 141/78; RESP 18
[2017-04-15 02:00] VITALS: BP 139/78; RESP 18
[2017-04-15] MEDS: AMPICILLIN/SULB 3 GM/NS (PMX) 100 ML IVPB SCH ×2 (05:20→12:10)
[2017-04-15] MEDS: LACTATED RINGER'S 1,000 ML IV SCH ×3 (05:21→15:30)
[2017-04-15] MEDS ORDERED: HYDROCODONE/APAP (5/325) TAB ONE (08:01)
[2017-04-15] MEDS: HYDROmorphONE 1 MG/ML SYG IV PRN (08:05)
[2017-04-15] MEDS: ENOXAPARIN 40 MG/0.4 ML SYG SC SCH (08:10)
[2017-04-15 08:37] VITALS: BP 123/78; RESP 17
[2017-04-15 09:11] LABS: BASOPHILS % 0.3 % (0.0-2.0); EOSINOPHILS # 0.1 10^3/ul (0.0-0.5); EOSINOPHILS % 0.7 % (0.0-7.0); HEMOGLOBIN 12.8 g/dl (12.0-16.0); LYMPHOCYTES # 1.4 10^3/ul (0.8-2.9); LYMPHOCYTES % 10.8 % (15.0-51.0); MEAN CORPUSCULAR HEMOGLOBIN 28.2 pg (29.0-33.0); MEAN CORPUSCULAR HGB CONC 33.7 g/dl (32.0-37.0); MEAN CORPUSCULAR VOLUME 83.7 fl (82.0-101.0); MEAN PLATELET VOLUME 8.7 fl (7.4-10.4); MONOCYTE # 1.4 10^3/ul (0.3-0.9); MONOCYTES % 10.7 % (0.0-11.0); NEUTROPHIL # 9.7 10^3/ul (1.6-7.5); NEUTROPHILS % 76.2 % (39.0-77.0); PLATELET COUNT 306 10^3/UL (140-415); RED BLOOD COUNT 4.54 10^6/ul (4.20-5.40); RED CELL DISTRIBUTION WIDTH 13.7 % (11.5-14.5); WHITE BLOOD COUNT 12.7 10^3/ul (4.8-10.8)
[2017-04-15 09:35] LABS: ALBUMIN 3.3 g/dl (3.3-4.9); ALBUMIN/GLOBULIN RATIO 1.06; BILIRUBIN,INDIRECT 0.7 mg/dl (0-1.1); BILIRUBIN,TOTAL 0.7 mg/dl (0.2-1.3); CALCIUM 8.3 mg/dl (8.4-10.2); CREATININE 0.56 mg/dl (0.44-1.00); POTASSIUM 3.1 mmol/L (3.5-5.1); TOTAL PROTEIN 6.4 g/dl (6.1-8.1)
[2017-04-15 09:47] LABS: INR 1.16; MAGNESIUM 1.9 mg/dl (1.7-2.5); PHOSPHORUS 3.3 mg/dl (2.5-4.9); PROTIME 14.9 Sec (12.2-14.2); PT RATIO 1.2
[2017-04-15 09:48] LABS: PARTIAL THROMBOPLASTIN TIME 33.8 Sec (25.0-35.0)
[2017-04-15] MEDS ORDERED: POTASSIUM CHLORIDE (SR) 20 MEQ TAB PO ONE (10:00)
--- NOTE | 2017-04-15 14:18 | PDOCDIS ---
Discharge Instructions DIAGNOSIS Discharge Diagnosis Pancreatitis CONDITION Patient Condition: Good HOME CARE INSTRUCTIONS: Special Diet: clera liquid FOLLOW UP/APPOINTMENTS Follow-up Plan Make an appointment with Dr Mark Maurer to schedule an ultrasound of your pancreas Return to the hospital if you have pain or any other concerning symptoms TEA HAMEED MD Apr 15, 2017 14:18
--- NOTE | 2017-04-15 14:20 | DS ---
Date/Time of Note Date/Time of Note DATE: 04/15/17 TIME: 14:19 Discharge Summary Admission/Discharge Info Admit Date/Time Apr 11, 2017 at 14:38 Discharge Date/Time Discharge Diagnosis Pancreatitis Hx of Present Illness 71 yo female with DMII, pancreatitic cyst s/p recent stent and ductal brushing who presents with abdominal pain Patient has had abdominal pain since Apirl. CT imaging has shown pancreatic cyst. On Sunday, ERCP was performed with stent of duct and brushings taken ( benign on path). She says yesterday she started to develop abdominal pain that has only worsened prompting her to come to ED. Here found to have pancreatitis by labs and imaging. Given pain meds, started on fluids Hospital Course 71 yo female with h/o pancreatic cyst s/p stent and biopsy two days ago, DMII, HTN who presents with post-ERCP pancreatitis Pancreatitis: - IV LR for volume expansion at 200 cc/hr for now - Pain control as needed - Empiric unasyn - Advance diet Pancreatic cyst concernign for neoplasm - EUS to be arranged at outside facility per Dr Maurer DMII: - Basal/bolus insulin PPx: lmwh The patient was found to have acute pancreatitis as a result of her ERCP. She was given IV fluids and pain medications and her symptoms resolved. She was seen by Santino Farr and Erasto, with plan to perform and EUS of her pancreatitic mass in the coming weeks. This will be scheduled as an outpatient per Dr Maurer. Home Meds Reported Medications Aspirin* (Aspirin* EC) 81 Mg Tablet.dr, 81 MG PO DAILY WITH FOOD, TAB 09/18/16 Simvastatin (Simvastatin) 20 Mg Tablet, 20 MG PO QHS for HIGH CHOLESTEROL, #30 TAB 09/18/16 Fosinopril Sodium (Fosinopril Sodium) 20 Mg Tablet, 20 MG PO DAILY for BLOOD PRESSURE and KIDNEYS, TAB 09/18/16 Discontinued Reported Medications Metformin* (Glucophage*) 500 Mg Tab, 500 MG PO WITH EVENING MEALS, #30 TAB 09/18/16 Discontinued Scripts [Oxycodone/Acetamin (5/325)] 1 TAB TAB No Conflict Check, 1 TAB PO Q4 Y for MODERATE PAIN LEVEL 4-6, #40 Prov:PITO LEE 09/21/16 Follow-up Plan Make an appointment with Dr Mark Maurer to schedule an ultrasound of your pancreas Return to the hospital if you have pain or any other concerning symptoms Primary Care Provider [facility] Pending Labs Laboratory Tests Test 04/15/17 08:44 White Blood Count 12.710^3/ul (4.8-10.8) Red Blood Count 4.5410^6/ul (4.20-5.40) Hemoglobin 12.8g/dl (12.0-16.0) Hematocrit 38.0% (37.0-47.0) Mean Corpuscular Volume 83.7fl (82.0-101.0) Mean Corpuscular Hemoglobin 28.2pg (29.0-33.0) Mean Corpuscular Hemoglobin Concent 33.7g/dl (32.0-37.0) Red Cell Distribution Width 13.7% (11.5-14.5) Platelet Count 65143^3/UL (140-415) Mean Platelet Volume 8.7fl (7.4-10.4) Neutrophils % 76.2% (39.0-77.0) Lymphocytes % 10.8% (15.0-51.0) Monocytes % 10.7% (0.0-11.0) Eosinophils % 0.7% (0.0-7.0) Basophils % 0.3% (0.0-2.0) Nucleated Red Blood Cells % 0.0/100WBC (0.0-0.0) Neutrophils # 9.710^3/ul (1.6-7.5) Lymphocytes # 1.410^3/ul (0.8-2.9) Monocytes # 1.410^3/ul (0.3-0.9) Eosinophils # 0.110^3/ul (0.0-0.5) Basophils # 0.010^3/ul (0.0-0.1) Nucleated Red Blood Cells # 0.010^3/ul (0.0-0.0) Prothrombin Time 14.9Sec (12.2-14.2) Prothrombin Time Ratio 1.2 INR International Normalized Ratio 1.16 Activated Partial Thromboplast Time 33.8Sec (25.0-35.0) Sodium Level 141mmol/L (135-144) Potassium Level 3.1mmol/L (3.5-5.1) Chloride Level 97mmol/L (97-110) Carbon Dioxide Level 34mmol/L (21-31) Anion Gap 13 (8-16) Blood Urea Nitrogen 6mg/dl (7-20) Creatinine 0.56mg/dl (0.44-1.00) Glucose Level 142mg/dl (70-220) Calcium Level 8.3mg/dl (8.4-10.2) Phosphorus Level 3.3mg/dl (2.5-4.9) Magnesium Level 1.9mg/dl (1.7-2.5) Total Bilirubin 0.7mg/dl (0.2-1.3) Direct Bilirubin 0.00mg/dl (0.00-0.20) Indirect Bilirubin 0.7mg/dl (0-1.1) Aspartate Amino Transf (AST/SGOT) 29IU/L (15-46) Alanine Aminotransferase (ALT/SGPT) 32IU/L (13-69) Alkaline Phosphatase 108IU/L (42-121) Total Protein 6.4g/dl (6.1-8.1) Albumin 3.3g/dl (3.3-4.9) Globulin 3.10g/dl (1.3-3.2) Albumin/Globulin Ratio 1.06 TEA HAMEED MD Apr 15, 2017 14:20
[2017-04-15 15:19] VITALS: BP 125/78; RESP 16
--- NOTE | 2017-04-16 07:27 | PN ---
DATE: 04/14/2017 SUBJECTIVE: Upon talking to the patient, she is having less pain, no vomiting. She is eating full liquids. She is recovering from the pancreatitis, she had ERCP and stent placement. She has a cystic mass in the tail of the pancreas. She was seen by Dr. Maurer and he wants endoscopic ultrasound-guided bio psy of the cystic mass as an outpatient. PHYSICAL EXAMINATION: GENERAL: The patient is alert. VITAL SIGNS: Temperature 97.7, blood pressure is 161/89. CARDIOVASCULAR: Normal heart sounds. RESPIRATORY: Normal breath sounds. ABDOMEN: Showed evidence of a soft abdomen with no palpable masses. No significant tenderness. LABORATORY WORKUP: Lipase is down to 55, which is normal. Bilirubin 0.8, AST is 32, ALT is 22, alk phos is 113. The WBC count is . CLINICAL IMPRESSION: Resolving pancreatitis, status post endoscopic retrograde cholangiopancreatogr aphy and stent placement and the patient recovering well. PLAN: Continue present management and recommend early discharge. Dictated By: GAURI JANE/DENILSON Conf#: [id number] DID#: [id number] CC: JOSE JOSE MD;*EndCC*
== END 2017-04-15 16:45 | disposition home or self-care (01) | DRG 919 ==
LOC: E/R 09:33 → PP2 14:38
PROVIDERS: ADMIT Internal Medicine; ATTEND Internal Medicine
DX: T88.8XXA Other specified complications of surgical and medical care, not elsewhere classified, initial encounter (principal); K85.90 Acute pancreatitis without necrosis or infection, unspecified; K86.2 Cyst of pancreas; C25.9 Malignant neoplasm of pancreas, unspecified; E11.9 Type 2 diabetes mellitus without complications; I10 Essential (primary) hypertension
CPT/HCPCS: 36415; 74177; 80048; 80053; 81001; 83036; 83605; 83615; 83690; 83735; 83880; 84100; 85025; 85610; 85730; 87040; 90686; 96374; 96375; J0295; J0744; J1170; J1650; J2405; J2765; J3010; J3480; J7040; J7120; Q9967

== ENCOUNTER 2017-04-17 14:54 | Outpatient (CLI) | payer OTHER ==
[~2017-04-17] VITALS: Ht 160 cm; Wt 76.4 kg
[2017-04-17 15:08] VITALS: BP 137/75; PULSE 72; RESP 18; Ht 160 cm; Wt 76.4 kg
--- NOTE | 2017-04-17 15:46 | PN ---
Date/Time of Note Date/Time of Note DATE: 04/17/17 TIME: 15:39 Outpatient Progress Note Chief Complaint Pancreatic cyst/pancreatitis,/diabetes HPI Pancreatic cyst/patient was recently admitted with the abdominal pain, patient has a pancreatic cyst, status post stent and biopsy, no fever chill, Acute pancreatitis/patient was recently admitted with acute pancreatitis, no nausea or vomiting, no fever chill, minimal abdominal discomfort, Diabetes/no polyps or polyuria hypoglycemia, today blood sugar is 129, Review of Systems Const: No Fever, no chills, no Wt. loss, no Fatigue, normal appetite, no diaphoresis. Eyes: No pain, no discharge, no redness, no visual change, no foreign body. ENT: No pain, no bleeding, no congestion, no sore throat, no dysphagia, no discharge or rhinitis. Lymph: No adenopathy, no tender nodes, no lymphedema. Resp: No SOB, no cough, no sputum, no wheezing, no chest pain. CV: No chest pain, no palpitaions, no SCHWAB, no PND, no edema. GI: Normal appetite, mild abdominal pain, no nausea, no vomiting, no diarrhea, no blood, no constipation. : No frequency, no urgency, no dysuria, no hematuria, no flank pain, no discharge, no bleeding. Musc: No back pain, no neck pain, no knee pain, no restricted ROM. Skin: No rash, no skin lesions, no erythema, no laceration, no bruising, no pruritus. Neuro: No PETERSON, no dizziness, no syncope, no seizure, no focal-weakness. Endo: No polyuria, no polydypsia, no dry-skin, no temp-intolerance. Psych: No hallucinations, no depression, no anxiety, no suicidal ideation. Ext: No edema, no pain, no ulcer, no weakness. Physical Exam Vital Signs Date Time Temp Pulse Resp B/P Pulse Ox O2 Delivery O2 Flow Rate FiO2 04/17/17 15:08 98.2 72 18 137/75 96 Room Air General Appearance: A 71 year-old female who appears well-developed, well- nourished, in no acute distress. HEENT: Head normocephalic, atraumatic. Pupils equal, round, reactive to light and accommodate. Sclerae are no jaundice. Nasal turbinates pink without erythema or nasal discharge. Mucous membranes pink and moist without lesions. Oropharynx clear without any exudate or discharge. NECK: Supple. Trachea midline, No thyromegaly, No cervical lymphadenopathy, No mass, No carotid bruits, No JVD, Carotid pulses 2+ bilaterally. PULMONARY: Clear to auscultaion bilaterally, No retractions, Chest expansion symmetric bilaterally, no rales, no ronchi, no dulness on percussion. CARDIAC: Normal SI and S2, Regular rate and rythm, no murmur, gallop, or rub. GASTROINTESTINAL: Abdomen is soft, minimal abdominal discomfort, , Non Rigid, No distention, Positive bowel sounds x4 quadrants, Liver normal. SKIN: Warm, dry, no rash, no bruise, no echmosis. EXTREMITIES: Bilateral lower extremities normal, no edema, no phlabitus, pulse palpable, no contracture. MUSCULOSKELETAL: Spine Normal, Non-tender, Normal range of motion, No swelling, no deformity, no clubbing, or cyanosis, the patient has no edema to bilateral lower extremities, dorsalis pedis pulses palpable bilaterally. NEUROLOGIC: The patient is awake, alert, oriented, responding to yes/no questions appropriately, moving all extremities, cranial nerve intact, normal strenght, normal power, normal coordination, normal gait. Allergies Coded Allergies: No Known Allergy (Unverified , 04/09/17) PMH Pancreatitis/pancreatic cyst/diabetes/history of hypertension Social Hx No smoking no drinking, Family Hx Noncontributory Assessment/Plan Impression Pancreatic cyst/pancreatitis/diabetes/labile hypertension Plan Patient education done about her condition, and prognosis, Patient encouraged to follow with the primary care physician, Patient has minimal discomfort, encouraged to gradually increase activity, will resume all the medication, Monitor blood pressure and blood sugar closely, patient running out fosinopril 20 mg daily, #30 Medications Home Meds Reported Medications Aspirin* (Aspirin* EC) 81 Mg Tablet.dr, 81 MG PO DAILY WITH FOOD, TAB 09/18/16 Simvastatin (Simvastatin) 20 Mg Tablet, 20 MG PO QHS for HIGH CHOLESTEROL, #30 TAB 09/18/16 Fosinopril Sodium (Fosinopril Sodium) 20 Mg Tablet, 20 MG PO DAILY for BLOOD PRESSURE and KIDNEYS, TAB 09/18/16 VERO GAR MD Apr 17, 2017 15:46
== END 2017-04-17 16:23 | disposition home or self-care (01) ==
LOC: DCC 14:54
PROVIDERS: ATTEND Internal Medicine
DX: K86.2 Cyst of pancreas (principal); K85.90 Acute pancreatitis without necrosis or infection, unspecified; E11.9 Type 2 diabetes mellitus without complications; R09.89 Other specified symptoms and signs involving the circulatory and respiratory systems; Z79.82 Long term (current) use of aspirin
CPT/HCPCS: 82962; G0463

== ENCOUNTER 2017-05-01 11:26 | Outpatient (CLI) | payer OTHER ==
[~2017-05-01] VITALS: Ht 160 cm; Wt 75.0 kg
[2017-05-01 11:38] VITALS: BP 121/74; PULSE 69; RESP 16; Ht 160 cm; Wt 75.0 kg
--- NOTE | 2017-05-01 12:21 | PN ---
Date/Time of Note Date/Time of Note DATE: 05/01/17 TIME: 12:18 Outpatient Progress Note Chief Complaint Pancreatitis/diabetes/pancreatic cyst HPI Pancreatitis/patient was recently admitted with a pancreatitis, at present patient has no nausea vomiting or abdominal pain, Diabetes/no polyps or polyuria, patient was taking Glucophage 500 mg daily, after discharge from hospital blood sugar has been under control, patient is not taking Glucophage, Pancreatic cyst/no abdominal pain, no nausea or vomiting, no abdominal distention, Review of Systems Const: No Fever, no chills, no Wt. loss, no Fatigue, normal appetite, no diaphoresis. Eyes: No pain, no discharge, no redness, no visual change, no foreign body. ENT: No pain, no bleeding, no congestion, no sore throat, no dysphagia, no discharge or rhinitis. Lymph: No adenopathy, no tender nodes, no lymphedema. Resp: No SOB, no cough, no sputum, no wheezing, no chest pain. CV: No chest pain, no palpitaions, no SCHWAB, no PND, no edema. GI: Normal appetite, no pain, no nausea, no vomiting, no diarrhea, no blood, no constipation. : No frequency, no urgency, no dysuria, no hematuria, no flank pain, no discharge, no bleeding. Musc: no back pain, no neck pain, no knee pain, no restricted ROM. Skin: No rash, no skin lesions, no erythema, no laceration, no bruising, no pruritus. Neuro: No PETERSON, no dizziness, no syncope, no seizure, no focal-weakness. Endo: No polyuria, no polydypsia, no dry-skin, no temp-intolerance. Psych: No hallucinations, no depression, no anxiety, no suicidal ideation. Ext: No edema, no pain, no ulcer, no weakness. Physical Exam Vital Signs Date Time Temp Pulse Resp B/P Pulse Ox O2 Delivery O2 Flow Rate FiO2 05/01/17 11:38 98.2 69 16 121/74 93 Room Air General Appearance: A 71 year-old female who appears well-developed, well- nourished, in no acute distress. HEENT: Head normocephalic, atraumatic. Pupils equal, round, reactive to light and accommodate. Sclerae are no jaundice. Nasal turbinates pink without erythema or nasal discharge. Mucous membranes pink and moist without lesions. Oropharynx clear without any exudate or discharge. NECK: Supple. Trachea midline, No thyromegaly, No cervical lymphadenopathy, No mass, No carotid bruits, No JVD, Carotid pulses 2+ bilaterally. PULMONARY: Clear to auscultaion bilaterally, No retractions, Chest expansion symmetric bilaterally, no rales, no ronchi, no dulness on percussion. CARDIAC: Normal SI and S2, Regular rate and rythm, no murmur, gallop, or rub. GASTROINTESTINAL: Abdomen is soft, non-tender, Non Rigid, No distention, Positive bowel sounds x4 quadrants, Liver normal. SKIN: Warm, dry, no rash, no bruise, no echmosis. EXTREMITIES: Bilateral lower extremities normal, no edema, no phlabitus, pulse palpable, no contracture. MUSCULOSKELETAL: Spine Normal, Non-tender, Normal range of motion, No swelling, no deformity, no clubbing, or cyanosis, the patient has no edema to bilateral lower extremities, dorsalis pedis pulses palpable bilaterally. NEUROLOGIC: The patient is awake, alert, oriented, responding to yes/no questions appropriately, moving all extremities, cranial nerve intact, normal strenght, normal power, normal coordination, normal gait. Allergies Coded Allergies: No Known Allergy (Unverified , 04/09/17) PMH No change Social Hx No change Family Hx No change Assessment/Plan Impression Pancreatitis resolved Diabetes under control with diet Pancreatic cyst Plan Diabetic education done, patient to continue 1500 ADA diet, and increase activity, Patient to follow with the primary care physician, and follow blood sugar on regular basis and hemoglobin A1c on regular basis, patient education done if patient control the diet and exercise may not need medication, Lose weight, If patient has any abdominal pain, to report to primary care physician, Medications Home Meds Reported Medications Aspirin* (Aspirin* EC) 81 Mg Tablet., 81 MG PO DAILY WITH FOOD, TAB 09/18/16 Simvastatin (Simvastatin) 20 Mg Tablet, 20 MG PO QHS for HIGH CHOLESTEROL, #30 TAB 09/18/16 Fosinopril Sodium (Fosinopril Sodium) 20 Mg Tablet, 20 MG PO DAILY for BLOOD PRESSURE and KIDNEYS, TAB 09/18/16 VERO GAR MD May 01, 2017 12:21
== END 2017-05-01 16:36 | disposition home or self-care (01) ==
LOC: DCC 11:26
PROVIDERS: ATTEND Internal Medicine
DX: K85.90 Acute pancreatitis without necrosis or infection, unspecified (principal); E11.9 Type 2 diabetes mellitus without complications; K86.2 Cyst of pancreas; Z79.82 Long term (current) use of aspirin
CPT/HCPCS: G0463

== ENCOUNTER 2017-09-06 13:33 | Day surgery (SDC) | END 2017-09-06 19:01 | disposition home or self-care (01) ==